=== PATIENT | female | born 1960 | race Caucasian/White ===

== ENCOUNTER 2017-04-08 08:58 | Inpatient (IN) | payer BC ==
--- OUTSIDE RECORDS SUMMARY | 2017-04-08 09:01 | XMS | Clinical Summary ---
:1960 Author Organization [facility] Address [address] [place] [phone] Phone Care Team Providers Name Role Phone , Primary Care Provider Unavailable Allergies Not on File Current Medications Not on file Active Problems Not on file Social History Tobacco Use Types Packs/Day Years Used Date Never Assessed Sex Assigned at Date Recorded Not on file Last Filed Vital Signs Not on file Plan of Treatment Not on file Results Not on filefrom Last 3 Months
[2017-04-08] MEDS ORDERED: Ondansetron HCl/PF 4 MG/2 ML Vial ONE (10:28)
[2017-04-08 10:30] LABS: #Basophils 0.2 thou/uL (0.0-0.2); #Eosinphils 0.3 thou/uL (0.0-0.7); #Lymphocytes 3.3 thou/uL (1.20-3.40); #Monocytes 0.9 thou/uL (0.11-0.59); #Neutrophils 9.3 thou/uL (1.40-6.50); %Basophils 1.2 % (0.0-1.0); %Eosinophils 2.2 % (0.0-10.0); %Lymphocytes 23.5 % (21.0-51.0); %Monocytes 6.7 % (0.0-10.0); Hematocrit 42.8 % (36.0-47.0); Mean Platelet Volume 7.8 fL (7.4-10.4); White Blood Cell (WBC) Count 13.9 thou/uL (4.8-10.8)
[2017-04-08 10:31] LABS: Prothrombin Time 13.8 SEC (12.0-14.7)
[2017-04-08 10:33] LABS: PTT 20.9 SEC (22.9-36.1)
[2017-04-08 10:36] LABS: Lactic Acid - Sepsis 1.5 mmol/L (0.5-2.2)
[2017-04-08 10:41] LABS: ALT (SGPT) 31 U/L (8-55); AST (SGOT) 33 U/L (5-34); Alkaline Phosphatase 88 U/L (40-150); Anion Gap 17 mmol/L (10-20); BUN (Urea Nitrogen) 24 mg/dL (9.8-20.1); Bilirubin, Total 0.8 mg/dL (0.2-1.2); Calc. Creatinine Clearance 0 mL/min (70-130); Calcium 9.6 mg/dL (7.8-10.44); Carbon Dioxide 25 mmol/L (22-29); Chloride 106 mmol/L (98-107); Estimated GFR-MDRD 62; Lipase 40 U/L (8-78); Protein, Total 6.8 g/dL (6.0-8.3)
--- NOTE | 2017-04-08 10:51 | RAD ---
KUB AND UPRIGHT: HISTORY: Abdominal pain. History of lupus, Hodgkin's lymphoma. Lower abdominal cramping for 2-1/2 days. The bowel gas pattern is nonobstructed. No free air. Surgical clips in the right upper quadrant ar e consistent with a prior cholecystectomy. There are surgical chain-type sutures in the left upper quadrant. There is an IV filter present. There are arthritic changes of the spine and there are va scular calcifications. Of note, a right hip prosthesis is present. There are some faint calcificat ions which overlie the lumbar spine and sacrum region. In reviewing a prior 2013 CT examination, th aleida appear to be calcifications related to soft tissue calcifications in that are posterior to the s pine within the subcutaneous tissue. PA CHEST: Heart size is within normal limits. There is some linear scarring of the left upper lobe. No focal infiltrative process. IMPRESSION: No acute changes. Correlation with any old CTs if they are available. POS: [facility]
[2017-04-08] MEDS ORDERED: Cipro 250 MG TAB ONE (11:50)
[2017-04-08] MEDS ORDERED: Ciprofloxacin 500 MG TAB ONE (11:50)
[2017-04-08] MEDS ORDERED: metroNIDAZOLE 500 MG TAB ONE (11:55)
[2017-04-08] MEDS ORDERED: Acetaminophen 325 MG TAB PO PRN (13:13)
[2017-04-08] MEDS ORDERED: Ondansetron ODT 4 MG TAB SL PRN (13:13)
[2017-04-08] MEDS ORDERED: Ondansetron HCl/PF 4 MG/2 ML Vial IVP PRN (13:13)
[2017-04-08 13:18] VITALS: BMI 32.6
[2017-04-08] MEDS ORDERED: ISOVUE-370 76%-LOCM 1 ML ONE (14:16)
[2017-04-08] MEDS ORDERED: Sodium Chloride 0.9% 1,000 ML IV SCH (15:00)
[2017-04-08] MEDS: Lidocaine 2% Viscous Solution 20 ML, Aluminum & Magnesium Hydroxide 30 ML, Donnatal Eli... SSW PRN ×3 (16:13)
[2017-04-08 16:30] LABS: #Eosinphils 0.3 thou/uL (0.0-0.7); #Lymphocytes 2.8 thou/uL (1.20-3.40); #Monocytes 0.7 thou/uL (0.11-0.59); #Neutrophils 5.3 thou/uL (1.40-6.50); %Basophils 0.2 % (0.0-1.0); %Lymphocytes 30.5 % (21.0-51.0); %Monocytes 7.8 % (0.0-10.0); Hematocrit 42.1 % (36.0-47.0); Mean Platelet Volume 6.9 fL (7.4-10.4); Red Blood Cell (RBC) Count 4.47 mill/uL (4.20-5.40)
[2017-04-08] MEDS ORDERED: Lorazepam 1 MG TAB PO PRN (17:59)
[2017-04-08] MEDS ORDERED: Cyclobenzaprine 10 MG TAB PO PRN (17:59)
[2017-04-08] MEDS ORDERED: HYDROcodone/Acetaminophen 10/325 mg Tablet PO PRN (17:59)
[2017-04-08] MEDS ORDERED: metroNIDAZOLE 500 MG TAB PO SCH (18:00)
[2017-04-08] MEDS: Sodium Chloride 0.9% 1,000 ML IV SCH (19:54)
[2017-04-08] MEDS ORDERED: Ciprofloxacin 500 MG TAB PO SCH (20:00)
[2017-04-08] MEDS: metroNIDAZOLE 500 MG in Premix Bag 1 BAG IVPB SCH (20:21)
[2017-04-08] MEDS: Pregabalin 75 MG CAP PO SCH (20:21)
[2017-04-08 21:46] LABS: Hematocrit 41.4 % (36.0-47.0)
--- NOTE | 2017-04-08 21:56 | CON ---
DATE OF CONSULTATION: 04/08/2017 REQUESTING PHYSICIAN: Dr. Evans. REASON FOR CONSULTATION: GI bleeding. HISTORY OF PRESENT ILLNESS: Maddie Topete is a 56-year-old woman seen in the GI outpatient [facility] by my colleague, Dr. Sage Lennon, Dr. Myers is her primary provider. She has a significant hi story of lupus, Sjogren syndrome and Hodgkin's lymphoma, which is in remission. She had a prior sle senia gastrectomy. Notes that her last EGD and colonoscopy were in 2012, the EGD was normal and the c olonoscopy showed only mild left-sided diverticulosis. She denies any significant chronic gastrointestinal symptoms, then 2 days ago she had the fairly acu te onset of crampy lower abdominal pain, later in the day she started having severe watery diarrhea with urgency, this seemed to resolve a bit, but then yesterday cramps returned, she again started meza ving watery diarrhea, but this turned into hematochezia, which lasted through the night, last night. Her lower abdominal cramping pain has persisted and she again passed few blood clots today, though this seems to have slow down. She presented to the Emergency Department where hemoglobin was mike l at 14.6, though declined a bit just at 13.7. FOBT was positive and an abdominal x-ray showed no a cute processes, no evidence of obstruction. She was started empirically on ciprofloxacin and metron idazole IV, and she was given a GI cocktail. Currently, she is feeling a bit better, though the abd ominal discomfort persists. REVIEW OF SYSTEMS: Full review of systems including constitutional, head, eyes, ears, nose, throat, GI, , cardiovascular, respiratory, musculoskeletal and neurologic systems is negative except as n oted in the HPI. PAST MEDICAL HISTORY: 1. Hodgkin lymphoma, status post chemotherapy, in remission. 2. Lupus. 3. Sjogren's syndrome. 4. Depression. 5. Gastric sleeve. 6. Cholecystectomy. 7. Appendectomy. 8. Pulmonary embolus with IVC filter placement. 9. 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 ALLERGIES: SULFASALAZINE and TRAMADOL. OUTPATIENT MEDICATIONS: Plaquenil, prednisone 10 mg daily, Lyrica, folic acid, aspirin 325 mg daily , omeprazole 20 mg daily, diltiazem, Brintellix, bupropion, vitamin, vitamin D3. INPATIENT MEDICATIONS: Ciprofloxacin IV, metronidazole IV, morphine p.r.n., Zofran p.r.n. FAMILY HISTORY: An aunt had colorectal cancer and multiple other malignancies in multiple family me mbers. SOCIAL HISTORY: She is a former smoker. PHYSICAL EXAMINATION: VITAL SIGNS: Temperature 98.0, pulse 56, blood pressure 102/59 and 96% oxygen saturation on room ai r. GENERAL: A 56-year-old woman, obese, lying in bed comfortably, in no distress. MENTAL: Alert and fully oriented, pleasant, conversational, gives a detailed coherent history. SKIN: No jaundice, no rashes were palpable. EYES: No scleral icterus. Extraocular movements intact. ENT: Mucous membranes moist, no oral lesions. LYMPH: No submandibular, supraclavicular lymphadenopathy. THYROID: Nontender to palpation. HEART: Regular rate and rhythm. LUNGS: Clear to auscultation bilaterally. ABDOMEN: Nondistended. Bowel sounds present. Soft, some diffuse tenderness to palpation, particul grant in the right and left lower quadrants. No guarding or rebound tenderness. EXTREMITIES: No peripheral edema. VESSELS: Radial pulses 2+ bilaterally. NEUROLOGICAL: Cranial nerves II through XII intact bilaterally. No focal deficits. LABORATORY STUDIES: Hemoglobin initially 14.6, now 13.7, WBC 9, platelets 155. BUN 24, creatinine 0.93. Sodium 144, potassium 4.4. INR 1.1. Lipase 40. Total bilirubin 0.8, alkaline phosphatase 8 8, AST 33, ALT 31, albumin 3.8. Lactic acid 1.5. FOBT is positive. IMAGING STUDIES: Abdominal x-ray shows no acute processes, no evidence of obstruction and no free a ir. She has an IVC filter and also some sutures in her left upper quadrant. ASSESSMENT AND PLAN: 1. Acute lower abdominal pain. 2. Acute hematochezia. The patient's presentation is all acute. I suspect this represents either ischemic or infectious colitis, or perhaps acute diverticulitis. Note that despite the bleeding, he moglobin remains in normal range. Continue to trend this. I agree with the empiric antibiotic ther apy. I do think it would be worthwhile to get a CT of the abdomen and pelvis to assess for acute di verticulitis picture versus acute colitis. Also, agree with the following stool studies, which have already been ordered to rule out infectious pathogens. If the CT scan is unrevealing and no significant symptomatic improvement tomorrow, then bowel prepar ation for colonoscopy could be considered for further investigation. Thank you for the consultation. Please call with questions or concerns.
--- NOTE | 2017-04-08 23:02 | CT ---
CT ABDOMEN WITH IV CONTRAST CT PELVIS WITH IV CONTRAST 04/08/17 HISTORY: Abdominal pain. Blood in stool. History of appendectomy and cholecystectomy as well as gastric sleev e procedure. COMPARISON: 11/21/[address] abdomen and pelvis on 01/05/14. There is minimal linear scarring versus atelectasis at each lung base. There is decreased density seen in the soft tissues posterior to the lumbar spine with multiple calc ifications noted. This is stable when compared to the prior exams. This is likely related to scarrin g with dystrophic calcifications. The liver, spleen, pancreas, bilateral adrenal glands, and left kidney demonstrate a normal CT appea francia. A punctate nonobstructing superior pole right renal calculus is again noted. Postsurgical changes related to gastric sleeve procedure are present. IVC filter is again noted in place. Vascular calcifications present in the abdominal aorta and involving the iliac arteries. Urinary bladder is normal in appearance. The uterus is small in size. There is colonic diverticulosis without CT evidence of diverticulitis. Cystic left ovary lesion is n ot visualized on this exam. Partially calcified lymph node in the right aspect of the pelvis is again seen. Avascular necrosis involves the superolateral aspect of the left femoral head. Right total hip prost hesis is present. Degenerative changes are again seen in the spine. IMPRESSION: 1. No acute findings are seen in the abdomen or pelvis. 2. Postsurgical changes of the abdomen as described above. 3. Colonic diverticulosis. 4. Area of what is most likely related to scarring posterior to the lumbar spine. 5. Avascular necrosis involving the superolateral aspect of the left femoral head. POS: [facility]
--- NOTE | 2017-04-09 01:49 | HP ---
PRIMARY CARE PHYSICIAN: Dr. Myers. CHIEF COMPLAINT: Bloody diarrhea. HISTORY OF PRESENT ILLNESS: This is a 56-year-old pleasant lady with the past medical history of ciera pus, Sjogren's syndrome, Hodgkin disease status post chemo, history of PE status post-IVC and gómez gonzalez, comes to the [place] [facility] with lower abdominal cramping started about 2-1/2 days. Patie nt had 5-6 episodes of nonbloody, watery diarrhea on Thursday and then had 8 episodes of maroon or blo od stools with bad odor yesterday. Denies any food changes, denies recent traveling or camping. Th e patient denies any fever or chills. Patient came in and was transferred to our hospital for GI ev aluation. The patient denies any chest pain or shortness of breath. PAST MEDICAL HISTORY: Significant for lupus, Sjogren's syndrome, Hodgkin disease status post chemo, PE status post-IVC filter. SOCIAL HISTORY: Occasional alcohol use, denies any smoking or recreational drug use. ALLERGIES: TRAMADOL and SULFASALAZINE. PAST SURGICAL HISTORY: Left salpingo-oophorectomy, appendectomy, left knee surgery, cholecystectomy . MEDICATIONS: Please see MAR. FAMILY HISTORY: Negative for diabetes and hypertension. REVIEW OF SYSTEMS: Significant for no fever, no chills, no headache, no appetite, and latencies. N o cough. No chest pain. GI: As per HPI. No dysuria, no polyuria, no memory or mood changes. No neck pain. PHYSICAL EXAMINATION: VITAL SIGNS: Blood pressure is 127/65, pulse of 63, respirations 20, temperature 98. GENERAL: The patient is lying in bed, in no apparent distress. HEENT: Atraumatic, normocephalic. Pupils equally round, reactive to light. Extraocular movements intact. Mucous membranes moist. NECK: Supple. No JVD. CHEST: Breath sounds. There are no rales or rhonchi. HEART: S1, S2, no murmurs or gallops. ABDOMEN: Has some generalized tenderness. Bowel sounds present, soft, nontender. EXTREMITIES: No cyanosis, clubbing, edema. Distal pulses present. NEUROLOGIC: Alert, awake, oriented. No cranial deficits. No sensorimotor deficits. LABORATORY DATA: KUB shows no acute changes. FOBT is positive. Potassium is 4.4, creatinine is 0. 9, INR is 1.1. WBC count is 9, hemoglobin is 13. ASSESSMENT AND PLAN: 1. Bloody diarrhea, infectious versus inflammatory in nature. We will empirically treat with IV Ci pro and Flagyl. Monitor hemoglobin and hematocrit. Consult Gastroenterology and follow their plan. 2. Sjogren's syndrome. Continue home medications. 3. History of lupus. Continue home medications. 4. Hodgkin's lymphoma, status post chemotherapy, stable. 5. History of pulmonary embolus, status post IVC filter, stable. 6. Sequential compression device for deep venous thrombosis prophylaxis. I will work with Gastroen terology and further monitoring. The patient will monitor hemoglobin and hematocrit, and transfuse as needed. I will work with Gastroenterology and further caring for the patient.
[2017-04-09 05:04] LABS: #Eosinphils 0.3 thou/uL (0.0-0.7); #Lymphocytes 1.9 thou/uL (1.20-3.40); #Monocytes 0.5 thou/uL (0.11-0.59); #Neutrophils 2.8 thou/uL (1.40-6.50); %Basophils 0.8 % (0.0-1.0); %Eosinophils 4.8 % (0.0-10.0); %Lymphocytes 34.1 % (21.0-51.0); %Monocytes 8.6 % (0.0-10.0); Hematocrit 41.8 % (36.0-47.0); Hematocrit 42.9 % (36.0-47.0); Red Blood Cell (RBC) Count 4.44 mill/uL (4.20-5.40); White Blood Cell (WBC) Count 5.4 thou/uL (4.8-10.8)
[2017-04-09] MEDS: metroNIDAZOLE 500 MG in Premix Bag 1 BAG IVPB SCH ×3 (05:18→20:11)
[2017-04-09 05:29] LABS: Anion Gap 13 mmol/L (10-20); BUN (Urea Nitrogen) 12 mg/dL (9.8-20.1); Calc. Creatinine Clearance 105 mL/min (70-130); Calcium 8.9 mg/dL (7.8-10.44); Carbon Dioxide 23 mmol/L (22-29); Chloride 109 mmol/L (98-107); Estimated GFR-MDRD 75
[2017-04-09] MEDS ORDERED: predniSONE 20 MG TAB PO SCH ×2 (08:00→19:00)
[2017-04-09] MEDS: Sodium Chloride 0.9% 1,000 ML IV SCH ×2 (09:28→12:16)
[2017-04-09] MEDS: Hydroxychloroquine Sulfate 200 MG TAB PO SCH (09:30)
[2017-04-09] MEDS: Folic Acid 1 MG TAB PO SCH (09:30)
[2017-04-09] MEDS: Pregabalin 75 MG CAP PO SCH ×3 (09:31→20:11)
[2017-04-09] MEDS: Lidocaine 2% Viscous Solution 20 ML, Aluminum & Magnesium Hydroxide 30 ML, Donnatal Eli... SSW PRN ×3 (12:10)
[2017-04-09] MEDS: VORTIOXETINE HYDROBROMIDE 20 MG PO SCH (12:10)
[2017-04-09 13:58] LABS: Hematocrit 45.6 % (36.0-47.0)
--- NOTE | 2017-04-09 19:08 | PRG ---
DATE OF SERVICE: 04/09/2017 SUBJECTIVE: She had diarrhea this morning, but this has resolved through the rest of the day. No o ngoing abdominal pain currently. No nausea or vomiting. She is tolerating full liquids well. OBJECTIVE: VITAL SIGNS: Temperature 98.2, pulse 94, and blood pressure 104/70. GENERAL: She is in no acute distress, alert and oriented x3. LUNGS: Clear to auscultation bilaterally. HEART: Regular rate and rhythm. ABDOMEN: Soft, mild tenderness diffusely, but more so in the epigastric region. Bowel sounds are p resent. EXTREMITIES: No lower extremity edema. LABORATORY DATA: White blood cell count 5.4, hemoglobin 13.6, platelets 151, and creatinine 0.79. IMPRESSION: Ischemic colitis. She had an onset of watery diarrhea and cramping followed later by earl calderon. This pattern is most consistent with ischemic colitis. Certainly acute infectious colitis is also possible. Given the bleeding, this will be more suggestive of a bacterial colitis and buddy l. So far, the stool studies are negative for Campylobacter antigen, Escherichia coli, Shiga toxin, and Clostridium difficile. She is clinically improving. RECOMMENDATIONS: 1. Complete a 5-day course of ciprofloxacin and metronidazole. 2. Advance to low residue diet in the morning and if she tolerates that, she can discharge home serena orrow with a bland diet for the next several days. 3. If she develops recurrent symptoms suggestive of ischemic colitis in the future, then CT angiogr am of the mesentery can be performed. 4. We will recommend colonoscopy in 4-6 weeks and she can follow up as an outpatient for this. 5. She is encouraged to drink plenty of fluids and maintain good hydration.
--- NOTE | 2017-04-09 19:16 | PRG ---
DATE OF SERVICE: 04/09/2017 SUBJECTIVE: The patient had a bowel movement containing fresh blood earlier today. She continues to have some discomfort in the left lower quadrant. She denies any nausea or vomiting. She is tolerating current diet. No fevers or chills reported. PHYSICAL EXAMINATION: VITAL SIGNS: Temperature 98.2, pulse rate of 94, blood pressure of 104/70 with O2 saturation of 98% on room air. Orthostatic vitals were positive today. Intake of 1535. Output unavailable. GENERAL: A 56-year-old female, in no apparent distress. NECK: Supple. No JVD. LUNGS: Clear to auscultation bilaterally. HEART: S1, S2 present. Regular rate and rhythm. ABDOMEN: Soft, mild left lower quadrant tenderness, without any rebound or guarding. No costovertebral angle tenderness. Bowel sounds present. EXTREMITIES: No edema or calf tenderness. CURRENT MEDICATIONS: Reviewed. LABORATORY DATA: 1. Stool workup was negative for Clostridium difficile, Campylobacter, and Shigella. 2. WBC was 13.9 yesterday. Today was 5.4. 3. Hemoglobin 14.7. 4. BUN 12, creatinine 0.79. IMPRESSION: 1. Sepsis secondary to colitis suspected ischemic versus infectious. 2. Hematochezia secondary to #1. 3. Dehydration. 4. Chronic kidney disease stage 2. 5. Sj?gren's syndrome.. 6. Systemic lupus erythematosus. 7. History of Hodgkin's lymphoma. 8. History of pulmonary embolus, status post IVC filter. 9. Suspected chronic adrenal insufficiency. 10. Orthostatic hypotension. 11. Obesity with body mass index 32.5. 12. Depression. The patient denies any suicidal ideation. 13. History of pulmonary embolism, status post IVC filter. 14. Degenerative joint disease. PLAN: The patient will require a 1-2 more days of hospital stay. We will continue ciprofloxacin and Flagyl. GI following. We will repeat labs in a.m. Home BP medications are currently on hold. We will temporarily increase prednisone to 10 mg b.i.d. We will recheck orthostatic vitals in a.m. Continue IV fluids. Continue other medications. Plan of care was discussed with the patient, she stated understanding MTDD
[2017-04-10] MEDS: Sodium Chloride 0.9% 1,000 ML IV SCH (00:14)
[2017-04-10] MEDS: metroNIDAZOLE 500 MG in Premix Bag 1 BAG IVPB SCH ×3 (04:29→19:51)
[2017-04-10 04:35] LABS: #Eosinphils 0.1 thou/uL (0.0-0.7); #Lymphocytes 1.2 thou/uL (1.20-3.40); #Monocytes 0.4 thou/uL (0.11-0.59); %Basophils 0.3 % (0.0-1.0); %Eosinophils 1.2 % (0.0-10.0); %Monocytes 6.2 % (0.0-10.0); Hematocrit 43.3 % (36.0-47.0); Mean Platelet Volume 7.5 fL (7.4-10.4); Red Blood Cell (RBC) Count 4.62 mill/uL (4.20-5.40); White Blood Cell (WBC) Count 6.8 thou/uL (4.8-10.8)
[2017-04-10 05:02] LABS: Anion Gap 12 mmol/L (10-20); BUN (Urea Nitrogen) 9 mg/dL (9.8-20.1); Calc. Creatinine Clearance 108 mL/min (70-130); Carbon Dioxide 22 mmol/L (22-29); Chloride 110 mmol/L (98-107); Estimated GFR-MDRD 77; Phosphorus 3.9 mg/dL (2.3-4.7)
[2017-04-10] MEDS: Folic Acid 1 MG TAB PO SCH (08:16)
[2017-04-10] MEDS: Hydroxychloroquine Sulfate 200 MG TAB PO SCH (08:16)
[2017-04-10] MEDS: predniSONE 20 MG TAB PO SCH ×2 (08:16→17:50)
[2017-04-10] MEDS: Pregabalin 75 MG CAP PO SCH ×3 (08:17→19:52)
[2017-04-10] MEDS: VORTIOXETINE HYDROBROMIDE 20 MG PO SCH (08:18)
[2017-04-10] MEDS: Lidocaine 2% Viscous Solution 20 ML, Aluminum & Magnesium Hydroxide 30 ML, Donnatal Eli... SSW PRN ×3 (10:47)
--- NOTE | 2017-04-10 14:31 | PRG ---
DATE OF SERVICE: 04/10/2017 SUBJECTIVE: We advanced Ms. Topete's diet to solid food this morning. After that, she developed an other couple of episodes of bloody diarrhea, but she has tolerated her lunch well without any sympto ms, so far. She has no nausea, some mild left lower tenderness, but no ongoing pain. OBJECTIVE: VITAL SIGNS: Temperature 97.8, pulse 63, blood pressure 115/62. GENERAL: No acute distress, awake and alert. LUNGS: Clear to auscultation bilaterally. HEART: Regular rate and rhythm. ABDOMEN: Soft, mildly tender in the left lower quadrant without guarding. Bowel sounds are present . EXTREMITIES: No lower extremity edema. LABORATORY DATA: White blood cell count 6.8 and creatinine 0.77. IMPRESSION: Ischemic colitis. Overall, she is continuing to symptomatically improve. Given the re peat flare of bloody diarrhea this morning, I would watch her one more day and if she continues to i mprove, then anticipate discharge home tomorrow. She remains afebrile. RECOMMENDATIONS: 1. She can complete a 5-day course of ciprofloxacin 500 mg twice daily and metronidazole 500 mg 3 t imes daily. This can be changed to oral once she is ready to be discharged tomorrow. 2. Follow up with me in 4-6 weeks for colonoscopy. 3. She is encouraged to maintain good hydration and drink plenty of fluids. 4. Dr. Werner will round tomorrow if she is not already discharged in the morning by the hospitalist service. 5. If she develops recurrent symptoms suggestive of ischemic colitis in the future, then CT angiogr am of the mesentery can be performed.
--- NOTE | 2017-04-10 16:01 | PDOC.PN ---
- Subjective Encounter Start Date: 04/10/17 Encounter Start Time: 14:15 Subjective: had 2 episodes of dark blood after she moved her bowels this am after break -: -fast, no nausea or vomiting. - Objective MAR Reviewed: Yes Vital Signs & Weight: Vital Signs (12 hours) Temp Pulse Resp BP BP BP BP 04/10/17 15:46 98.2 F 65 16 100/61 85/61 L 107/64 04/10/17 11:47 97.8 F 63 18 115/62 04/10/17 08:00 97.8 F 58 L 16 04/10/17 07:34 97.8 F 58 L 16 124/68 04/10/17 04:00 97.4 F L 62 18 112/68 Pulse Ox 04/10/17 15:46 96 04/10/17 11:47 95 04/10/17 08:00 98 04/10/17 07:34 98 04/10/17 04:00 98 Weight Weight 189 lb 4.8 oz I&O: 04/09/17 04/10/17 04/11/17 06:59 06:59 06:59 Intake Total 1535 240 Balance 1535 240 Result Diagrams: 04/10/17 04:21 04/10/17 04:21 Phys Exam - Physical Examination HEENT: PERRLA, moist MMs Neck: no JVD, supple Respiratory: no wheezing, no rales Cardiovascular: RRR, no significant murmur Gastrointestinal: soft, non-tender, no distention, positive bowel sounds Musculoskeletal: no edema, pulses present Neurological: non-focal, moves all 4 limbs Psychiatric: A&O x 3 Dx/Plan (1) Ischemic colitis, enteritis, or enterocolitis Code(s): K55.9 - VASCULAR DISORDER OF INTESTINE, UNSPECIFIED Status: Acute (2) Dehydration Code(s): E86.0 - DEHYDRATION Status: Resolved (3) History of pulmonary embolus (PE) Code(s): Z86.711 - PERSONAL HISTORY OF PULMONARY EMBOLISM Status: Chronic Comment: prior ivc filter (4) H/O adrenal insufficiency Code(s): Z86.39 - PERSONAL HISTORY OF ENDO, NUTRITIONAL AND METABOLIC DISEASE Status: Chronic Comment: on prednisone (5) H/O Hodgkin's lymphoma Code(s): Z85.71 - PERSONAL HISTORY OF HODGKIN LYMPHOMA Status: Chronic (6) Systemic lupus erythematosus Code(s): M32.9 - SYSTEMIC LUPUS ERYTHEMATOSUS, UNSPECIFIED Status: Chronic - Plan is on cipro and flagyl -: oral prednisone with h/o adrenal insuff -: to amb in hallway as tolerated -: dc plan in am if stable -: h/h is stable so far * . Review of Systems - Medications/Allergies Allergies/Adverse Reactions: Allergies Allergy/AdvReac Type Severity Reaction Status Date / Time sulfasalazine Allergy Rash Verified 01/15/16 09:21 tramadol Allergy Hives Verified 01/15/16 09:21 Medications: Current Medications Hydrocodone Bitart/Acetaminophen ([place] 10/325) 1 tab PO Q4H PRN PRN Reason: Moderate Pain (4-6) Lidocaine HCl 20 ml/ Al Hydroxide/Mg Hydroxide 30 ml/Atropine/Hyoscyam/Phenobarb /Scopol 32.4 mg 0 ml SSW Q6H PRN PRN Reason: ABDOMINAL PAIN Last Admin: 04/10/17 10:47 Dose: 1 dose Cyclobenzaprine HCl (Flexeril) 10 mg PO TIDPRN PRN PRN Reason: Muscle Spasm Folic Acid (Folvite) 1 mg PO DAILY [facility] Last Admin: 04/10/17 08:16 Dose: 1 mg Hydroxychloroquine Sulfate (Plaquenil) 400 mg PO DAILY [facility] Last Admin: 04/10/17 08:16 Dose: 400 mg Ciprofloxacin/Dextrose 400 mg/ (Device) 200 mls @ 200 mls/hr IVPB 1200,2359 [facility] Last Admin: 04/10/17 12:02 Dose: 200 mls Metronidazole 500 mg/ Device 100 mls @ 100 mls/hr IVPB 0400,1200,2000 [facility] Last Admin: 04/10/17 12:02 Dose: 100 mls Sodium Chloride (Normal Saline 0.9%) 1,000 mls @ 75 mls/hr IV .[id number] [facility] Stop: 04/10/17 18:16 Last Admin: 04/10/17 00:14 Dose: 1,000 mls Lorazepam (Ativan) 1 mg PO Q6H PRN PRN Reason: Anxiety Morphine Sulfate (Morphine Sulfate) 1 mg SLOW IVP Q3H PRN PRN Reason: Pain Pantoprazole Sodium (Protonix) 40 mg PO DAILY [facility] Last Admin: 04/10/17 08:16 Dose: 40 mg (Vortioxetine Hydrobromide [ Trintellix] 20 Mg) Tab 0 each PO DAILY [facility] Last Admin: 04/10/17 08:18 Dose: 1 each Prednisone (Prednisone) 10 mg PO BID-[facility] Last Admin: 04/10/17 08:16 Dose: 10 mg Pregabalin (Lyrica) 150 mg PO TID [facility] Last Admin: 04/10/17 15:50 Dose: Not Given
[2017-04-11] MEDS: metroNIDAZOLE 500 MG in Premix Bag 1 BAG IVPB SCH (02:27)
[2017-04-11 08:08] VITALS: TEMP 98
[2017-04-11] MEDS: Hydroxychloroquine Sulfate 200 MG TAB PO SCH (08:26)
[2017-04-11] MEDS: predniSONE 20 MG TAB PO SCH (08:27)
[2017-04-11] MEDS: Pregabalin 75 MG CAP PO SCH (08:27)
[2017-04-11] MEDS: Folic Acid 1 MG TAB PO SCH (08:27)
[2017-04-11] MEDS: VORTIOXETINE HYDROBROMIDE 20 MG PO SCH (08:28)
[2017-04-11 11:33] VITALS: BP 110/70
--- NOTE | 2017-04-11 11:41 | PDOC.PN ---
- Subjective Encounter Start Date: 04/11/17 Encounter Start Time: 11:00 Subjective: feels better, no further bleeding per rectum -: is amb in room - Objective MAR Reviewed: Yes Vital Signs & Weight: Vital Signs (12 hours) Temp Pulse Resp BP BP Pulse Ox 04/11/17 11:32 98.0 F 64 18 110/70 94 L 04/11/17 08:06 98.0 F 53 L 20 115/69 96 04/11/17 08:00 98.0 F 53 L 20 96 Weight Weight 189 lb 4.8 oz I&O: 04/10/17 04/11/17 04/12/17 06:59 06:59 06:59 Intake Total 240 3360 240 Balance 240 3360 240 Result Diagrams: 04/10/17 04:21 04/10/17 04:21 Phys Exam - Physical Examination HEENT: PERRLA, moist MMs Neck: no JVD, supple Respiratory: no wheezing, no rales Cardiovascular: RRR, no significant murmur Gastrointestinal: soft, non-tender, positive bowel sounds Musculoskeletal: no edema, pulses present Neurological: non-focal, moves all 4 limbs Psychiatric: A&O x 3 Dx/Plan (1) Ischemic colitis, enteritis, or enterocolitis Code(s): K55.9 - VASCULAR DISORDER OF INTESTINE, UNSPECIFIED Status: Acute (2) Dehydration Code(s): E86.0 - DEHYDRATION Status: Resolved (3) History of pulmonary embolus (PE) Code(s): Z86.711 - PERSONAL HISTORY OF PULMONARY EMBOLISM Status: Chronic Comment: prior ivc filter (4) H/O adrenal insufficiency Code(s): Z86.39 - PERSONAL HISTORY OF ENDO, NUTRITIONAL AND METABOLIC DISEASE Status: Chronic Comment: on prednisone (5) H/O Hodgkin's lymphoma Code(s): Z85.71 - PERSONAL HISTORY OF HODGKIN LYMPHOMA Status: Chronic (6) Systemic lupus erythematosus Code(s): M32.9 - SYSTEMIC LUPUS ERYTHEMATOSUS, UNSPECIFIED Status: Chronic - Plan hemostable -: dc pt home -: to f/u with for colonoscopy -: daniel orantes per 's advice * .
--- NOTE | 2017-04-13 07:20 | DIS ---
DATE OF ADMISSION: 04/08/2017 DATE OF DISCHARGE: 04/11/2017 DISCHARGE DISPOSITION: To home. PRIMARY DISCHARGE DIAGNOSES: Ischemic colitis/gastroenteritis with enterocolitis, dehydration, resolved. SECONDARY DISCHARGE DIAGNOSES: History of pulmonary embolus with prior IVC filter, history of adrenal insufficiency on prednisone, history of Hodgkin's lymphoma in remission, history of systemic lupus erythematosus. PROCEDURES DONE DURING HOSPITALIZATION: The patient has had abdominal and pelvic CAT scan with IV contrast done that showed no acute findings. There was colonic diverticulosis. There is also incidental finding of avascular necrosis involving supralateral aspect of left femoral head. Stool cultures for Campylobacter antigen, E. coli, Shiga toxins 1 and 2, C. diff were all negative. Stool occult blood was positive. H\T\H on the day of discharge are 14 and 43. DISCHARGE MEDICATIONS: Cipro 500 mg p.o. twice daily for 5 days, Flagyl 500 mg p.o. 3 times daily for 5 days, prednisone 10 mg p.o. daily, bupropion extended release 300 mg p.o. daily, Trintellix 20 mg p.o. at bedtime, Lyrica 150 mg p.o. 3 times daily, omeprazole 20 mg p.o. daily, Plaquenil 400 mg p.o. daily, [place] p.r.n. for pain, folic acid 1 mg p.o. daily, vitamin D3 5000 units p.o. daily. ALLERGIES: SULFASALIZINE and TRAMADOL. INPATIENT CONSULTS: Dr. Sage Lennon for Gastroenterology. BRIEF COURSE DURING HOSPITALIZATION: The patient got admitted on the with complaints of bloody diarrhea. She has had nearly 8 episodes of maroon or blood -stained stools with bad odor prior to hospitalization. She has had stool studies done which were negative for bacterial etiology. She has had consultation with Dr. Jered Lennon. CT of the abdomen and pelvis did not reveal any acute pathology. The patient was suspected to have ischemic colitis. She was gently hydrated during her stay here with initial presentation with dehydration. She was on empiric antibiotics and will be continued for another 5 days post-discharge. The patient needs to follow up with Dr. Jered Lennon in 2-3 weeks for colonoscopy. She is otherwise hemodynamically stable and has been cleared by Dr. Jered Lennon for discharge. She needs to follow up with her primary care physician in 1 week. Please see a face to face documentation on [facility] for the day of discharge. MTDD
== END 2017-04-11 11:56 | disposition home or self-care (01) | DRG 872 ==
LOC: SCSER 08:58 → OBSVTOIN 11:15 → 2SW 11:15 → T4-B 04-09 14:23
PROVIDERS: ADMIT Internal Medicine; ATTEND Internal Medicine
DX: A41.9 Sepsis, unspecified organism (principal); K55.9 Vascular disorder of intestine, unspecified; C81.90 Hodgkin lymphoma, unspecified, unspecified site; M35.00 Sjogren syndrome, unspecified; M32.9 Systemic lupus erythematosus, unspecified; E86.0 Dehydration; K92.1 Melena; Z86.711 Personal history of pulmonary embolism; Z92.21 Personal history of antineoplastic chemotherapy; Z90.721 Acquired absence of ovaries, unilateral; Z90.49 Acquired absence of other specified parts of digestive tract; Z88.5 Allergy status to narcotic agent; Z88.2 Allergy status to sulfonamides; N18.2 Chronic kidney disease, stage 2 (mild); Z86.39 Personal history of other endocrine, nutritional and metabolic disease; I95.1 Orthostatic hypotension; E66.9 Obesity, unspecified; Z68.32 Body mass index [BMI] 32.0-32.9, adult; F32.9 Major depressive disorder, single episode, unspecified; M19.90 Unspecified osteoarthritis, unspecified site; K52.9 Noninfective gastroenteritis and colitis, unspecified; Z90.3 Acquired absence of stomach [part of]
CPT/HCPCS: 36415; 74022; 74177; 80048; 80053; 82274; 83605; 83690; 83735; 84100; 85025; 85610; 85730; 86850; 86900; 86901; 87015; 87045; 87046; 87324; 87449; 87899; 96361; 96374; 96375; J0744; J2270; J2405; J7506

== ENCOUNTER 2017-05-07 08:41 | Outpatient (CLI) | payer BC ==
--- NOTE | 2017-05-07 11:07 | MRI ---
MRI BRAIN WITH AND WITHOUT CONTRAST: Technique: Multiplanar, multisequential MRI imaging of the brain obtained. Post contrast imaging obt ained with administration of 18 cc of MultiHance IV. History: Confusion. History of Hodgkin's lymphoma. FINDINGS: Ventricles have normal size and position. There is mild cortical volume loss. No evidence of restric farhana diffusion. No mass or edema. There are numerous small foci of high signal in the periventricular and subcortical white matter of both cerebral hemispheres. Chronic ischemic microvascular automatic change would be suspected. There is no evidence of enhancement. The visualized internal carotid arteries and proximal cerebral arteries show flow voids. Basilar art dorothy appears patent. Paranasal sinuses and mastoids are unremarkable. IMPRESSION: Evidence of mild to moderate chronic ischemic white matter changes. MRI brain otherwise unremarkable . POS: TORYH
[2017-05-07] MEDS ORDERED: Gadobenate Dimeglumine 529 MG/1 ML (20ML VIAL) ONE (13:31)
--- OUTSIDE RECORDS SUMMARY | 2017-05-08 01:45 | XMS | Clinical Summary ---
:1960 Author Organization [facility] Address [address] [place] [id number] Phone Care Team Providers Name Role Phone [...]
== END 2017-05-07 08:42 | disposition home or self-care (01) ==
LOC: MRI 08:41
PROVIDERS: ATTEND Student in an Organized Health Care Education/Training Program
DX: G25.2 Other specified forms of tremor (principal); R41.3 Other amnesia; G93.89 Other specified disorders of brain; I26.99 Other pulmonary embolism without acute cor pulmonale; Z79.899 Other long term (current) drug therapy
CPT/HCPCS: 70553; 95816; A9579

== ENCOUNTER 2017-05-21 10:33 | Inpatient (IN) | payer BC ==
[2017-05-21 11:13] LABS: #Basophils 0.1 thou/uL (0.0-0.2); #Eosinphils 0.3 thou/uL (0.0-0.7); #Lymphocytes 1.3 thou/uL (1.20-3.40); #Monocytes 0.7 thou/uL (0.11-0.59); #Neutrophils 7.3 thou/uL (1.40-6.50); %Basophils 1.3 % (0.0-1.0); %Eosinophils 2.8 % (0.0-10.0); %Lymphocytes 13.3 % (21.0-51.0); %Monocytes 7.5 % (0.0-10.0); Hematocrit 43.5 % (36.0-47.0); Mean Platelet Volume 7.7 fL (7.4-10.4); White Blood Cell (WBC) Count 9.7 thou/uL (4.8-10.8)
[2017-05-21 11:19] LABS: PTT 25.8 SEC (22.9-36.1)
[2017-05-21 11:20] LABS: Prothrombin Time 14.4 SEC (12.0-14.7)
[2017-05-21 11:27] LABS: ALT (SGPT) 35 U/L (8-55); AST (SGOT) 34 U/L (5-34); Alkaline Phosphatase 94 U/L (40-150); Anion Gap 17 mmol/L (10-20); BUN (Urea Nitrogen) 36 mg/dL (9.8-20.1); Bilirubin, Total 0.9 mg/dL (0.2-1.2); Calc. Creatinine Clearance 0 mL/min (70-130); Calcium 9.6 mg/dL (7.8-10.44); Carbon Dioxide 21 mmol/L (22-29); Chloride 105 mmol/L (98-107); Estimated GFR-MDRD 46; Globulin 2.8 g/dL (2.4-3.5); Protein, Total 6.5 g/dL (6.0-8.3)
[2017-05-21] MEDS ORDERED: Ondansetron HCl/PF 4 MG/2 ML Vial ONE (11:50)
[2017-05-21] MEDS ORDERED: Pantoprazole 40 MG VIAL ONE (13:06)
[2017-05-21] MEDS ORDERED: Ondansetron HCl/PF 4 MG/2 ML Vial IVP PRN (14:39)
[2017-05-21] MEDS ORDERED: Calcium Carbonate 500 MG ChewTAB PO PRN (14:39)
[2017-05-21] MEDS ORDERED: Acetaminophen 325 MG TAB PO PRN (14:39)
[2017-05-21] MEDS ORDERED: Ondansetron ODT 4 MG TAB PO PRN (14:39)
[2017-05-21] MEDS ORDERED: Hydrocortisone Sod Succ/PF 100 mg/2 ml Vial IVP SCH (14:45)
[2017-05-21] MEDS: Dextrose 5 % And 0.9 % NaCl 1,000 ML IV SCH ×2 (14:53→20:31)
[2017-05-21] MEDS ORDERED: Pantoprazole 40 MG VIAL IVP SCH (15:00)
[2017-05-21] MEDS: Hydrocortisone Sod Succ/PF 100 mg/2 ml Vial IVP SCH ×2 (15:47→20:32)
[2017-05-21 16:26] LABS: Hematocrit 41.4 % (36.0-47.0)
[2017-05-21 16:28] VITALS: BMI 32.0
[2017-05-21 16:48] LABS: Troponin I Less than 0.010 ng/mL (< 0.028)
--- NOTE | 2017-05-21 17:41 | HP ---
DATE OF ADMISSION: 05/21/2017 PRIMARY CARE PHYSICIAN: Dr. Myers. PRIMARY BUSINESS APPLICATIONS ANALYST: Dr. Lennon. CHIEF COMPLAINT: Rectal bleeding. HISTORY OF PRESENT ILLNESS: The patient is a 57-year-old female with systemic lupus erythematosus, on chronic steroids; Sjogren's syndrome; Hodgkin's lymphoma, status post chemotherapy; obesity, stat us post gastric sleeve with recent ischemic colitis; who presented to the hospital with above compla ints. She was admitted at this facility from 04/08/2017 to 04/11/2017. She was discharged home on ciprofloxacin and Flagyl. She currently takes prednisone 10 mg on the daily basis. The patient was scheduled for colonoscopy tomorrow. She started with abdominal cramping yesterday a fternoon. Last night, she had loose stool along with fresh blood. Later on, she noticed dark sheyla colored stool. She also felt lightheaded; however, denies any syncope. No chest pain, palpitation s reported. She denies any hematemesis or melena. No recent use of nonsteroidal anti-inflammatory drugs. She is currently on omeprazole. In the emergency room, initial vital signs showed temperature 97.8, respirations of 18, pulse rate o f 72, blood pressure of 112/48. Lowest blood pressure was 82/38. Her initial hemoglobin was 14.5. She received 2 liter IV fluid with 40 mg IV Protonix and Zofran. Due to blood pressure persistentl y on the lower side, she received 80 mg IV steroids due to chronic steroid use. Her Hemoccult stool was positive per ER report. PAST MEDICAL HISTORY: 1. Recent ischemic versus infectious colitis. 2. Chronic kidney disease, stage 2. 3. Sjogren's syndrome. 4. Systemic lupus erythematosus. 5. Chronic steroid use. 6. History of Hodgkin's lymphoma, status post chemotherapy. 7. History of pulmonary embolism, status post IVC filter. 8. Obesity with a BMI of 32.5. 9. Depression. 10. Degenerative joint disease. PAST SURGICAL HISTORY: 1. Cholecystectomy. 2. Appendectomy. 3. IVC filter placement. 4. Right hip replacement due to avascular necrosis. ALLERGIES: The patient is allergic to SULFASALAZINE and TRAMADOL. CURRENT HOME MEDICATIONS: To be verified with the pharmacy. The patient does not remember the exac t dosages of all of her medications. FAMILY HISTORY: One aunt with colorectal cancer. There are also multiple malignancies in her famil y. SOCIAL HISTORY: She is a former smoker. Denies current use of alcohol or recreational drug use. REVIEW OF SYSTEMS: The following complete review of systems was negative, unless otherwise mentione d in the HPI or below: Constitutional: Weight loss or gain, ability to conduct usual activities. Skin: Rash, itching. Eyes: Double vision, pain. ENT/Mouth: Nose bleeding, neck stiffness, pain, tenderness. Cardiovascular: Palpitations, dyspnea on exertion, orthopnea. Respiratory: Shortness of breath, wheezing, cough, hemoptysis, fever or night sweats. Gastrointestinal: Poor appetite, abdominal pain, heartburn, nausea, vomiting, constipation, or diar saira. Genitourinary: Urgency, frequency, dysuria, nocturia. Musculoskeletal: Pain, swelling. Neurologic/Psychiatric: Anxiety, depression. Allergy/Immunologic: Skin rash, bleeding tendency. PHYSICAL EXAMINATION: VITAL SIGNS: As discussed above. HEENT: Head atraumatic, normocephalic. Sclerae anicteric. Moist mucous membranes. Conjunctivae w ere pale. No oral lesion. NECK: Supple, no JVD, no carotid bruit. LUNGS: Clear to auscultation bilaterally. HEART: S1, S2 present. Regular rate and rhythm. No rubs or gallops. ABDOMEN: Soft, mild tenderness in the lower quadrants. No rebound, guarding, no costovertebral ang le tenderness. Bowel sounds were present. EXTREMITIES: No edema or calf tenderness. NEUROLOGIC: Grossly nonfocal, moves all four extremities. PSYCHIATRY: Alert, awake, oriented x3. SKIN: Warm and dry. LYMPH NODES: No palpable lymph nodes in the neck. PERIPHERAL VASCULAR: Radial pulses palpable bilaterally. MUSCULOSKELETAL: No joint swelling or tenderness. LABORATORY FINDINGS: As discussed above. Repeat hemoglobin was 13.7. BUN was 36 with creatinine o f 1.1. PT, INR, PTT are in normal range. Stool for occult blood was positive. Recent abdominal CT showed diverticulosis without any acute findings. Telemetry monitoring by my re view showed sinus rhythm. EKG by my review showed normal sinus rhythm without significant ST-T wave changes. IMPRESSION AND PLAN: 1. Lower gastrointestinal bleeding. Suspected ischemic colitis. 2. Orthostatic hypotension secondary to #1. 3. Anemia secondary to acute gastrointestinal blood loss. She dropped account from 14.5 to 13.7. 4. History of Sjogren's syndrome/lupus, on chronic steroids. 5. History of Hodgkin's lymphoma, status post chemotherapy. 6. History of pulmonary embolism, status post IVC filter. 7. Obesity with a BMI of 32.5 8. Depression without any suicidal ideation. 9. Degenerative joint disease. 10. The patient will be monitored on the telemetry unit. Gastroenterology will be consulted. We w ill check orthostatic vitals on the daily basis. We will continue aggressive IV fluid. We will tra nsfuse her if hemoglobin drops below 7. Gastroenterology has been notified. We will continue stres s dose steroids for a day or two and gradually tapered to her home prednisone 10 mg daily. We will repeat H\T\H tonight at 10:00 p.m. We will check iron studies in a.m. including reticulocyte count. We will check one troponin today. We will keep her n.p.o. with ice chips. Plan of care was discussed with the patient. She stated understanding.
[2017-05-21] MEDS: Pantoprazole 40 MG VIAL IVP SCH (20:31)
[2017-05-21] MEDS ORDERED: FLU VACC QS2017-18 36 mo. & older 0.5 ML SYRINGE IM ONE (21:00)
[2017-05-21 22:09] LABS: Hematocrit 41.3 % (36.0-47.0)
[2017-05-22] MEDS: Hydrocortisone Sod Succ/PF 100 mg/2 ml Vial IVP SCH ×4 (04:10→21:00)
[2017-05-22] MEDS: Dextrose 5 % And 0.9 % NaCl 1,000 ML IV SCH ×5 (04:10→20:59)
[2017-05-22 05:08] LABS: IRF 0.261 Ratio (0.163-0.362); Reticulocyte Count 1.7 % (0.5-1.5)
[2017-05-22 05:12] LABS: #Lymphocytes 0.6 thou/uL (1.20-3.40); #Monocytes 0.1 thou/uL (0.11-0.59); #Neutrophils 7.7 thou/uL (1.40-6.50); %Basophils 0.3 % (0.0-1.0); %Lymphocytes 7.4 % (21.0-51.0); %Monocytes 1.3 % (0.0-10.0); Hematocrit 41.6 % (36.0-47.0); Mean Platelet Volume 7.2 fL (7.4-10.4); Red Blood Cell (RBC) Count 4.46 mill/uL (4.20-5.40); White Blood Cell (WBC) Count 8.5 thou/uL (4.8-10.8)
[2017-05-22 05:44] LABS: ALT (SGPT) 27 U/L (8-55); AST (SGOT) 22 U/L (5-34); Alkaline Phosphatase 79 U/L (40-150); Anion Gap 13 mmol/L (10-20); BUN (Urea Nitrogen) 16 mg/dL (9.8-20.1); Bilirubin, Total 0.5 mg/dL (0.2-1.2); Calc. Creatinine Clearance 105 mL/min (70-130); Calcium 8.6 mg/dL (7.8-10.44); Carbon Dioxide 21 mmol/L (22-29); Chloride 111 mmol/L (98-107); Estimated GFR-MDRD 76; Globulin 2.5 g/dL (2.4-3.5); Iron 34 ug/dL (50-170); Phosphorus 3.4 mg/dL (2.3-4.7); Protein, Total 5.7 g/dL (6.0-8.3)
--- NOTE | 2017-05-22 06:17 | CON ---
DATE OF CONSULTATION: 05/21/2017 REASON FOR CONSULTATION: Rectal bleeding. HISTORY OF PRESENT ILLNESS: Ms. Topete is a 57-year-old female who was admitted to the hospital [facility] after having some diarrhea with blood. She states that last night she has been doing well and th en woke up early in the morning about 1:00 with diarrhea that got looser and looser to the point whe re she was having severe cramps and then some bloody stools which were brick red to maroon. It is v dorothy similar to when she had the previous admission when she was empirically diagnosed with ischemic colitis in March. In fact, she was scheduled to have a follow-up colonoscopy tomorrow as an out patient and she has not really been having any problems since that bout back in March. Her last colonoscopy she reports was at this hospital. In fact, I performed an EGD and colonoscopy in 2012 for right upper quadrant flank pain and she had a normal EGD and a colonoscopy notable for diverticu losis. Presently, the patient feels fine. She is not having any cramps or pain. She has received stress d ose steroids intravenously. She is on chronic steroids. PAST MEDICAL HISTORY: 1. Recent bloody diarrhea with an episode of colitis, felt to be ischemic, although it was not conf irmed at that time. 2. Chronic kidney disease, stage 2. 3. Sjogren syndrome. 4. SLE. 5. Chronic steroid use. 6. History of Hodgkin lymphoma with previous chemo. 7. History of pulmonary embolism, previous IVC filter. 8. Obesity with BMI of 32. 9. Depression. 10. Degenerative joint disease. PAST SURGICAL HISTORY: Cholecystectomy; appendectomy; IVC filter; right hip replacement; upper and lower endoscopy in 2010, normal. ALLERGIES: SULFASALAZINE and TRAMADOL. CURRENT MEDICATIONS: At home, prednisone 10 mg a day, bupropion 300 mg at bedtime, Trintellix 20 mg at bedtime, Lyrica 150 mg t.i.d., Zofran 4 mg p.r.n. q. 4-6 hours, omeprazole 20 mg daily, multivit cheng, lorazepam, Plaquenil, hydrocodone and acetaminophen, potassium, vitamin B. ACTIVE MEDICATIONS: Presently, Tylenol, Tums, D5 normal saline 150 an hour, hydrocortisone 50 mg IV q. 6 hours, influenza shot, Protonix. PHYSICAL EXAMINATION: GENERAL: The patient is resting comfortably in bed. VITAL SIGNS: Temperature is 98, pulse 70, blood pressure is 118/58. In the emergency room, blood p ressure was 89/39 apparently standing, 117/48 reclining. LUNGS: Clear. HEART: Regular rate and rhythm. ABDOMEN: Mild suprapubic tenderness. She has no rebound. She has no guarding EXTREMITIES: No clu bbing, cyanosis, or edema. LABORATORY STUDIES: Hemoglobin was 14.5 on admission; it was 13.7 now, white count was 9.7 on admis carlos; platelet count was 148. INR 1.1. Comprehensive metabolic profile normal except for BUN and c reatinine of 36 and 1.19. Urine was negative for ketones. ASSESSMENT: The patient with signs of dehydration with orthostasis with diarrhea at home last night , was watery, then turned bloody with cramping. Differential diagnosis would include infectious col itis or ischemic colitis; ischemic is more likely. Actually, this is a very similar presentation to March. She was going to have a colonoscopy as an outpatient tomorrow Her dialysis has been pu t on hold. PLAN: We will continue the IV steroids. We will continue IV fluids. We will let her start a liqui d diet and consider colonoscopy either tomorrow or Thursday. We would like to have some improvement in her hydration before prepping her at this time.
[2017-05-22] MEDS: Pantoprazole 40 MG VIAL IVP SCH ×2 (09:03→21:01)
--- NOTE | 2017-05-22 12:13 | PDOC.PN ---
- Subjective Encounter Start Date: 05/22/17 Encounter Start Time: 12:11 Subjective: denies nay more diarrhea or bleeding per rectum. -: tolerating CLD. no nausea/vomiting. -: no fever/chills - Objective Resuscitation Status: Resuscitation Status FULL:Full Resuscitation MAR Reviewed: Yes Vital Signs & Weight: Vital Signs (12 hours) Temp Pulse Resp BP BP BP BP 05/22/17 11:49 98 F 75 16 126/58 L 05/22/17 08:40 98.2 F 68 18 05/22/17 07:34 98.2 F 68 18 115/55 L 119/56 L 118/58 L 05/22/17 06:56 05/22/17 04:03 97.9 F 70 18 108/59 L 111/57 L 115/57 L 05/22/17 01:24 Pulse Ox 05/22/17 11:49 98 05/22/17 08:40 96 05/22/17 07:34 96 05/22/17 06:56 95 05/22/17 04:03 96 05/22/17 01:24 96 Weight Weight 188 lb 11.2 oz I&O: 05/21/17 05/22/17 05/23/17 06:59 06:59 06:59 Intake Total 4340 Output Total 2250 Balance 2090 Result Diagrams: 05/22/17 04:20 05/22/17 04:20 Additional Labs: Microbiology 05/21/17 11:24 Stool - Pending Stool Occult Blood (RAY) - Final Laboratory Tests 05/21/17 05/21/17 05/21/17 11:02 16:03 16:03 Hgb 14.5 13.7 Iron TIBC Ferritin Troponin I Less than 0.010 05/21/17 05/22/17 05/22/17 21:52 04:20 04:20 Hgb 13.2 13.5 Iron 34 L TIBC 195 L Ferritin Troponin I 05/22/17 04:20 Hgb Iron TIBC Ferritin 281.14 Troponin I Phys Exam - Physical Examination Constitutional: NAD HEENT: PERRLA, moist MMs, sclera anicteric, oral pharynx no lesions Neck: no nodes, no JVD, supple, full ROM Respiratory: no wheezing, no rales, no rhonchi, clear to auscultation bilateral Cardiovascular: RRR, no significant murmur, no rub, gallop, irregular Gastrointestinal: soft, non-tender, no distention, positive bowel sounds Musculoskeletal: no edema, pulses present Neurological: non-focal, normal sensation, moves all 4 limbs Psychiatric: normal affect, A&O x 3 Skin: no rash Dx/Plan (1) Acute GI bleeding Code(s): K92.2 - GASTROINTESTINAL HEMORRHAGE, UNSPECIFIED Status: Acute Comment: H/H stable. (2) Ischemic colitis, enteritis, or enterocolitis Code(s): K55.9 - VASCULAR DISORDER OF INTESTINE, UNSPECIFIED Status: Suspected (3) H/O Sjogren's disease Code(s): Z87.39 - PERSONAL HISTORY OF DISEASES OF THE MS SYS AND CONN TISS Status: Acute (4) H/O Hodgkin's lymphoma Code(s): Z85.71 - PERSONAL HISTORY OF HODGKIN LYMPHOMA Status: Chronic (5) H/O adrenal insufficiency Code(s): Z86.39 - PERSONAL HISTORY OF ENDO, NUTRITIONAL AND METABOLIC DISEASE Status: Chronic Comment: on prednisone (6) History of pulmonary embolus (PE) Code(s): Z86.711 - PERSONAL HISTORY OF PULMONARY EMBOLISM Status: Chronic Comment: prior ivc filter (7) Systemic lupus erythematosus Code(s): M32.9 - SYSTEMIC LUPUS ERYTHEMATOSUS, UNSPECIFIED Status: Chronic (8) Dehydration Code(s): E86.0 - DEHYDRATION Status: Resolved - Plan out of bed/ambulate, DVT proph w/SCDs No more bleed.H/H stable.BP improved.cont Solu-cortef -: Gi following.appreciate input.Colonoscopy soon. -: Tolerating CLD.cont IVF -: am labs * . Review of Systems - Review of Systems Constitutional: negative: Fever, Chills, Sweats, Weakness, Malaise, Other ENT: negative: Ear Pain, Ear Discharge, Nose Pain, Nose Discharge, Nose Congestion, Mouth Pain, Mouth Swelling, Throat Pain, Throat Swelling, Other Respiratory: negative: Cough, Dry, Shortness of Breath, Hemoptysis, SOB with Excertion, Pleuritic Pain, Sputum, Wheezing Cardiovascular: negative: Chest Pain, Palpitations, Orthopnea, Paroxysmal Noc. Dyspnea, Edema, Light Headedness, Other Gastrointestinal: negative: Nausea, Vomiting, Abdominal Pain, Diarrhea, Constipation, Melena, Hematochezia, Other Genitourinary: negative: Dysuria, Frequency, Incontinence, Hematuria, Retention , Other Musculoskeletal: negative: Neck Pain, Shoulder Pain, Arm Pain, Back Pain, Hand Pain, Leg Pain, Foot Pain, Other Neurological: negative: Weakness, Numbness, Incoordination, Change in Speech, Confusion, Seizures, Other - Medications/Allergies Allergies/Adverse Reactions: Allergies Allergy/AdvReac Type Severity Reaction Status Date / Time sulfasalazine Allergy Rash Verified 01/15/16 09:21 tramadol Allergy Hives Verified 01/15/16 09:21 Medications: Current Medications Acetaminophen (Tylenol) 650 mg PO Q4H PRN PRN Reason: Headache/Fever or Pain Calcium Carbonate (Tums) 1,000 mg PO Q4H PRN PRN Reason: Heartburn or Indigestion Hydrocortisone Sodium Succinate (Solu-Cortef) 50 mg IVP Q6H [facility] Last Admin: 05/22/17 09:03 Dose: 50 mg Dextrose/Sodium Chloride (D5 0.9% Ns) 1,000 mls @ 150 mls/hr IV .Q6H40M [facility] Last Admin: 05/22/17 04:10 Dose: 1,000 mls Ondansetron HCl (Zofran Odt) 4 mg PO Q6H PRN PRN Reason: Nausea/Vomiting Ondansetron HCl (Zofran) 4 mg IVP Q6H PRN PRN Reason: Nausea/Vomiting Pantoprazole Sodium (Protonix) 40 mg IVP Q12HR [facility] Last Admin: 05/22/17 09:03 Dose: 40 mg Sodium Chloride (Flush - Normal Saline) 10 ml IVF PRN PRN PRN Reason: Saline Flush Last Admin: 05/22/17 09:03 Dose: 10 ml
[2017-05-22] MEDS ORDERED: GoLYTELY 4,000 ml Bottle PO SCH (14:45)
--- NOTE | 2017-05-23 00:47 | PRG ---
DATE OF SERVICE: 05/22/2017 SUBJECTIVE: Mr. Topete is without complaints. No bleeding today. No abdominal pain. Abdomen is s oft and nontender. OBJECTIVE: VITAL SIGNS: Pulse 63 to 75, temperature is 98 and blood pressure is 134/60. LABORATORY DATA: Hemoglobin 13.5 this morning. ASSESSMENT: Hematochezia with stable hemoglobin. It is unclear if this is bleeding related to acut e diarrhea or perianal irritation or possibly another bout of mild ischemic colitis. PLAN: Colonoscopy tomorrow.
[2017-05-23] MEDS: Dextrose 5 % And 0.9 % NaCl 1,000 ML IV SCH ×2 (03:32→14:28)
[2017-05-23] MEDS: Hydrocortisone Sod Succ/PF 100 mg/2 ml Vial IVP SCH ×3 (03:33→20:57)
[2017-05-23 05:40] LABS: #Lymphocytes 1.6 thou/uL (1.20-3.40); #Monocytes 0.5 thou/uL (0.11-0.59); #Neutrophils 6.1 thou/uL (1.40-6.50); %Basophils 0.2 % (0.0-1.0); %Eosinophils 0.1 % (0.0-10.0); %Lymphocytes 19.7 % (21.0-51.0); %Monocytes 6.5 % (0.0-10.0); Hematocrit 37.3 % (36.0-47.0); Mean Platelet Volume 7.2 fL (7.4-10.4); Red Blood Cell (RBC) Count 3.99 mill/uL (4.20-5.40); White Blood Cell (WBC) Count 8.2 thou/uL (4.8-10.8)
[2017-05-23 06:03] LABS: Anion Gap 11 mmol/L (10-20); BUN (Urea Nitrogen) 9 mg/dL (9.8-20.1); Calc. Creatinine Clearance 114 mL/min (70-130); Calcium 8.2 mg/dL (7.8-10.44); Carbon Dioxide 25 mmol/L (22-29); Chloride 113 mmol/L (98-107); Estimated GFR-MDRD 82
[2017-05-23] MEDS: Pantoprazole 40 MG VIAL IVP SCH ×2 (08:35→20:57)
[2017-05-23] MEDS ORDERED: Propofol 500 MG/50 ML VIAL ONE (11:10)
[2017-05-23] MEDS ORDERED: Propofol 200 MG/20 ML VIAL ONE (11:56)
--- NOTE | 2017-05-23 12:08 | PDOC.PN ---
- Subjective Encounter Start Date: 05/23/17 Encounter Start Time: 12:07 Subjective: feels well.no abdominal pain.no hematochezia w colon prep.no nausea/ vomitin - Objective Resuscitation Status: Resuscitation Status FULL:Full Resuscitation MAR Reviewed: Yes Vital Signs & Weight: Vital Signs (12 hours) Temp Pulse Resp BP BP BP Pulse Ox 05/23/17 11:02 96 05/23/17 08:50 97.9 F 54 L 18 97 05/23/17 07:40 97.9 F 54 L 18 152/75 H 97 05/23/17 05:27 147/59 H 139/67 152/72 H 05/23/17 04:00 97.7 F 56 L 18 146/67 H 96 05/23/17 01:05 94 L Weight Weight 191 lb 1.6 oz I&O: 05/22/17 05/23/17 05/24/17 06:59 06:59 06:59 Intake Total 4340 8014 Output Total 2250 2250 Balance 2090 5764 Result Diagrams: 05/23/17 05:05 05/23/17 05:04 Additional Labs: Microbiology 05/22/17 20:15 Stool - Loose Rapid Parasite Screen - Final 05/22/17 20:15 Stool - Loose Escherichia coli 0157 Culture - Final 05/22/17 20:15 Stool - Loose Campylobacter Antigen Assay - Final 05/22/17 20:15 Stool - Loose Shiga Toxin Test - Final 05/22/17 20:15 Stool - Loose C. difficile GDH Antigen & Toxins - Final 05/21/17 11:24 Stool - Pending Stool Occult Blood (RAY) - Final Laboratory Tests 05/21/17 05/21/17 05/22/17 11:02 11:02 04:20 Plt Count 148 Creatinine 1.19 H 0.78 05/22/17 05/23/17 05/23/17 04:20 05:04 05:05 Plt Count 148 126 L Creatinine 0.73 Phys Exam - Physical Examination Constitutional: NAD HEENT: PERRLA, moist MMs, sclera anicteric, oral pharynx no lesions Neck: no nodes, no JVD, supple, full ROM Respiratory: no wheezing, no rales, no rhonchi, clear to auscultation bilateral Cardiovascular: RRR, no significant murmur Gastrointestinal: soft, non-tender, no distention, positive bowel sounds Musculoskeletal: no edema, pulses present Neurological: non-focal, normal sensation, moves all 4 limbs Psychiatric: normal affect, A&O x 3 Skin: no rash Dx/Plan (1) Acute GI bleeding Code(s): K92.2 - GASTROINTESTINAL HEMORRHAGE, UNSPECIFIED Status: Acute Comment: H/H stable. (2) Ischemic colitis, enteritis, or enterocolitis Code(s): K55.9 - VASCULAR DISORDER OF INTESTINE, UNSPECIFIED Status: Suspected (3) H/O Sjogren's disease Code(s): Z87.39 - PERSONAL HISTORY OF DISEASES OF THE MS SYS AND CONN TISS Status: Acute (4) H/O Hodgkin's lymphoma Code(s): Z85.71 - PERSONAL HISTORY OF HODGKIN LYMPHOMA Status: Chronic (5) H/O adrenal insufficiency Code(s): Z86.39 - PERSONAL HISTORY OF ENDO, NUTRITIONAL AND METABOLIC DISEASE Status: Chronic Comment: on prednisone (6) History of pulmonary embolus (PE) Code(s): Z86.711 - PERSONAL HISTORY OF PULMONARY EMBOLISM Status: Chronic Comment: prior ivc filter (7) Systemic lupus erythematosus Code(s): M32.9 - SYSTEMIC LUPUS ERYTHEMATOSUS, UNSPECIFIED Status: Chronic (8) Dehydration Code(s): E86.0 - DEHYDRATION Status: Resolved - Plan DVT proph w/SCDs colonoscopy today.hemodynamically improved. -: will taper down steroids.cont IVF till pot colonoscopy. -: GI following. -: stool studies negative * . Review of Systems - Review of Systems Constitutional: negative: Fever, Chills, Sweats, Weakness, Malaise, Other Respiratory: negative: Cough, Dry, Shortness of Breath, Hemoptysis, SOB with Excertion, Pleuritic Pain, Sputum, Wheezing Cardiovascular: negative: Chest Pain, Palpitations, Orthopnea, Paroxysmal Noc. Dyspnea, Edema, Light Headedness, Other Gastrointestinal: negative: Nausea, Vomiting, Abdominal Pain, Diarrhea, Constipation, Melena, Hematochezia, Other Genitourinary: negative: Dysuria, Frequency, Incontinence, Hematuria, Retention , Other Musculoskeletal: negative: Neck Pain, Shoulder Pain, Arm Pain, Back Pain, Hand Pain, Leg Pain, Foot Pain, Other Neurological: negative: Weakness, Numbness, Incoordination, Change in Speech, Confusion, Seizures, Other - Medications/Allergies Allergies/Adverse Reactions: Allergies Allergy/AdvReac Type Severity Reaction Status Date / Time sulfasalazine Allergy Rash Verified 01/15/16 09:21 tramadol Allergy Hives Verified 01/15/16 09:21 Medications: Current Medications Acetaminophen (Tylenol) 650 mg PO Q4H PRN PRN Reason: Headache/Fever or Pain Calcium Carbonate (Tums) 1,000 mg PO Q4H PRN PRN Reason: Heartburn or Indigestion Hydrocortisone Sodium Succinate (Solu-Cortef) 50 mg IVP Q12HR [facility] Last Admin: 05/23/17 08:36 Dose: 50 mg Dextrose/Sodium Chloride (D5 0.9% Ns) 1,000 mls @ 150 mls/hr IV .Q6H40M [facility] Last Admin: 05/23/17 03:32 Dose: 1,000 mls Ondansetron HCl (Zofran Odt) 4 mg PO Q6H PRN PRN Reason: Nausea/Vomiting Ondansetron HCl (Zofran) 4 mg IVP Q6H PRN PRN Reason: Nausea/Vomiting Pantoprazole Sodium (Protonix) 40 mg IVP Q12HR [facility] Last Admin: 05/23/17 08:35 Dose: 40 mg Sodium Chloride (Flush - Normal Saline) 10 ml IVF PRN PRN PRN Reason: Saline Flush Last Admin: 05/23/17 08:35 Dose: 10 ml
[2017-05-23] MEDS ORDERED: Ondansetron HCl/PF 4 MG/2 ML Vial IVP PRN (12:16)
[2017-05-23] MEDS ORDERED: Promethazine HCl 25 MG/ML VIAL SLOW IVP PRN (12:16)
[2017-05-23] MEDS ORDERED: Promethazine HCl 25 MG/ML VIAL IM PRN (12:16)
[2017-05-23] MEDS ORDERED: Atropine Sulfate 0.4 mg/1 ml Vial IVP PRN (13:34)
--- NOTE | 2017-05-23 18:33 | OP ---
DATE OF PROCEDURE: 05/23/2017 PREOPERATIVE DIAGNOSES: 1. Recent episode of what was felt to be ischemic colitis about a month ago. 2. The patient re-admitted with some diarrhea and rectal bleeding. POSTOPERATIVE DIAGNOSES: 1. Chronic changes of ischemic colitis at the splenic flexure, biopsied. 2. Changes of acute ischemic colitis in the sigmoid descending colon, biopsied, [id number], n o active bleeding. 3. Otherwise, normal colonoscopy and ileum. RECOMMENDATIONS: 1. Stay well hydrated. 2. Avoid hypotension, may be reasonable to consider adjusting her blood pressure medicines. 3. Avoid decongestant-antihistamine combinations. ANESTHESIA: TIVA. PROCEDURE IN DETAIL: After the patient was informed of the risks, benefits, possible complications of endoscopy including perforation, bleeding, reactions to medication and aspiration, informed conse nt was obtained. The patient was brought to endoscopy suite where she was sedated in a gradual fash ion. Once she was comfortable, the rectal examination was performed. The endoscope was advanced th rough anal canal through the colon to cecum, which was identified by ileocecal valve and appendiceal orifice. The the endoscope was advanced through the colon through to sigmoid and to the right colo n and the terminal ileum was entered and found to be normal. The scope was then slowly removed. Th e right ileum, right colon, and transverse colon are all normal. There were changes of atrophy and mild erythema, some mild areas of submucosal hemorrhage at the splenic flexure consistent with chron ic ischemic colitis. Biopsies were obtained. The descending colon appeared normal. In the proxima l sigmoid and mid sigmoid, there was submucosal hemorrhage, some erosion, and scarring on the antime senteric border of the bowel and appearance very consistent with ischemic colitis. Biopsies were ta catracho from here too. The rectum was normal. Retroflexed views were normal. The scope was removed. The patient tolerated the procedure well with no complications.
[2017-05-24] MEDS ORDERED: predniSONE 20 MG TAB PO SCH (08:00)
[2017-05-24] MEDS: Pantoprazole 40 MG VIAL IVP SCH (08:51)
--- NOTE | 2017-05-24 10:06 | PDOC.PN ---
- Subjective Encounter Start Date: 05/24/17 Encounter Start Time: 10:04 Subjective: feels well. no dizziness/chest discomfort/SOB -: no AP/hematochezia/melena - Objective Resuscitation Status: Resuscitation Status FULL:Full Resuscitation MAR Reviewed: Yes Vital Signs & Weight: Vital Signs (12 hours) Temp Pulse Resp BP Pulse Ox 05/24/17 08:00 98.6 F 55 L 20 148/70 H 96 05/24/17 04:20 97.9 F 53 L 16 140/72 95 Weight Weight 188 lb 14.4 oz I&O: 05/23/17 05/24/17 05/25/17 06:59 06:59 06:59 Intake Total 8014 1670 Output Total 2250 1750 Balance 5764 -80 Result Diagrams: 05/23/17 05:05 05/23/17 05:04 Additional Labs: Microbiology 05/22/17 20:15 Stool - Loose Rapid Parasite Screen - Final 05/22/17 20:15 Stool - Loose Escherichia coli 0157 Culture - Final 05/22/17 20:15 Stool - Loose Campylobacter Antigen Assay - Final 05/22/17 20:15 Stool - Loose Shiga Toxin Test - Final 05/22/17 20:15 Stool - Loose C. difficile GDH Antigen & Toxins - Final 05/21/17 11:24 Stool - Pending Stool Occult Blood (RAY) - Final 05/22/17 20:15 Stool - Loose Stool Culture - Preliminary Phys Exam - Physical Examination Constitutional: NAD HEENT: PERRLA, moist MMs, sclera anicteric, oral pharynx no lesions Neck: no nodes, no JVD, supple, full ROM Respiratory: no wheezing, no rales, no rhonchi, clear to auscultation bilateral Cardiovascular: RRR, no significant murmur, no rub, gallop Gastrointestinal: soft, non-tender, no distention, positive bowel sounds Musculoskeletal: no edema, pulses present Neurological: non-focal, normal sensation, moves all 4 limbs Psychiatric: normal affect, A&O x 3 Skin: no rash Dx/Plan (1) Acute GI bleeding Code(s): K92.2 - GASTROINTESTINAL HEMORRHAGE, UNSPECIFIED Status: Resolved Comment: H/H stable. (2) Ischemic colitis, enteritis, or enterocolitis Code(s): K55.9 - VASCULAR DISORDER OF INTESTINE, UNSPECIFIED Status: Suspected Comment: s/p colonoscopy w biopsies (3) H/O Sjogren's disease Code(s): Z87.39 - PERSONAL HISTORY OF DISEASES OF THE MS SYS AND CONN TISS Status: Acute (4) H/O Hodgkin's lymphoma Code(s): Z85.71 - PERSONAL HISTORY OF HODGKIN LYMPHOMA Status: Chronic (5) H/O adrenal insufficiency Code(s): Z86.39 - PERSONAL HISTORY OF ENDO, NUTRITIONAL AND METABOLIC DISEASE Status: Chronic Comment: on prednisone (6) History of pulmonary embolus (PE) Code(s): Z86.711 - PERSONAL HISTORY OF PULMONARY EMBOLISM Status: Chronic Comment: prior ivc filter (7) Systemic lupus erythematosus Code(s): M32.9 - SYSTEMIC LUPUS ERYTHEMATOSUS, UNSPECIFIED Status: Chronic (8) Dehydration Code(s): E86.0 - DEHYDRATION Status: Resolved (9) Sinus bradycardia Code(s): R00.1 - BRADYCARDIA, UNSPECIFIED Status: Acute - Plan DVT proph w/SCDs hemodynamically stable.Asymptomatic bradycardia.ECHO.Cardiology consult. -: will benefit from event monitor w OP f/u. -: takes Diltiazem at home but none here inpatient. -: advised to stop CCB for now and monitor BP at home. -: taper steroids. * . Review of Systems - Review of Systems Constitutional: negative: Fever, Chills, Sweats, Weakness, Malaise, Other ENT: negative: Ear Pain, Ear Discharge, Nose Pain, Nose Discharge, Nose Congestion, Mouth Pain, Mouth Swelling, Throat Pain, Throat Swelling, Other Respiratory: negative: Cough, Dry, Shortness of Breath, Hemoptysis, SOB with Excertion, Pleuritic Pain, Sputum, Wheezing Cardiovascular: negative: Chest Pain, Palpitations, Orthopnea, Paroxysmal Noc. Dyspnea, Edema, Light Headedness, Other Gastrointestinal: negative: Nausea, Vomiting, Abdominal Pain, Diarrhea, Constipation, Melena, Hematochezia, Other Genitourinary: negative: Dysuria, Frequency, Incontinence, Hematuria, Retention , Other Musculoskeletal: negative: Neck Pain, Shoulder Pain, Arm Pain, Back Pain, Hand Pain, Leg Pain, Foot Pain, Other Neurological: negative: Weakness, Numbness, Incoordination, Change in Speech, Confusion, Seizures, Other - Medications/Allergies Allergies/Adverse Reactions: Allergies Allergy/AdvReac Type Severity Reaction Status Date / Time sulfasalazine Allergy Rash Verified 01/15/16 09:21 tramadol Allergy Hives Verified 01/15/16 09:21 Medications: Current Medications Acetaminophen (Tylenol) 650 mg PO Q4H PRN PRN Reason: Headache/Fever or Pain Atropine Sulfate (Atropine) 0.4 mg IVP ONE PRN PRN Reason: HR<30 Stop: 05/24/17 13:40 Calcium Carbonate (Tums) 1,000 mg PO Q4H PRN PRN Reason: Heartburn or Indigestion Ondansetron HCl (Zofran Odt) 4 mg PO Q6H PRN PRN Reason: Nausea/Vomiting Ondansetron HCl (Zofran) 4 mg IVP Q6H PRN PRN Reason: Nausea/Vomiting Pantoprazole Sodium (Protonix) 40 mg IVP Q12HR [facility] Last Admin: 05/24/17 08:51 Dose: 40 mg Prednisone (Prednisone) 40 mg PO QAM[facility] Last Admin: 05/24/17 08:51 Dose: 40 mg Sodium Chloride (Flush - Normal Saline) 10 ml IVF PRN PRN PRN Reason: Saline Flush Last Admin: 05/24/17 08:52 Dose: 10 ml Sodium Chloride (Flush - Normal Saline) 10 ml IVF Q12HR [facility] Last Admin: 05/24/17 08:51 Dose: 10 ml
[2017-05-24 11:19] VITALS: BP 126/64; TEMP 98
--- NOTE | 2017-05-24 14:29 | PRG ---
DATE OF SERVICE: 05/24/2017 SUBJECTIVE: Ms. Topete had no bleeding. She feels well. She is tolerating diet. She had some iss ues with bradycardia overnight yesterday. OBJECTIVE: VITAL SIGNS: Temperature is 98, pulse is 50 presently, blood pressure 126/84. On admission, her pu lse was in the 60s and 70s, last night it went to low 50s and even low as 47 yesterday afternoon; ho wever, that was after endoscopy. ABDOMEN: Soft and nontender. LABORATORY STUDIES: None today. ASSESSMENT AND PLAN: 1. Rectal bleeding, resolved; ischemic colitis; stable hemoglobin. 2. Bradycardia. It is unclear if she has had an EKG. She did have an echo, it is pending. There is mention of getting Cardiology consult in the Physician's note today and thus probably reasonable as this may be a cause for her to be coming in orthostatic and having recurrent bouts of ischemic co litis. She was on diltiazem at home for her lupus and panniculitis, not for her hypertension, but s he has not been taking that here in the hospital, so I am not sure that would explain her bradycardi a. I have placed a call to the Hospitalist, discussed that with her and I have talked to her primar y physician, Dr. Myers. 3. If EKG has not been obtained, reasonably obtain an EKG to make sure this is sinus bradycardia.
--- NOTE | 2017-05-24 14:30 | DIS ---
DATE OF ADMISSION: 05/21/2017 DATE OF DISCHARGE: 05/24/2017 PRIMARY CARE PHYSICIAN: Dr. May Myers. CONDITION AT THE TIME OF DISCHARGE: Stable and improved. DISCHARGE DIAGNOSES: 1. Ischemic colitis, status post colonoscopy. 2. Sinus bradycardia. 3. Hypotension. 4. Acute gastrointestinal bleed. 5. History of Sjogren disease. 6. History of Hodgkin lymphoma. 7. History of adrenal insufficiency. 8. History of pulmonary embolism, status post IVC filter placement. 9. History of systemic lupus erythematosus. DISCHARGE MEDICATIONS: Resume home medications. The patient did not remember any of her home medic ations, but she did report that she takes diazepam. At this time, she is instructed not to take any antihypertensive and no decongestant or antihistamine combinations. CONSULTATIONS: In-house include Gastroenterology, Dr. Brito. PROCEDURES DONE: Include colonoscopy, which showed chronic changes with ischemic colitis at the spl enic flexure and acute ischemic colitis in the sigmoid and descending colon. Biopsies were taken. No active bleeding was noticed. HISTORY OF PRESENT ILLNESS: Ms. Topete is a very pleasant 57-year-old female with history of PE, is chemic colitis, SLE and Hodgkin lymphoma who presented to the hospital with complaints of bleeding p er rectum. Upon presentation, she gave history of loose stools along with fresh blood and later sivan k sheyla colored stool. In the ER, she was found to be somewhat hypotensive, initially 112/48, but t he lowest blood pressure was noted at 82/38. Her initial hemoglobin was 14.5. She was given IV flu ids along with IV PPIs and IV steroids. She takes chronic steroids. Her Hemoccult stool was positi ve per the ER report. She was admitted with a presumptive diagnosis of lower GI bleeding with suspe cted ischemic colitis. A CT scan done recently showed diverticulosis without any acute findings. N o imaging studies were done at this time. Please see admission history and physical for further det ails. HOSPITAL COURSE: The patient was admitted to the telemetry unit and started on IV Solu-Cortef as we ll as IV fluids and GI was consulted. Serial hemoglobin and hematocrit monitoring was done. Her he moglobin and hematocrit remained stable and she did not require any blood transfusions stated. Dr. Brito saw her and she eventually underwent a colonoscopy, which showed findings consistent with ischemic colitis as suspected at the time of admission. She eventually was tapered off of IV stero ids and IV fluids. She remained hemodynamically stable and was back on regular diet without any epi sodes of hematochezia or melena while in the hospital. Incidental finding with sinus bradycardia for which she underwent an echocardiogram. This bradycard ia was totally asymptomatic. Her heart rate dropped as low as 47 without any symptoms. This was di scussed with Cardiology professional fighter, Dr. Lewis. The patient will go to the clinic to get an event monito r. Her echocardiogram results will be discussed between herself and her primary care physician as leo gregory as the pulling unit floorhand, Dr. Lewis. The patient was instructed with regards to diet and understood t he discharge plan. On the day of discharge, she is cleared for discharge by Gastroenterology. She was seen and examine d prior to discharge. Please see hospitalist progress note from today's date for further detail inc luding [id number] interaction. Total time spent in the discharge 32 minutes.
== END 2017-05-24 13:46 | disposition home or self-care (01) | DRG 394 ==
LOC: SCSER 10:33 → 2NO 13:08
PROVIDERS: ADMIT Internal Medicine; ATTEND Internal Medicine
PROC: 0DBN8ZX Excision of Sigmoid Colon, Via Natural or Artificial Opening Endoscopic, Diagnostic (ICD-10-PCS; principal; 2017-05-23)
PROC: 0DBL8ZX Excision of Transverse Colon, Via Natural or Artificial Opening Endoscopic, Diagnostic (ICD-10-PCS; 2017-05-23)
DX: K55.9 Vascular disorder of intestine, unspecified (principal); D62 Acute posthemorrhagic anemia; M32.9 Systemic lupus erythematosus, unspecified; M35.00 Sjogren syndrome, unspecified; E86.0 Dehydration; K92.1 Melena; Z79.52 Long term (current) use of systemic steroids; Z92.21 Personal history of antineoplastic chemotherapy; E66.9 Obesity, unspecified; Z68.32 Body mass index [BMI] 32.0-32.9, adult; Z98.84 Bariatric surgery status; N18.2 Chronic kidney disease, stage 2 (mild); Z86.711 Personal history of pulmonary embolism; F32.9 Major depressive disorder, single episode, unspecified; Z96.641 Presence of right artificial hip joint; Z88.2 Allergy status to sulfonamides; Z87.891 Personal history of nicotine dependence; I95.1 Orthostatic hypotension; M19.90 Unspecified osteoarthritis, unspecified site; R00.1 Bradycardia, unspecified; K57.90 Diverticulosis of intestine, part unspecified, without perforation or abscess without bleeding; Z85.71 Personal history of Hodgkin lymphoma
CPT/HCPCS: 36415; 80048; 80053; 82274; 82728; 83540; 83550; 83735; 84100; 84484; 85025; 85046; 85610; 85730; 86850; 86900; 86901; 87015; 87045; 87046; 87324; 87328; 87329; 87449; 87899; 88305; 93005; 93306; 94760; 96361; 96374; 96375; A4216; C9113; J1720; J2405; J2704; J2920; J7506

== ENCOUNTER 2017-06-16 02:37 | Outpatient (CLI) | payer BC ==
[2017-06-16] MEDS ORDERED: Iopamidol 370 76% 100 ML VIAL ONE (09:35)
== END 2017-06-16 02:38 | disposition home or self-care (01) ==
LOC: BICCT 02:37
PROVIDERS: ATTEND Internal Medicine Gastroenterology
DX: K55.9 Vascular disorder of intestine, unspecified (principal)
CPT/HCPCS: 74174

== ENCOUNTER 2017-08-11 13:33 | Outpatient (CLI) | payer BC | END 2017-08-11 13:34 | disposition home or self-care (01) | LOC: BICMRI 13:33 | PROVIDERS: ATTEND Specialist | DX: M47.22 Other spondylosis with radiculopathy, cervical region (principal) | CPT/HCPCS: 72141 ==

== ENCOUNTER 2017-09-18 13:24 | Outpatient (CLI) | payer BC | END 2017-09-18 13:25 | disposition home or self-care (01) | LOC: BICRAD 13:24 | PROVIDERS: ATTEND Internal Medicine | DX: R61 Generalized hyperhidrosis (principal) | CPT/HCPCS: 71046 ==

== ENCOUNTER 2017-09-24 13:59 | Outpatient (CLI) | payer BC ==
--- NOTE | 2017-09-24 15:55 | ULT ---
THYROID SONOGRAM: HISTORY: Thyroid nodule. FINDINGS: The right thyroid lobe is 4.1 cm and left is 3.7 cm. Each has a homogeneous echotexture without foca l mass. Isthmus is 0.3 cm. IMPRESSION: Normal sonographic appearance of the thyroid gland. POS: [facility]
== END 2017-09-24 14:00 | disposition home or self-care (01) ==
LOC: ULT 13:59
PROVIDERS: ATTEND Internal Medicine
DX: E04.1 Nontoxic single thyroid nodule (principal)
CPT/HCPCS: 76536

== ENCOUNTER 2017-10-12 18:39 | Emergency (ER) | payer BC ==
--- NOTE | 2017-10-12 20:07 | RAD ---
LEFT FOOT THREE VIEWS: HISTORY: A 57-year-old female with a history of pain in the left fifth toe after hitting a bed, with swelling. FINDINGS: Postoperative changes noted at the great toe, with what appears to be fusion of the interphalangeal j oint of the great toe, including some wire suture. Degenerative changes are noted. Prominent vascul ar calcifications. There is a slightly comminuted, chip type fracture involving the medial aspect of the base of the proximal phalanx of the fifth toe. IMPRESSION: Slightly comminuted chip type fracture involving the medial aspect of the base of the proximal phalan x of the fifth toe. Postoperative changes of the first toe. Degenerative changes. Prominent vascul ar calcifications. POS: [facility]
== END 2017-10-12 20:20 | disposition home or self-care (01) ==
LOC: SCSER 18:39
DX: S92.512A Displaced fracture of proximal phalanx of left lesser toe(s), initial encounter for closed fracture (principal); M32.9 Systemic lupus erythematosus, unspecified; M35.00 Sjogren syndrome, unspecified; F41.9 Anxiety disorder, unspecified; F32.9 Major depressive disorder, single episode, unspecified; Z79.52 Long term (current) use of systemic steroids; Z85.72 Personal history of non-Hodgkin lymphomas; Z79.82 Long term (current) use of aspirin; W22.03XA Walked into furniture, initial encounter

== ENCOUNTER 2018-01-21 08:29 | Outpatient (CLI) | payer BC ==
[2018-01-21 10:01] LABS: Bilirubin Negative (Negative); Blood, Urine Negative (Negative); Clarity CLEAR (Clear); Glucose, Urine (Dipstick) Negative (Negative); Leukocyte Negative (Negative); Nitrite Negative (Negative); Protein, Urine (Dipstick) Negative (Neg-Trace); Specific Gravity, Urine 1.028 (1.002-1.036); Urobilinogen 0.2 mg/dL (0.2-1.0); pH, Urine 5.5 (5.0-9.0)
[2018-01-21 10:03] LABS: Bacteria/HPF None Seen HPF (None Seen); Hyaline Casts/LPF 0-3 HYALINE CAST LPF (0-3 Hyaline); Squamous Epithelial None Seen HPF (0-3); WBC/HPF None Seen HPF (0-3)
--- NOTE | 2018-01-21 16:27 | EKG ---
Test Reason : Blood Pressure : / mmHG Vent. Rate : 060 BPM Atrial Rate : 060 BPM P-R Int : 142 ms QRS Dur : 108 ms QT Int : 470 ms P-R-T Axes : -10 052 049 degrees QTc Int : 470 ms Normal sinus rhythm Non-specific intra-ventricular conduction delay Prolonged QT Abnormal ECG Confirmed by JENIFFER TEMPLE ([id number]) on 01/21/2018 4:26:53 PM Referred By: [facility]ICCI Confirmed By:JENIFFER TEMPLE
== END 2018-01-21 08:30 | disposition home or self-care (01) ==
LOC: LABBT 08:29
PROVIDERS: ATTEND Orthopaedic Surgery
DX: Z01.818 Encounter for other preprocedural examination (principal); M17.12 Unilateral primary osteoarthritis, left knee
CPT/HCPCS: 81001; 87081; 93005; 93010

== ENCOUNTER 2018-01-21 08:30 | Inpatient (IN) | payer BC ==
[2018-02-02] MEDS ORDERED: Sodium Chloride 0.9% 100 ML ONE (08:06)
[2018-02-02] MEDS ORDERED: CEFAZOLIN/Water 2 GM/20 ML SYRINGE ONE (08:07)
[2018-02-02] MEDS ORDERED: Vancomycin HCl 1.5 GM in Sodium Chloride 0.9% 250 ML 300 ML IVPB SCH (08:15)
[2018-02-02] MEDS ORDERED: Fentanyl 100 MCG/2 ML VIAL SLOW IVP PRN ×2 (08:45)
[2018-02-02] MEDS ORDERED: diphenhydrAMINE 25 MG CAP PO PRN (08:45)
[2018-02-02] MEDS ORDERED: Acetaminophen 325 MG TAB PO PRN (08:45)
[2018-02-02] MEDS ORDERED: Zolpidem Tartrate 5 MG TAB PO PRN ×2 (08:45→09:52)
[2018-02-02] MEDS ORDERED: Promethazine HCl 25 MG/ML VIAL IM PRN ×3 (08:45→11:29)
[2018-02-02] MEDS ORDERED: Ondansetron HCl/PF 4 MG/2 ML Vial IVP PRN ×2 (08:45→11:29)
[2018-02-02] MEDS ORDERED: Polyethylene Glycol 3350 17 GM Packet PO PRN (08:47)
[2018-02-02] MEDS ORDERED: Lorazepam 1 MG TAB PO PRN (08:47)
[2018-02-02] MEDS ORDERED: Ondansetron ODT 4 MG TAB PO PRN (08:47)
[2018-02-02] MEDS ORDERED: Midazolam HCl 2 mg/2 ml Vial ONE (08:55)
[2018-02-02] MEDS ORDERED: [UNRECOGNIZED DRUG - OTHER] PO SCH (09:00)
[2018-02-02] MEDS ORDERED: Non-Formulary Item 1 EACH (Prednisone [Prednisone] 10 MG) PO SCH (09:00)
[2018-02-02] MEDS ORDERED: MYCOPHENOLATE MOFETIL 500 MG PO SCH (09:00)
[2018-02-02] MEDS ORDERED: Non-Formulary Item 1 EACH (Omeprazole [Omeprazole] 20 MG) PO SCH (09:00)
[2018-02-02] MEDS ORDERED: IRON PO SCH (09:00)
[2018-02-02] MEDS ORDERED: PRENATAL VIT CALC76 PO SCH (09:00)
[2018-02-02] MEDS ORDERED: FOLIC PO SCH (09:00)
[2018-02-02] MEDS ORDERED: Non-Formulary Item 1 EACH (Pregabalin [Lyrica] 150 MG) PO SCH (09:00)
[2018-02-02] MEDS ORDERED: Non-Formulary Item 1 EACH (Bupropion Hcl [Bupropion Hcl Xl] 300 MG) PO SCH (09:00)
[2018-02-02] MEDS ORDERED: Non-Formulary Item 1 EACH (Cholecalciferol (Vitamin D3) [Vitamin D3] 5,000 UNIT) PO SCH (09:00)
[2018-02-02] MEDS ORDERED: Ropivacaine HCl/PF 250 ML in Premix Bag 1 BAG NERVE BLCK SCH (09:52)
[2018-02-02] MEDS ORDERED: HYDROcodone/Acetaminophen 10/325 mg Tablet PO PRN (09:52)
[2018-02-02] MEDS ORDERED: Fentanyl 100 MCG/2 ML VIAL IV PRN (09:53)
[2018-02-02] MEDS ORDERED: Scopolamine 1.5 mg/72 hour Patch ONE (10:19)
[2018-02-02] MEDS ORDERED: Fentanyl 100 MCG/2 ML VIAL ONE ×3 (10:55→13:43)
[2018-02-02] MEDS ORDERED: Promethazine HCl 25 MG/ML VIAL SLOW IVP PRN (11:29)
[2018-02-02] MEDS ORDERED: Ondansetron HCl/PF 4 MG/2 ML Vial ONE (12:05)
[2018-02-02] MEDS ORDERED: Bupivacaine 0.25% HCL 30 ML VIAL ONE (12:34)
[2018-02-02] MEDS ORDERED: Ropivacaine 0.5% HCl/PF (150 MG/30 ML VIAL) ONE (12:34)
[2018-02-02] MEDS ORDERED: PROPOFOL 200 MG/20 ML VIAL ONE (12:49)
[2018-02-02] MEDS ORDERED: Lidocaine 1% PF 5 ML VIAL ONE (12:49)
[2018-02-02] MEDS ORDERED: Hydrocortisone Sod Succ/PF 100 mg/2 ml Vial ONE (12:49)
[2018-02-02] MEDS ORDERED: HYDROmorphone 0.5 MG/0.5 ML SYRINGE ONE (13:15)
--- NOTE | 2018-02-02 13:23 | RAD ---
TWO VIEWS LEFT KNEE: 02/02/2018 HISTORY: Total knee postoperative change. FINDINGS: Post surgical changes related to a left total knee prosthesis are noted. There is subcutaneous emphy sema and edema about the knee related to recent post surgical change. Vascular calcification is seen posterior to the knee. IMPRESSION: Post surgical changes related to recent left total knee prosthesis. POS: [facility]
[2018-02-02] MEDS ORDERED: CEFAZOLIN/Water 2 GM/20 ML SYRINGE SLOW IVP SCH (16:00)
[2018-02-02] MEDS: HYDROcodone/Acetaminophen 10/325 mg Tablet PO PRN ×2 (16:17→21:14)
[2018-02-02] MEDS: Ondansetron HCl/PF 4 MG/2 ML Vial IVP PRN ×2 (16:17→21:12)
[2018-02-02 16:49] VITALS: BMI 31.6
--- NOTE | 2018-02-02 16:58 | OP ---
DATE OF PROCEDURE: 02/02/2018 PREOPERATIVE DIAGNOSIS: Left knee degenerative joint disease. POSTOPERATIVE DIAGNOSIS: Left knee degenerative joint disease. SURGEON: Abraham Gomez M.D. CIVIL ENGINEERING PROFESSIONAL: Les Fajardo PA-C. BLOOD LOSS: Minimal. SPECIMEN: None. DRAINS: None. COMPLICATIONS: None. TITLE OF PROCEDURE: Left total knee arthroplasty using [employer] 3 femur, 3 tibia, 9 mm CSX3 polyethylene, and A29 patella. PROCEDURE IN DETAIL: After informed consent was obtained in the preoperative holding area. The stewart ent was taken to the operative suite where general anesthesia was induced. Once adequate level of ge neral anesthesia was obtained, the patient was positioned and a well-padded tourniquet was placed lupe und the left proximal thigh. The left lower extremity was then prepped and draped in the usual steri le fashion. Prior to exsanguination, a time out was called and all members of the surgical team agre ed upon site, surgeon, and patient. The extremity was then exsanguinated and the tourniquet was rais ed. A midline longitudinal incision was then made directly over the patella extending two fingerbrea dths above the superior pole of the patella and two fingerbreadths inferior to the inferior patellar pole of the patella. Deeper subcutaneous layers were dissected sharply and local bleeding was contro lled with Bovie electrocautery. A quad tendon longitudinal split was then made sharply and a median parapatellar arthrotomy was carried out both sharp and with Bovie electrocautery, carried down to one fingerbreadth medial to the tibial tubercle. The knee was then placed into flexion and the patella was everted nicely, and a copious fat pad ectomy was performed allowing for greater exposure of the t ibia. The computer-assisted distal femoral fiducial was then placed and pinned firmly, and the dista l femoral cutting guide was pinned firmly into place. The oscillating saw was then used to remove th e appropriate amount of bone. The 4-in-1 cutting block was then placed on the distal femur and the o scillating saw was used to remove the appropriate amount of bone off of the anterior, posterior, and chamfer cuts. After completion of bone cuts, the anterior cruciate ligament was resected sharply and the posterior cruciate ligament retractor was placed and the tibia was subluxed for better exposure. Partial meniscectomies were carried out, and the tibial computer-assisted fiducial was pinned, and the cutting guide was placed. Oscillating saw was then used to remove the bone with Hohmann retracto rs used to take care and protect the collateral ligaments. After the tibial resection was performed, a laminar insurance verification rep was placed in between the freshened bone cuts. The knee placed at 90 degrees and further bilateral meniscectomies were carried out, and the curved osteotome and curettage was used t o remove any excess bone spurs in the posterior compartment. The trial femoral component, tibial bas eplate were placed with the appropriate polyethylene trial insert with an appropriate polyethylene sp acer and patellar button. The knee was taken through full range of motion with flexion and extension from 0-90 degrees and patellar broach squarely in the trochlea without any squinting or subluxation noted. The knee was also stable to varus and valgus stressing at 0, 15, 45, and 90 degrees of flexio n. The drawer was negative. All trial components were then removed and the keel punch was used to pr ovide the appropriate defect in the tibia with a mallet. The freshened bone cuts were copiously irri gated with pulsatile lavage of about 1-1/2 liters to remove all excess debris. The freshened bone cu ts were then dried and with suction and lap sponge. The knee was placed in flexion and retractors we re placed to provide access to all bone cuts. Tobramycin impregnated methyl methacrylate cement was then placed on the freshened bone cuts and implants which were malleted firmly into place. Curettage and [place] elevators were used to remove any excess bone cement. The knee was placed into full exten carlos and the patellar button was placed under compression, and the cement was allowed to cure. Once completed, the components were again taken through full range of motion and copious irrigation of the knee was carried out with another liter of normal saline. All components were inspected fully with full range of motion and varus and valgus stressing. There was no laxity noted and full extension was observed clinically. Primary closure was accomplished with #2 interrupted Vicryl stitch of the arth rotomy defect. This was oversewn with a #2 running Quill barbed stitch. The gravitational platelet system was then injected into the arthrotomy prior to closure. The subcutaneous layer was then close d with a running 0 barbed Monocryl stitch and skin closure accomplished with a running subcuticular 3 -0 Monocryl barbed Quill stitch and augmented with cement on the skin. Tourniquet was lowered. Good spontaneous return of distal pulses was noted clinically and a sterile dressing was applied to the i ncision. The procedure was terminated without any complications. The patient was awakened in the op erative suite and the tourniquet was removed, and the patient was taken to the recovery room in stabl e condition.
[2018-02-02] MEDS: Sodium Chloride 0.9% 1,000 ML IV SCH ×2 (18:06→23:50)
[2018-02-02] MEDS: Aspirin 81 mg Enteric Coated Tablet PO SCH ×2 (18:06→20:44)
[2018-02-02] MEDS: Aripiprazole 2 MG TAB PO SCH (18:06)
[2018-02-02] MEDS: Enoxaparin Sodium 30 MG/0.3 ML SYRINGE SC SCH (18:08)
[2018-02-02] MEDS: Ferrous Gluconate 324 MG TAB PO SCH ×2 (18:09→20:44)
[2018-02-02] MEDS: Senokot S 8.6-50 MG TAB PO SCH ×2 (18:10→20:42)
[2018-02-02] MEDS: Multivitamin W/ Minerals 1 TAB PO SCH (18:10)
[2018-02-02] MEDS: Hydroxychloroquine Sulfate 200 MG TAB PO SCH ×2 (18:10→20:40)
[2018-02-02] MEDS: CEFAZOLIN/Water 2 GM/20 ML SYRINGE SLOW IVP SCH (18:48)
[2018-02-02] MEDS: Pregabalin 75 MG CAP PO SCH (20:38)
[2018-02-02] MEDS: Mycophenolate 250 MG CAP PO SCH (20:42)
[2018-02-02] MEDS ORDERED: VORTIOXETINE HYDROBROMIDE 20 MG PO SCH (21:00)
[2018-02-03] MEDS: CEFAZOLIN/Water 2 GM/20 ML SYRINGE SLOW IVP SCH (01:23)
[2018-02-03 04:46] LABS: Hemoglobin 12.1 g/dL (12.0-16.0); Mean Corpuscular HGB CONC 33.1 g/dL (32.0-36.0); Mean Corpuscular Hemoglobin 30.7 pg (27.0-31.0); Mean Corpuscular Volume 92.8 fL (78.0-98.0); Platelet Count 139 thou/uL (130-400); RBC Distribution Width 11.6 % (11.5-14.5); Red Blood Cell (RBC) Count 3.95 mill/uL (4.20-5.40)
[2018-02-03] MEDS: Sodium Chloride 0.9% 1,000 ML IV SCH ×2 (05:00→12:07)
[2018-02-03] MEDS: HYDROcodone/Acetaminophen 10/325 mg Tablet PO PRN ×3 (08:43→19:26)
[2018-02-03] MEDS: Multivitamin W/ Minerals 1 TAB PO SCH (08:45)
[2018-02-03] MEDS: Pregabalin 75 MG CAP PO SCH ×2 (08:45→20:42)
[2018-02-03] MEDS: Prenatal Vitamin 1 TAB PO SCH (08:45)
[2018-02-03] MEDS: Senokot S 8.6-50 MG TAB PO SCH ×2 (08:46→20:40)
[2018-02-03] MEDS: predniSONE 5 MG TAB PO SCH (08:46)
[2018-02-03] MEDS: Bupropion 150 MG XL TAB PO SCH (08:46)
[2018-02-03] MEDS: Aspirin 81 mg Enteric Coated Tablet PO SCH ×2 (08:46→20:42)
[2018-02-03] MEDS: Ferrous Gluconate 324 MG TAB PO SCH ×2 (08:47→20:39)
[2018-02-03] MEDS: Enoxaparin Sodium 30 MG/0.3 ML SYRINGE SC SCH (08:48)
[2018-02-03] MEDS: Hydroxychloroquine Sulfate 200 MG TAB PO SCH ×2 (08:48→20:41)
[2018-02-03] MEDS: Mycophenolate 250 MG CAP PO SCH ×2 (08:48→20:42)
--- NOTE | 2018-02-03 09:14 | HP ---
PRIMARY CARE PROVIDER: May Myers M.D. Referred for medical management consultation by Dr. Abraham Gomez. Patient is postop left total knee replacement for degenerative joint disease. The patient had some nausea and vomiting during the h t. She is better. She has had no fever or chills. No chest pain, no shortness of breath, no sweats . PAST MEDICAL HISTORY: Pertinent for systemic lupus erythematous for years. She has a history of DVT s. She was treated for Hodgkin's lymphoma in 2009 with chemotherapy. She had an upper GI bleed last year, related to medications. She has a panniculitis. CURRENT MEDICATIONS: Prednisone 10 mg a day, bupropion 300 mg a day, Trintellix 20 mg at bedtime, Ly polo 150 mg p.o. b.i.d., omeprazole 20 mg a day, Plaquenil 400 mg twice a day, Abilify 2 mg a day, my cophenolate mofetil 500 mg twice a day, Cartia 120 mg a day, aspirin 81 mg a day, MiraLax 17 grams in water daily p.r.n., hydrocodone 10/325 one every 4 hours as needed for pain, lorazepam 1 mg every 6 hours as needed for pain, Zofran 4 mg every 6 hours as needed for nausea. ALLERGIES: She is allergic to SEPTRA and TRAMADOL. She has hives with both. PAST SURGICAL HISTORY: Appendectomy, cholecystectomy, bilateral cataract replacements, bariatric estefania radha, right hip replacement. FAMILY HISTORY: Multiple members have cancer. Her mother and her mother's twin sister have breast c ancer on her father's side. There are multiple members with colon cancer and lung cancer and multipl e members with hemochromatosis. SOCIAL HISTORY: The patient is single. FULL CODE status. No tobacco. She drinks a glass of wine w ith dinner every evening. REVIEW OF SYSTEMS: General: No dizziness or fainting. EYES: No double vision, blurred vision, or flashing light. Ears, Nose, and Throat: No ear pain or drainage. No nasal bleeding. No trouble sw allowing. Cardiac: No chest pain, orthopnea, or paroxysmal nocturnal dyspnea. Respirations: No co ugh, wheezing, or asthma. Gastrointestinal: No nausea, vomiting, diarrhea, or constipation. Genito urinary: No hematuria or dysuria. Musculoskeletal: She has had severe pain in her knee. She has c hronic pains, for which she takes multiple medicines. Psychiatric: She is on antidepressant medicat ions. Neurologic: No strokes, seizures, or focal weakness. Skin: Bruises easily. No rash. Heme/ Lymph: She has occasional swollen lymph nodes in the posterior neck that are related to coming and g oing of her lupus. PHYSICAL EXAMINATION: VITAL SIGNS: Pulse 54, respirations 16, blood pressure 108/64, temperature 97.9. GENERAL: Alert, oriented, cooperative, pleasant. HEENT: Examination of her head, eyes, ears, nose, and throat reveal pupils equal and round with impl ants. Extraocular movements are intact. Sclerae white. Tympanic membranes are clear. Nose is madisyn r. Oral mucous membranes are wet. NECK: Supple, without jugular venous distention, adenopathy, or thyromegaly. CHEST: Clear to auscultation and percussion. HEART: Had a regular rate and rhythm. First and second heart sounds are clear. No appreciated murm urs or gallops. ABDOMEN: Soft, bowel sounds are normal. There is no hepatosplenomegaly, no mass, no rebound, no bru its. EXTREMITIES: Reveal no cyanosis, clubbing, or edema. Her left knee is bandaged. PULSES: Carotid, radial, femoral, and dorsalis pedis pulses intact. SKIN: Warm and dry without bruises or rash. HEME/LYMPH: No tender or swollen lymph nodes in axilla, inguinal, or cervical area. NEUROLOGICAL: Cranial nerves II-XII are intact. Moves all extremities. Toes downgoing. LABORATORY AND X-RAY FINDINGS: Hemoglobin 12.1, white count 7.0, platelet count 139,000. EKG reveal s normal sinus rhythm, borderline bradycardia, QRS is mildly widened, no evidence of a bundle branch block. Otherwise, no [id number] changes of note. ADMITTING DIAGNOSES: 1. Status post left total knee replacement for degenerative arthritis. 2. Systemic lupus erythematosus, on multiple medicines. 3. Panniculitis, on diltiazem. 4. Hodgkin's disease, treated in 2009. 5. History of deep vein thrombosis. 6. Sinus bradycardia. PLAN: Continue home medicines. We will follow with you. The patient is doing well postop.
[2018-02-03] MEDS: Aripiprazole 2 MG TAB PO SCH (10:43)
[2018-02-04] MEDS: Sodium Chloride 0.9% 1,000 ML IV SCH ×2 (00:22→11:00)
[2018-02-04 05:32] LABS: Hemoglobin 11.8 g/dL (12.0-16.0); Mean Corpuscular HGB CONC 33.3 g/dL (32.0-36.0); Mean Corpuscular Hemoglobin 30.8 pg (27.0-31.0); Mean Corpuscular Volume 92.4 fL (78.0-98.0); Mean Platelet Volume 6.9 fL (7.4-10.4); Platelet Count 125 thou/uL (130-400); RBC Distribution Width 11.6 % (11.5-14.5); Red Blood Cell (RBC) Count 3.84 mill/uL (4.20-5.40); White Blood Cell (WBC) Count 7.2 thou/uL (4.8-10.8)
--- NOTE | 2018-02-04 07:55 | PRG ---
DATE OF SERVICE: 02/03/2018 SUBJECTIVE: Maddie is a 57-year-old female who is postop day #1 from a left total knee arthroplast y. She is doing very well. She has no complaints. She is comfortable. OBJECTIVE: GENERAL: She is sitting comfortably in the bed. VITAL SIGNS: Temperature 97.9, pulse 60, respiratory rate 16, O2 saturation 98% on room air, blood p ressure is 108/64. . GENERAL: She is alert and oriented to person, place, time, and situation. Grossly nonfocal. EXTREMITIES: Visual inspection of left lower extremity demonstrates to have no strike through, incis ion is clean and closed. She is neurovascularly intact. She has a dense block noted. ASSESSMENT: A 57-year-old female postop day #1 left total knee arthroplasty, doing well. PLAN: Begin Lovenox for DVT prophylaxis. Discharge tomorrow.
[2018-02-04] MEDS: Pregabalin 75 MG CAP PO SCH (09:36)
[2018-02-04] MEDS: Bupropion 150 MG XL TAB PO SCH (09:37)
[2018-02-04] MEDS: Mycophenolate 250 MG CAP PO SCH (09:39)
[2018-02-04] MEDS: predniSONE 5 MG TAB PO SCH (09:41)
[2018-02-04] MEDS: Senokot S 8.6-50 MG TAB PO SCH (09:42)
[2018-02-04] MEDS: Enoxaparin Sodium 30 MG/0.3 ML SYRINGE SC SCH (09:43)
[2018-02-04] MEDS: Hydroxychloroquine Sulfate 200 MG TAB PO SCH (09:43)
[2018-02-04] MEDS: Aspirin 81 mg Enteric Coated Tablet PO SCH (09:43)
[2018-02-04] MEDS: Aripiprazole 2 MG TAB PO SCH (09:47)
[2018-02-04] MEDS: Ondansetron HCl/PF 4 MG/2 ML Vial IVP PRN (09:48)
[2018-02-04] MEDS: Multivitamin W/ Minerals 1 TAB PO SCH (09:55)
[2018-02-04] MEDS: Ferrous Gluconate 324 MG TAB PO SCH (09:55)
[2018-02-04] MEDS: Prenatal Vitamin 1 TAB PO SCH (09:56)
[2018-02-04 12:21] VITALS: BP 116/66
[2018-02-04 13:19] VITALS: TEMP 98.5
--- NOTE | 2018-02-04 15:29 | DIS ---
DATE OF ADMISSION: 02/02/2018 DATE OF DISCHARGE: 02/04/2018 TRANSFER OF CARE CONSULTING PHYSICIAN: Abraham Gomez M.D. PRIMARY CARE PROVIDER: May Myers M.D. FINAL DIAGNOSES: Status post left total knee replacement for degenerative arthritis, systemic lupus erythematosus, panniculitis on diltiazem, history of Hodgkin's disease treated in 2009, history of de ep vein thrombosis. DISCHARGE MEDICATIONS: Abilify 2 mg a day, aspirin 81 mg a day, bupropion XL 300 ER 1 a day, choleca lciferol 5000 units p.o. daily, diltiazem 120 mg daily, hydroxychloroquine 200 mg a day, lorazepam 1 tablet q.6 hours p.r.n., mycophenolate mofetil 500 mg twice a day, omeprazole 20 mg a day, prednisone 10 mg a day, pregabalin 150 mg p.o. b.i.d., Trintellix 20 mg a day. ALLERGIES: SULFASALAZINE and TRAMADOL, both cause hives. DISPOSITION: The patient discharged to home. HOSPITAL COURSE: The patient was admitted for elective total knee replacement, underwent left total knee replacement. Sound was consulted for medical management. The patient did well during her hospi trace stay and has been discharged home with followup per Dr. Gomez.
== END 2018-02-04 14:00 | disposition home or self-care (01) | DRG 470 ==
LOC: SURG A 02-02 07:30
PROVIDERS: ADMIT Orthopaedic Surgery; ATTEND Orthopaedic Surgery
PROC: 0SRD0J9 Replacement of Left Knee Joint with Synthetic Substitute, Cemented, Open Approach (ICD-10-PCS; principal; 2018-02-02)
DX: M17.12 Unilateral primary osteoarthritis, left knee (principal); M32.9 Systemic lupus erythematosus, unspecified; M79.3 Panniculitis, unspecified; R00.1 Bradycardia, unspecified; Z79.82 Long term (current) use of aspirin; Z88.2 Allergy status to sulfonamides; Z85.72 Personal history of non-Hodgkin lymphomas; Z86.718 Personal history of other venous thrombosis and embolism; Z96.641 Presence of right artificial hip joint; Z80.3 Family history of malignant neoplasm of breast; Z80.0 Family history of malignant neoplasm of digestive organs; Z80.1 Family history of malignant neoplasm of trachea, bronchus and lung
CPT/HCPCS: 36415; 85027; C1713; C1776; G8978-GP-CM; G8979-GP-CJ; J1170; J1650; J1720; J2001; J2250; J2405; J2704; J2795; J3010; J3370; J7050; J7517; S0020

== ENCOUNTER 2018-01-26 13:50 | Outpatient (CLI) | payer BC ==
[2018-01-26 14:24] LABS: #Lymphocytes 1.1 thou/uL (1.20-3.40); #Monocytes 0.3 thou/uL (0.11-0.59); #Neutrophils 5.3 thou/uL (1.40-6.50); %Basophils 0.7 % (0.0-1.0); %Eosinophils 0.5 % (0.0-10.0); %Monocytes 4.7 % (0.0-10.0); %Neutrophils 78.1 % (42.0-75.0); Hemoglobin 14.4 g/dL (12.0-16.0); Mean Corpuscular HGB CONC 33.3 g/dL (32.0-36.0); Mean Corpuscular Hemoglobin 30.5 pg (27.0-31.0); Mean Corpuscular Volume 91.7 fL (78.0-98.0); Platelet Count 172 thou/uL (130-400); RBC Distribution Width 11.9 % (11.5-14.5); Red Blood Cell (RBC) Count 4.72 mill/uL (4.20-5.40); White Blood Cell (WBC) Count 6.8 thou/uL (4.8-10.8)
[2018-01-26 14:35] LABS: INR-International Normal Ratio 1.1; Prothrombin Time 14.2 SEC (12.0-14.7)
[2018-01-26 14:51] LABS: Anion Gap 12 mmol/L (10-20); BUN (Urea Nitrogen) 25 mg/dL (9.8-20.1); Calc. Creatinine Clearance 0 mL/min (70-130); Calcium 10.1 mg/dL (7.8-10.44); Carbon Dioxide 26 mmol/L (22-29); Chloride 107 mmol/L (98-107); Estimated GFR-MDRD 67; Glucose 101 mg/dL (70-105); Potassium 5.4 mmol/L (3.5-5.1); Sodium 140 mmol/L (136-145)
== END 2018-01-26 13:51 | disposition home or self-care (01) ==
LOC: LABBT 13:50
PROVIDERS: ATTEND Orthopaedic Surgery
DX: Z01.818 Encounter for other preprocedural examination (principal); M17.12 Unilateral primary osteoarthritis, left knee
CPT/HCPCS: 80048; 85025; 85610; 86850; 86900; 86901

== ENCOUNTER 2018-03-26 09:29 | Outpatient (CLI) | payer BC ==
[2018-03-26] MEDS ORDERED: ISOVUE-370 76%-LOCM 1 ML ONE (14:19)
== END 2018-03-26 09:30 | disposition home or self-care (01) ==
LOC: BICCT 09:29
PROVIDERS: ATTEND Internal Medicine
DX: R10.31 Right lower quadrant pain (principal); Z85.79 Personal history of other malignant neoplasms of lymphoid, hematopoietic and related tissues
CPT/HCPCS: 74177

== ENCOUNTER 2018-03-31 12:13 | Outpatient (CLI) | payer BC | END 2018-03-31 12:14 | disposition home or self-care (01) | LOC: BICRAD 12:13 | PROVIDERS: ATTEND Internal Medicine | DX: R10.2 Pelvic and perineal pain (principal); Z96.641 Presence of right artificial hip joint | CPT/HCPCS: 72170 ==

== ENCOUNTER 2018-04-06 08:20 | Outpatient (CLI) | payer BC | END 2018-04-06 08:21 | disposition home or self-care (01) | LOC: BICMAMMO 08:20 | PROVIDERS: ATTEND Internal Medicine | DX: Z12.31 Encounter for screening mammogram for malignant neoplasm of breast (principal); M87.052 Idiopathic aseptic necrosis of left femur; M85.89 Other specified disorders of bone density and structure, multiple sites; R92.1 Mammographic calcification found on diagnostic imaging of breast; Z80.3 Family history of malignant neoplasm of breast | CPT/HCPCS: 77063; 77067; 77080 ==

== ENCOUNTER 2018-09-09 10:28 | Observation (INO) | payer BC ==
[2018-09-09 11:32] LABS: #Basophils 0.1 thou/uL (0.0-0.2); #Eosinphils 0.1 thou/uL (0.0-0.7); #Lymphocytes 0.7 thou/uL (1.20-3.40); #Monocytes 0.7 thou/uL (0.11-0.59); #Neutrophils 11.4 thou/uL (1.40-6.50); %Basophils 1.1 % (0.0-1.0); %Eosinophils 0.7 % (0.0-10.0); %Lymphocytes 5.3 % (21.0-51.0); %Neutrophils 87.8 % (42.0-75.0); Hemoglobin 11.8 g/dL (12.0-16.0); Mean Corpuscular HGB CONC 32.9 g/dL (32.0-36.0); Mean Corpuscular Hemoglobin 29.9 pg (27.0-31.0); Mean Corpuscular Volume 90.9 fL (78.0-98.0); Mean Platelet Volume 7.8 fL (7.4-10.4); Platelet Count 127 thou/uL (130-400); RBC Distribution Width 13.7 % (11.5-14.5); Red Blood Cell (RBC) Count 3.94 mill/uL (4.20-5.40)
[2018-09-09 11:49] LABS: ALT (SGPT) 30 U/L (8-55); AST (SGOT) 26 U/L (5-34); Albumin 3.9 g/dL (3.5-5.0); Alkaline Phosphatase 83 U/L (40-150); Anion Gap 18 mmol/L (10-20); BUN (Urea Nitrogen) 46 mg/dL (9.8-20.1); Bilirubin, Total 0.6 mg/dL (0.2-1.2); Calc. Creatinine Clearance 0 mL/min (70-130); Calcium 9.8 mg/dL (7.8-10.44); Carbon Dioxide 19 mmol/L (22-29); Chloride 107 mmol/L (98-107); Estimated GFR-MDRD 33; Globulin 2.7 g/dL (2.4-3.5); Glucose 92 mg/dL (70-105); Potassium 4.8 mmol/L (3.5-5.1); Protein, Total 6.6 g/dL (6.0-8.3); Sodium 139 mmol/L (136-145)
[2018-09-09] MEDS ORDERED: Enoxaparin Sodium 100 MG/ML SYRINGE ONE (13:57)
--- NOTE | 2018-09-09 14:17 | ULT ---
LEFT LOWER EXTREMITY VENOUS DUPLEX EXAM: Date: 09/09/18 HISTORY: Patient has left lower extremity pain and swelling. History of previous deep venous thrombosis. FINDINGS: Real-time color Doppler evaluation of the left lower extremity was performed from groin to calf. This includes evaluation of the common femoral, superficial and profunda femoral, saphenous, popliteal, p osterior tibial veins. This shows occlusive thrombus at the common femoral vein and profunda level. T he superficial femoral vein distally and popliteal vein show nonocclusive thrombus. IMPRESSION: Deep venous thrombosis of the left lower extremity. POS: [facility]
[2018-09-09] MEDS ORDERED: Sodium Chloride 0.9% 1,000 ML IV SCH (19:03)
[2018-09-09] MEDS ORDERED: Ondansetron PF 4 MG/2 ML Vial IVP PRN (19:03)
[2018-09-09] MEDS ORDERED: Ondansetron ODT 4 MG TAB SL PRN (19:03)
[2018-09-09] MEDS ORDERED: Acetaminophen 325 MG TAB PO PRN (19:03)
[2018-09-09 21:45] VITALS: BMI 36.2
[2018-09-09] MEDS: Sodium Chloride 0.9% 1,000 ML IV SCH (22:38)
[2018-09-09] MEDS ORDERED: Polyethylene Glycol 3350 17 GM Packet PO PRN (23:31)
[2018-09-09] MEDS ORDERED: Ondansetron ODT 4 MG TAB PO PRN (23:31)
[2018-09-09] MEDS ORDERED: HYDROcodone/Acetaminophen 7.5/325 mg Tablet PO PRN (23:31)
[2018-09-09] MEDS ORDERED: Lorazepam 1 MG TAB PO PRN (23:31)
--- NOTE | 2018-09-10 03:38 | HP ---
PRIMARY CARE DOCTOR: May Myers MD CODE STATUS: Full code. TIME OF EVALUATION: 9:50 p.m. CHIEF COMPLAINT: Left lower extremity swelling and tenderness. HISTORY OF PRESENT ILLNESS: This is a 58-year-old female patient with past medical history of Hodgkin's lymphoma, DVT and PE x3 and lupus. The patient came to the hospital after having a left lower extremity swelling that was severe, associated with redness, tenderness, decreased range of motion due to pain, no clear triggers, no alleviating factors. She was found to have DVT in that extremity. The patient is being started on Lovenox for that reason. REVIEW OF SYSTEMS: CONSTITUTIONAL: No fever, chills, or generalized weakness. RESPIRATORY: No cough, sputum production, or shortness of breath. CARDIOVASCULAR: No chest pain or palpitations. GASTROINTESTINAL: No nausea, vomiting, diarrhea, or abdominal pain. BUSINESS RELATIONSHIP MANAGER: No dizziness, headache or feeling lightheaded. GENITOURINARY: No burning on urination. EXTREMITIES: Left lower extremity swelling, redness and tenderness. All other systems were reviewed and negative except for the findings mentioned above. PAST MEDICAL HISTORY: Positive for DVTs, PE, lupus, Sjogren syndrome, Hodgkin's lymphomain remission. PAST SURGICAL HISTORY: Sinus, cataract, surgical history of appendectomy, cholecystectomy, orthopedic surgery of right hip and left knee, gastric sleeve, IVC filter . PSYCH HISTORY: Anxiety and depression. SOCIAL HISTORY: The patient drinks socially every week. Denies any drug use. Has no smoking history. FAMILY HISTORY: Was reviewed where the mother has a history of breast cancer and father has a history of rheumatoid arthritis. ALLERGIES: KNOWN ALLERGIES TO SULFASALAZINE. REPORTED MEDICATIONS: 1. Prednisone. 2. Lyrica. 3. Omeprazole. 4. . 5. Lorazepam. 6. Mycophenolate mofetil. 7. Zofran. 8. Polyethylene glycol. 9. Tizanidine. 10. Valacyclovir. 11. Brintellix. PHYSICAL EXAMINATION: VITAL SIGNS: On presentation, blood pressure 112/64 with heart rate 95, respiratory rate was 18, temperature 97.9, oxygen saturation was 100% on room air. GENERAL APPEARANCE: The patient is alert, oriented, not in acute distress. HEENT: Eyes, normal conjunctivae. Moist oral mucosa. Anicteric. NECK: No JVD. RESPIRATORY: Bilateral air entry. No rales or wheezes. Symmetric expansion. CARDIOVASCULAR: Normal rate, regular rhythm. No murmurs, no gallops. The patient has bilateral leg edema, new swelling in the left lower extremity. ABDOMEN: Soft. Normal bowel sounds. MUSCULOSKELETAL: Baseline range of motion and strength. No tenderness. SKIN: Warm, intact. No pallor. No rash. No redness. Peripheral pulses are present. Capillary refill seems to be intact. NEUROLOGIC: No evidence of any new focal weakness. Baseline speech. Cranial nerves seems to be intact. PSYCH: The patient is in good mood. No anxiety. Optimal judgment. IMAGING STUDIES: EKG was reviewed. The patient has normal sinus rhythm with a rate of 75; minimum voltage criteria for LVH, may be normal. Radiology, Doppler shows DVT of the left lower extremity. LABORATORY DATA: Labs were reviewed. The patient has white count of 13, hemoglobin 11.8, MCV 90, platelet count 127. Sodium 139, potassium 4.9, chloride 107, carbon dioxide 19, anion gap 18, BUN 46, creatinine 1.6. In previous admissions, creatinine was 0.8, GFR 33, glucose 92, calcium 9.8, total bilirubin 0.6. LFTs were negative. Troponin was negative. Beta-natriuretic peptide was 29.3, albumin globulin ratio is 1.4. ASSESSMENT AND PLAN: The patient is placed in the hospital with following medical problems: 1. Left lower extremity deep venous thrombosis, which has significant redness, is acute, tenderness. The patient is started on Lovenox. The patient will follow with Dr. Ramirez for a history of cancer and multiple deep venous thromboses. Recommended to follow up with her as outpatient. The patient also has an IVC filter. Decision regarding anticoagulation can be discussed in the morning. The patient was on clear liquids before and this could be restarted. Also, Dr. Ramirez has stopped anticoagulation on the patient two years ago. 2. Acute kidney injury. Creatinine was 1.6 and on previous admission was 0.8. We will monitor, we will give hydration, we will adjust treatment accordingly. 3. Leukocytosis, unclear etiology. We will monitor. No evidence of any infection at this point. 4. History of lupus, Sjogren syndrome, Hodgkin's lymphoma in remission. We will reconcile home medications. The patient may need to see Dr. Ramirez as outpatient. 5. Deep venous thrombosis prophylaxis. The patient is already on full-dose Lovenox. Job ID: [id number]
[2018-09-10] MEDS: Enoxaparin Sodium 100 MG/ML SYRINGE SC SCH ×2 (03:54→12:59)
[2018-09-10 06:25] LABS: #Basophils 0.1 thou/uL (0.0-0.2); #Eosinphils 0.2 thou/uL (0.0-0.7); #Lymphocytes 2.8 thou/uL (1.20-3.40); #Monocytes 0.7 thou/uL (0.11-0.59); #Neutrophils 5.5 thou/uL (1.40-6.50); %Basophils 0.6 % (0.0-1.0); %Eosinophils 2.1 % (0.0-10.0); %Lymphocytes 30.2 % (21.0-51.0); %Monocytes 7.7 % (0.0-10.0); %Neutrophils 59.4 % (42.0-75.0); Hemoglobin 10.8 g/dL (12.0-16.0); Mean Corpuscular HGB CONC 32.5 g/dL (32.0-36.0); Mean Corpuscular Hemoglobin 29.3 pg (27.0-31.0); Mean Corpuscular Volume 90.3 fL (78.0-98.0); Mean Platelet Volume 7.7 fL (7.4-10.4); Platelet Count 150 thou/uL (130-400); RBC Distribution Width 13.1 % (11.5-14.5); Red Blood Cell (RBC) Count 3.67 mill/uL (4.20-5.40); White Blood Cell (WBC) Count 9.2 thou/uL (4.8-10.8)
[2018-09-10 06:55] LABS: Anion Gap 15 mmol/L (10-20); BUN (Urea Nitrogen) 32 mg/dL (9.8-20.1); Calc. Creatinine Clearance 89 mL/min (70-130); Calcium 9.1 mg/dL (7.8-10.44); Carbon Dioxide 18 mmol/L (22-29); Chloride 111 mmol/L (98-107); Estimated GFR-MDRD 55; Glucose 74 mg/dL (70-105); Potassium 4.1 mmol/L (3.5-5.1); Sodium 140 mmol/L (136-145)
[2018-09-10] MEDS ORDERED: Multivitamin W/ Minerals 1 TAB PO SCH (09:00)
[2018-09-10] MEDS ORDERED: predniSONE 20 MG TAB PO SCH (09:00)
[2018-09-10] MEDS ORDERED: Vortioxetine Hydrobromide [Trintellix] 20 MG PO SCH ×2 (09:00)
[2018-09-10] MEDS ORDERED: Aspirin 81 mg Enteric Coated Tablet PO SCH (09:00)
[2018-09-10] MEDS ORDERED: Aripiprazole 2 MG TAB PO SCH (09:00)
[2018-09-10] MEDS ORDERED: Bupropion 150 MG XL TAB PO SCH (09:00)
[2018-09-10] MEDS ORDERED: Hydroxychloroquine Sulfate 200 MG TAB PO SCH (09:00)
[2018-09-10] MEDS: Sodium Chloride 0.9% 1,000 ML IV SCH (09:37)
[2018-09-10] MEDS: Mycophenolate 250 MG CAP PO SCH ×2 (09:41→21:43)
[2018-09-10] MEDS: Pregabalin 75 MG CAP PO SCH ×2 (09:45→21:43)
[2018-09-10 09:53] VITALS: TEMP 98
[2018-09-10] MEDS ORDERED: Apixaban 5 MG TAB PO SCH ×2 (19:15)
[2018-09-10 20:53] VITALS: BP 98/50
--- NOTE | 2018-09-11 01:27 | DIS ---
DATE OF ADMISSION: 09/09/2018 DATE OF DISCHARGE: 09/10/2018 DISCHARGE DIAGNOSES: 1. Left lower extremity deep venous thrombosis. 2. History of lupus with lupus profundus. 3. Sjogren syndrome. 4. History of Hodgkin lymphoma, in remission. 5. History of IVC filter placement. HISTORY OF PRESENT ILLNESS: This patient is a 58-year-old female with the above-mentioned of lupus and history of DVTs. The patient apparently had a filter placed prior to having a gastric sleeve procedure and was subsequently changed to aspirin for prophylaxis. The patient reports that she was told she could subsequently reduce to a baby aspirin dose and has done reasonably well with that until this particular episode. This time, the patient presented to the emergency department with left lower extremity swelling that was substantial, initially had some redness and tenderness, and some decreased range of motion due to discomfort. The patient was found to have DVT in the left lower extremity on ultrasound in the emergency department, which showed occlusive thrombus in the common femoral vein and profundal level superficial femoral vein distally, and popliteal vein showed no occlusive thrombus. The patient was placed in the hospital and started on Lovenox. Her labs also appeared to reveal slight evidence of dehydration with prerenal azotemia with a BUN of 46 and creatinine of 1.6. Her white count was 13.0. The patient was hydrated and subsequent labs showed her white count down to at 9.2 and BUN down to 32, creatinine down to 1.02. The patient had reported some dyspnea on exertion prior to her admission that was felt to likely be due to dehydration, risk of pulmonary embolus was extremely low given her IVC filter. She was asked to get up and ambulate after hydration and she reported that she was only minimally short of breath and she felt perfectly comfortable discharging. I discussed the case with her cut pressman, Dr. Ramirez, who also agreed that the patient was perfectly reasonable for discharge on Eliquis, standard dosing. DISCHARGE PHYSICAL EXAMINATION: VITAL SIGNS: At the time of discharge, temperature was 98, pulse 84, respirations 18, O2 saturation 95% on room air, BP was 103/55. GENERAL: The patient is awake and alert. She is obese, in no distress. HEART: Regular. LUNGS: Clear. ABDOMEN: Benign. EXTREMITIES: Do reveal significant edema of the left lower extremity with some edema up into the thigh. SKIN: Does reveal significant atrophic and scarred tissue at the level of the sacrum and into the upper rectal cleft area. DISPOSITION: The patient is being discharged to home. DISCHARGE MEDICATIONS: She is to continue with her usual home medications to include; 1. Lorazepam. 2. Abilify. 3. Aspirin. 4. Diltiazem. 5. Zofran. 6. MiraLAX. 7. Bupropion. 8. Plaquenil. 9. Mycophenolate. 10. Omeprazole. 11. Lyrica. 12. Prednisone. 13. Trintellix. 14. [place]. 15. Multivitamin. 16. She will now also be on Eliquis 5 mg two p.o. b.i.d. for one week and then one p.o. b.i.d. DIET/ACTIVITY: She is to have a regular diet and her activity level is as tolerated. DISCHARGE FOLLOWUP: She is to call Dr. Ramirez for followup and she can return to the emergency department should she have any problems prior to that time. Job ID: [id number]
== END 2018-09-10 21:43 | disposition home or self-care (01) ==
LOC: SCSER 10:28 → 2NO 13:25
PROVIDERS: ADMIT Internal Medicine; ATTEND Internal Medicine
DX: I82.412 Acute embolism and thrombosis of left femoral vein (principal); I82.432 Acute embolism and thrombosis of left popliteal vein; L93.2 Other local lupus erythematosus; M35.00 Sjogren syndrome, unspecified; C81.90 Hodgkin lymphoma, unspecified, unspecified site; F41.8 Other specified anxiety disorders; Z88.2 Allergy status to sulfonamides; N17.9 Acute kidney failure, unspecified; Z79.01 Long term (current) use of anticoagulants; Z79.52 Long term (current) use of systemic steroids; Z79.82 Long term (current) use of aspirin; Z79.899 Other long term (current) drug therapy; Z95.820 Peripheral vascular angioplasty status with implants and grafts; Z98.84 Bariatric surgery status
CPT/HCPCS: 36415; 80048; 80053; 83880; 84484; 85025; 93005; 96360; 96361; 96372; G0378; J1650

== ENCOUNTER 2018-09-20 12:24 | Outpatient (CLI) | payer BC ==
[~2018-09-20 12:24] MED LIST: Gadobenate Dimeglumine 529 MG/1 ML (20ML VIAL) ONE
--- NOTE | 2018-09-20 17:30 | MRI ---
MRI THORACIC SPINE WITH AND WITHOUT CONTRAST: Technique: Multiplanar, multisequential imaging of the thoracic spine obtained. Post contrast imaging obtained after administration of MultiHance. Indication: Pain, weakness right leg. Vertebroplasty at T5. Comparison: May 2016 FINDINGS: Mild anterior compression deformity and vertebroplasty change at T5 is again noted. Changes at T5 are stable when compared to 2016. The other thoracic vertebrae maintain normal height and alignment. There is an asymmetric disc protrusion centrally and paracentrally to the left at the T10-11 disc. Th is is a stable protrusion when compared to the prior study. The thoracic cord appears unremarkable. IMPRESSION: 1. Compression deformity with vertebroplasty changes at T5 appear stable. 2. Disc protrusion to the left at T10-11 is again seen, described on prior exam from 2016. POS: [facility]
--- NOTE | 2018-09-20 17:38 | MRI ---
MRI LUMBAR SPINE WITH AND WITHOUT CONTRAST: Technique: Multiplanar, multisequential imaging of the lumbar spine obtained. Indications: Pain and weakness right leg, low back pain. Comparison: MRI lumbar spine 06-10-16. FINDINGS: Lumbar vertebrae maintain height. Degenerative disc changes are prominent at L4-5 but stable when com pared to the prior study. At L1-2 there is diffuse disc bulge similar to the prior exam. There is slight indention of the anter ior thecal sac without impingement on the conus. No significant central canal stenosis. At L2-3 broad based disc bulge with facet hypertrophy. No significant central canal stenosis. At L3-4 mild disc bulge. Facet and ligamentous hypertrophy. Small synovial cyst on the left posterior ly within the ligamentum flavum. Mild central canal stenosis. A tiny cyst measures in the 4-5 mm rang e and was present previously. At L4-5 degenerative disc changes. Posterior disc bulge/protrusion, similar to the prior exam. Bilate ral facet and ligamentous hypertrophy. Moderate central canal stenosis and compression of the thecal sac, not significantly changed from the exam of 2016. At L5-S1 diffuse disc protrusion flattening the thecal sac. Facet hypertrophy. Moderate central canal stenosis. There is foraminal stenosis seen bilaterally at L4-5 and L5-S1. Signal abnormality in the subcutaneous adipose tissues seen posteriorly to the lumbar spine in the mi dline is again seen and does not appear significantly changed from the prior study of 2016. This sign al abnormality has a more fluid signal appearance today and I cannot exclude adipose necrosis with se condary seroma or hematoma. Soft tissue ultrasound is suggested to assess for fluid accumulation. Ult rasound guided aspiration could be performed for diagnostic purposes if indicated. IMPRESSION: 1. Degenerative disc changes as described above, similar appearance to the prior exam from 2016. 2. There is abnormal signal in the subcutaneous adipose tissues in the midline posterior to the lumba r spine. These signal changes were present in 2016 but show a more fluid dense signal character today . Necrosis with seroma or hematoma are considerations. Recommend further evaluation with ultrasound t o asses for possible fluid collection. POS: [facility]
== END 2018-09-20 12:25 | disposition home or self-care (01) ==
LOC: SCSMRI 12:24
PROVIDERS: ATTEND Internal Medicine
DX: M32.9 Systemic lupus erythematosus, unspecified (principal); M54.9 Dorsalgia, unspecified; R29.898 Other symptoms and signs involving the musculoskeletal system; M79.604 Pain in right leg; M79.605 Pain in left leg; M51.36 Other intervertebral disc degeneration, lumbar region; R93.7 Abnormal findings on diagnostic imaging of other parts of musculoskeletal system; M51.24 Other intervertebral disc displacement, thoracic region; M43.8X4 Other specified deforming dorsopathies, thoracic region
CPT/HCPCS: 72157; 72158

== ENCOUNTER 2018-09-21 10:39 | Outpatient (CLI) | payer BC ==
--- NOTE | 2018-09-21 11:39 | RAD ---
TWO VIEWS CHEST: Comparison: 07-29-13 History: Cough for a few weeks. FINDINGS: Two views of the chest shows a normal sized cardiomediastinal silhouette. There is no evidence of con solidation, mass, or pleural effusion. Vertebroplasty cement is seen in the upper thoracic spine. IMPRESSION: No evidence of acute osseous abnormality. POS: [facility]
== END 2018-09-21 10:40 | disposition home or self-care (01) ==
LOC: BICRAD 10:39
PROVIDERS: ATTEND Internal Medicine
DX: R05 Cough (principal); R53.1 Weakness
CPT/HCPCS: 71046

== ENCOUNTER 2018-09-21 15:24 | Outpatient (CLI) | payer BC ==
--- NOTE | 2018-09-21 17:02 | ULT ---
ULTRASOUND SOFT TISSUES (LOWER BACK): HISTORY: Low back pain and weakness of the right leg. Abnormal MRI of 09/20/2018. Exam requested to assess f or a fluid collection. FINDINGS: Sonographic evaluation of the soft tissues of the lower back demonstrate no obvious loculated fluid c ollection. An MRI is a better exam for this purpose. POS: [facility]
== END 2018-09-21 15:25 | disposition home or self-care (01) ==
LOC: ULT 15:24 → BICULT 15:25
PROVIDERS: ATTEND Internal Medicine
DX: M79.3 Panniculitis, unspecified (principal); L02.212 Cutaneous abscess of back [any part, except buttock and flank]
CPT/HCPCS: 76999

== ENCOUNTER 2018-11-19 12:34 | Outpatient (CLI) | payer BC ==
--- NOTE | 2018-11-19 13:06 | RAD ---
CHEST TWO VIEWS: HISTORY: Cough. COMPARISON: 09/21/2018 FINDINGS: There are increased linear and interstitial markings noted bilaterally. These markings appear more p rominent than on the prior study, with some multifocal areas of very mild linear and interstitial [place] changes in the right and left mid lung zones. This could suggest some minimal or early nonspeci fic pneumonia or pneumonitis. No confluent lobar pneumonia. Heart size is borderline enlarged. No significant pleural effusion. IMPRESSION: Increased linear and interstitial markings bilaterally, slightly more prominent than on the prior adela dy, raising concern for very minimal or early acute atypical pneumonia or pneumonitis. No lobar pneu monia or other acute process. Short-term followup for clearing or stability is suggested. POS: [facility]
== END 2018-11-19 12:35 | disposition home or self-care (01) ==
LOC: BICRAD 12:34
PROVIDERS: ATTEND Internal Medicine
DX: R05 Cough (principal); J11.1 Influenza due to unidentified influenza virus with other respiratory manifestations
CPT/HCPCS: 71046; 81001; 87086

== ENCOUNTER 2018-11-26 10:54 | Outpatient (CLI) | payer BC ==
--- NOTE | 2018-11-26 11:27 | RAD ---
XR Chest Pa Lat STANDARD HISTORY: Cough COMPARISON: 11/19/2018 FINDINGS: The heart size is borderline. No lobar consolidation, pneumothoraces, ila pulmonary edema or pleural effusions are seen. Prominent interstitial markings are again seen. There are postop changes of vertebroplasty in the thoracic spine IMPRESSION: No evidence of lobar pneumonia.
== END 2018-11-26 10:55 | disposition home or self-care (01) ==
LOC: BICRAD 10:54
PROVIDERS: ATTEND Internal Medicine
DX: R05 Cough (principal); R91.8 Other nonspecific abnormal finding of lung field
CPT/HCPCS: 71046

== ENCOUNTER 2019-02-03 12:45 | Outpatient (CLI) | payer BC ==
--- NOTE | 2019-02-03 15:21 | MRI ---
RIGHT KNEE MRI WITHOUT IV CONTRAST: Date: 02/03/19 HISTORY: Tear of lateral meniscus right knee, right knee pain. FINDINGS: Tricompartment arthrosis and degenerative change and irregular cartilage loss. Some generalized subcu taneous fat stranding and swelling. Complex flap tear involving the lateral meniscus, including the b shanice and extending into the posterior horn and evidence for a displaced flap at the level of the poste rior root. Prominent intrasubstance degenerative signal of the medial meniscus, particularly the post erior horn and posterior body. Anterior and posterior cruciate ligaments, collateral ligament complex es, and quadriceps and patellar tendons appear intact. No significant abnormal joint effusion. No acu te osteochondral defect or significant abnormal marrow signal. IMPRESSION: Complex flap tear lateral meniscus. Considerable intrasubstance degenerative signal of the medial men iscus with some slight flattening of the meniscus. Generalized subcutaneous fat stranding. No evidenc e for other significant acute internal derangement. POS: [facility]
== END 2019-02-03 12:46 | disposition home or self-care (01) ==
LOC: SCSMRI 12:45
PROVIDERS: ATTEND Orthopaedic Surgery
DX: S83.281A Other tear of lateral meniscus, current injury, right knee, initial encounter (principal)

== ENCOUNTER 2019-04-13 11:13 | Outpatient (CLI) | payer MEDICARE, BC ==
[2019-04-13 16:58] LABS: #Basophils 0.1 thou/uL (0.0-0.2); #Monocytes 0.3 thou/uL (0.11-0.59); #Neutrophils 6.9 thou/uL (1.40-6.50); %Basophils 0.8 % (0.0-1.0); %Eosinophils 0.2 % (0.0-10.0); %Lymphocytes 12.4 % (21.0-51.0); %Monocytes 3.3 % (0.0-10.0); %Neutrophils 83.4 % (42.0-75.0); Hemoglobin 12.9 g/dL (12.0-16.0); Mean Corpuscular HGB CONC 32.3 g/dL (32.0-36.0); Mean Corpuscular Hemoglobin 33.4 pg (27.0-31.0); Mean Platelet Volume 7.6 fL (7.4-10.4); Platelet Count 168 thou/uL (130-400); Red Blood Cell (RBC) Count 3.87 mill/uL (4.20-5.40); White Blood Cell (WBC) Count 8.3 thou/uL (4.8-10.8)
[2019-04-13 17:28] LABS: Anion Gap 15 mmol/L (10-20); BUN (Urea Nitrogen) 16 mg/dL (9.8-20.1); Calc. Creatinine Clearance 0 mL/min (70-130); Calcium 9.2 mg/dL (7.8-10.44); Carbon Dioxide 26 mmol/L (22-29); Chloride 107 mmol/L (98-107); Estimated GFR-MDRD 48; Glucose 110 mg/dL (70-105); Potassium 4.5 mmol/L (3.5-5.1); Sodium 143 mmol/L (136-145)
--- NOTE | 2019-04-14 20:16 | EKG ---
Test Reason : Blood Pressure : / mmHG Vent. Rate : 075 BPM Atrial Rate : 075 BPM P-R Int : 168 ms QRS Dur : 160 ms QT Int : 480 ms P-R-T Axes : 051 028 039 degrees QTc Int : 536 ms Normal sinus rhythm Right bundle branch block Abnormal ECG When compared with ECG of 09-SEP-2018 11:48, Right bundle branch block is now Present Questionable change in initial forces of Anterior leads Confirmed by VINI HSU, SArnoldo ([id number]) on 04/14/2019 8:16:00 PM Referred By: [facility]CI Confirmed By:DR. Myron MARTINI MD
== END 2019-04-13 11:14 | disposition home or self-care (01) ==
LOC: LABBT 11:13
PROVIDERS: ATTEND Orthopaedic Surgery
DX: Z01.818 Encounter for other preprocedural examination (principal); S83.281A Other tear of lateral meniscus, current injury, right knee, initial encounter
CPT/HCPCS: 80048; 85025; 93005; 93010

== ENCOUNTER 2019-04-22 05:54 | Day surgery (SDC) | payer MEDICARE, BC ==
[2019-04-13 15:20] VITALS: BMI 37.0
[2019-04-22] MEDS ORDERED: Fentanyl 100 MCG/2 ML VIAL ONE ×2 (06:31→06:50)
[2019-04-22] MEDS ORDERED: PROPOFOL 0 ML ONE (06:45)
[2019-04-22] MEDS ORDERED: Midazolam HCl 2 mg/2 ml Vial ONE (06:50)
--- NOTE | 2019-04-22 10:51 | OP ---
DATE OF PROCEDURE: 04/22/2019 PREOPERATIVE DIAGNOSES: Lateral meniscus tear and possible medial meniscus tear, right knee. POSTOPERATIVE DIAGNOSIS: Complex large small degenerative fraying tear and was not excised. ANESTHESIA: General. BLOOD LOSS: Minimal. SPECIMEN: None. DRAINS: None. COMPLICATIONS: None. FINDINGS OF SURGERY: Complex lateral meniscus tear involving almost the entire lateral meniscus fraying, degenerative-type tear of the medial meniscus which was not debrided, grade 3 chondromalacia medial femoral condyle, grade 2 chondromalacia lateral femoral condyle. DESCRIPTION OF PROCEDURE: The patient was taken to the operating room, where general anesthesia was induced. The patient was prepped and draped in usual sterile fashion. Scope was placed in the lateral portal, probe was placed in a medial portal and performed lateral meniscectomy using basket forceps and smoothed using a 4.0 full-radius resector, almost the entire lateral meniscus was removed in this technique. There was a small rim posterior to the probe found to be stable. The medial meniscus probe found to be stable. Knee was drained. Sterile dressings applied. Job ID: [id number]
== END 2019-04-22 10:20 | disposition home or self-care (01) ==
LOC: SDC 05:54
PROVIDERS: ATTEND Orthopaedic Surgery
PROC: 0SBC4ZZ Excision of Right Knee Joint, Percutaneous Endoscopic Approach (ICD-10-PCS; principal; 2019-04-22)
DX: S83.271A Complex tear of lateral meniscus, current injury, right knee, initial encounter (principal); M23.303 Other meniscus derangements, unspecified medial meniscus, right knee; M94.261 Chondromalacia, right knee; F32.9 Major depressive disorder, single episode, unspecified; M32.9 Systemic lupus erythematosus, unspecified; K21.9 Gastro-esophageal reflux disease without esophagitis; G47.33 Obstructive sleep apnea (adult) (pediatric); Z85.71 Personal history of Hodgkin lymphoma; Z86.711 Personal history of pulmonary embolism; Z86.718 Personal history of other venous thrombosis and embolism; Z87.891 Personal history of nicotine dependence; Z79.899 Other long term (current) drug therapy; Z88.2 Allergy status to sulfonamides; Z88.5 Allergy status to narcotic agent
CPT/HCPCS: J0690; J2250; J2704; J3010

== ENCOUNTER 2019-12-21 09:08 | Outpatient (CLI) | payer MEDICARE, BC ==
--- NOTE | 2019-12-21 11:14 | ULT ---
HEPATIC ULTRASOUND WITH DOPPLER: INDICATION: Hyperbilirubinemia. The patient is status post cholecystectomy. FINDINGS: The liver is echogenic consistent with fatty infiltration or medical hepatic disease. Color Doppler with spectral analysis is used to evaluate the hepatic vessels. Hepatic vessels includ ing hepatic veins, portal veins, hepatic artery, splenic vein, and splenic artery all show normal blo od flow. The pancreas is obscured. Common bile duct is normal caliber measured at 6 mm. The spleen appears unremarkable. IMPRESSION: 1. Echogenic liver consistent with hepatic steatosis and/or medical hepatic disease. 2. Hepatic vessels show hepatopetal blood flow. POS: [facility]
== END 2019-12-21 09:09 | disposition home or self-care (01) ==
LOC: ULT 09:08
PROVIDERS: ATTEND Internal Medicine Gastroenterology
DX: E80.6 Other disorders of bilirubin metabolism (principal); R10.13 Epigastric pain; R19.7 Diarrhea, unspecified
CPT/HCPCS: 76705

== ENCOUNTER 2019-12-29 08:52 | Outpatient (CLI) | payer MEDICARE, BC ==
--- NOTE | 2019-12-29 09:37 | MMO ---
Bilateral MAMMO Bilat Screen [facility]DI[facility]ZO. CLINICAL HISTORY: Patient is 59 years old and is seen for screening. The patient has the following family history of breast cancer: mother, malignant (generic); maternal aunt, malignant (generic) and cousin female, malignant (generic). The patient has no personal history of cancer. VIEWS: The views performed were: bilateral craniocaudal with tomosynthesis and bilateral mediolateral oblique with tomosynthesis. FILMS COMPARED: The present examination has been compared to prior imaging studies performed at [facility] on 02/05/2015, 03/06/2016, 03/10/2017 and 04/06/2018. This study has been interpreted with the assistance of computer-aided detection. MAMMOGRAM FINDINGS: There are scattered fibroglandular densities. There are stable benign appearing calcifications seen in both breasts. There are no suspicious masses, suspicious calcifications, or new areas of architectural distortion. IMPRESSION: THERE IS NO MAMMOGRAPHIC EVIDENCE OF MALIGNANCY. A ROUTINE FOLLOW-UP MAMMOGRAM IN 1 YEAR IS RECOMMENDED. THE RESULTS OF THIS EXAM WERE SENT TO THE PATIENT. ACR BI-RADS Category 2 - Benign finding MAMMOGRAPHY NOTE: 1. A negative mammogram report should not delay a biopsy if a dominant of clinically suspicious mass is present. 2. Approximately 10% to 15% of breast cancers are not detected by mammography. 3. Adenosis and dense breasts may obscure an underlying neoplasm. Reported by: NIC FORD MD Electonically Signed: [id number]
== END 2019-12-29 08:53 | disposition home or self-care (01) ==
LOC: BICMAMMO 08:52
PROVIDERS: ATTEND Internal Medicine
DX: Z12.31 Encounter for screening mammogram for malignant neoplasm of breast (principal); Z80.3 Family history of malignant neoplasm of breast
CPT/HCPCS: 36415; 77063; 77067; 82746; 85025

== ENCOUNTER 2020-09-03 09:31 | Inpatient (IN) | payer MEDICARE, BC ==
[2020-09-03] MEDS ORDERED: Ondansetron PF 4 MG/2 ML Vial ONE (10:33)
[2020-09-03] MEDS ORDERED: Morphine 4 MG/ML VIAL ONE (10:33)
[2020-09-03 10:35] LABS: #Basophils 0.1 thou/uL (0.0-0.2); #Lymphocytes 1.4 thou/uL (1.20-3.40); #Monocytes 0.7 thou/uL (0.11-0.59); #Neutrophils 9.2 thou/uL (1.40-6.50); %Basophils 0.6 % (0.0-1.0); %Eosinophils 0.3 % (0.0-10.0); %Lymphocytes 12.4 % (21.0-51.0); %Monocytes 6.1 % (0.0-10.0); %Neutrophils 80.5 % (42.0-75.0); Hemoglobin 12.8 g/dL (12.0-16.0); Mean Corpuscular HGB CONC 31.5 g/dL (32.0-36.0); Mean Corpuscular Hemoglobin 32.8 pg (27.0-31.0); Mean Platelet Volume 8.3 fL (7.4-10.4); Platelet Count 132 thou/uL (130-400); Red Blood Cell (RBC) Count 3.89 mill/uL (4.20-5.40); White Blood Cell (WBC) Count 11.4 thou/uL (4.8-10.8)
[2020-09-03 10:56] LABS: ALT (SGPT) 15 U/L (8-55); AST (SGOT) 24 U/L (5-34); Albumin 3.8 g/dL (3.4-4.8); Alkaline Phosphatase 78 U/L (40-110); Anion Gap 15 mmol/L (10-20); BUN (Urea Nitrogen) 31 mg/dL (9.8-20.1); Bilirubin, Total 3.9 mg/dL (0.2-1.2); CK (CPK) 113 U/L (29-168); Calc. Creatinine Clearance 0 mL/min (70-130); Calcium 8.9 mg/dL (7.8-10.44); Carbon Dioxide 24 mmol/L (23-31); Chloride 105 mmol/L (98-107); Globulin 2.4 g/dL (2.4-3.5); Glucose 76 mg/dL (80-115); Magnesium 1.9 mg/dL (1.6-2.6); Potassium 3.7 mmol/L (3.5-5.1); Protein, Total 6.2 g/dL (5.8-8.1); Sodium 140 mmol/L (136-145)
[2020-09-03] MEDS ORDERED: Iopamidol-370 76% 500 ML 1 ML ONE (11:11)
--- NOTE | 2020-09-03 11:55 | RAD ---
EXAM: 2 views of the right hip HISTORY: Right hip pain after fall COMPARISON: CT abdomen/pelvis 03/26/2018 FINDINGS: 2 views of the right hip shows the patient is status post right hip arthroplasty without pe rihardware lucency or fracture. No degenerative changes are seen. No soft tissue swelling is present. Contrast is seen in the urinary bladder from recent contrast examination. Calcifications are seen in the paraspinal soft tissues. IMPRESSION: No evidence of acute osseous abnormality.
--- NOTE | 2020-09-03 11:57 | CT ---
CTA THORAX WITH CONTRAST: (Computed Tomographic Angiography, chest(noncoronary) with contrast material, and image postprocessin g) (PE protocol) DATE: 09/03/2020. HISTORY: A 60-year-old female with dyspnea. TECHNIQUE: IV injection of iodinated contrast. Scan acquisition timing attempted to coincide with iodinated contrast bolus reaching maximal density in pulmonary arteries. 3D MIP reconstructions. FINDINGS: Small sliding hiatal hernia. Suture ling along narrowed stomach. No thoracic aortic aneurysm or dissection. Paracardial fat pad. No paracardial effusion. No mediastinal lymphadenopathy. Mild bilateral hilar lymphadenopathy. No evidence of thrombus in pulmonary artery branches, main pulmonary arteries, or pulmonic trunk. Reticular subpleural, mostly mild, pulmonary densities in the upper, mid, and lower lung zones, invol ving upper lobes, lower lobes, and right middle lobe. No consolidation, pleural effusion, or pneumothorax. Trachea and major bronchi are patent and clear. Vertebroplasty cement in one of the mid thoracic vertebral bodies. In the lowermost images, there is an ill-defined soft tissue density mass containing multiple calcifi cations in the soft tissues posterior to the spine at midline at the thoracolumbar junction, incomple tely imaged. This may represent exuberant scar tissue such as a keloid. IMPRESSION: 1. No evidence of pulmonary thromboembolism. 2. No acute findings. 3. Nonspecific, chronic-appearing subpleural reticular pulmonary densities. 4. Status post vertical sleeve gastrectomy and cholecystectomy. 5. Midline mass posterior to the thoracolumbar junction involving the subcutaneous fat. See above luke castellanos. orion[] POS: [facility]
[2020-09-03] MEDS ORDERED: cefTRIAXone\\ROCEPHIN 2 GM VIAL ONE (13:17)
[2020-09-03] MEDS ORDERED: Albuterol 200 PUFF (6.7GM INHALER) ONE (13:19)
[2020-09-03] MEDS ORDERED: Acetaminophen 325 MG TAB PO PRN (13:33)
[2020-09-03] MEDS ORDERED: Ondansetron PF 4 MG/2 ML Vial IVP PRN (13:33)
--- NOTE | 2020-09-03 13:49 | PDOC.HHP ---
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 Patient states 1 week ago she slid on the ice and felt her right hip popped, she did not fell, since then she has been having right hip pain. She has not noticed any swelling. She is having difficulty bearing weight on her right leg. She has been having intermittent vertigo for the past month but no dizziness prior to her fall. She also noted that she has been having shortness of breath since this morning, has mild dry cough. She denies chest pain, fever, chills, orthopnea, or PND. She has chronic right leg swel ling. She received her first COVID-19 vaccine last week. ED Course: In the ED, initial SPO2 was noted to be 88% on room air. Afebrile. Labs showed lactic acidosis, mild leukocytosis. And elevated creatinine level. Allergies/Adverse Reactions: Allergy/AdvReac Type Severity Reaction Status Date / Time sulfasalazine Allergy Rash Verified 10/02/19 02:35 tramadol Allergy Hives Verified 10/02/19 02:35 Home Medications: Medication Instructions Recorded Confirmed Type Pregabalin [Lyrica] 450 mg PO BID 11/12/15 09/09/18 History Lorazepam 1 mg PO Q6HR PRN 12/07/15 09/09/18 History Vortioxetine Hydrobromide 20 mg PO DAILY 01/15/16 09/09/18 History [Trintellix] Hydroxychloroquine Sulfate 200 mg PO BID 04/08/17 04/13/19 History [Plaquenil] Omeprazole 20 mg PO DAILY 04/08/17 09/09/18 History buPROPion HCl [buPROPion HCl XL] 300 mg PO DAILY 04/08/17 09/09/18 History predniSONE 10 mg PO DAILY #0 05/24/17 09/09/18 Rx Aripiprazole [Abilify] 2 mg PO DAILY 01/21/18 09/09/18 History Diltiazem HCl [Cartia XT] 120 mg PO DAILY 01/21/18 09/09/18 History Polyethylene Glycol 3350 [Miralax] 17 gm PO DAILY PRN 01/21/18 09/09/18 History Apixaban [Eliquis] 5 mg PO BID #70 tablet 09/10/18 Rx Acetaminophen [Tylenol] 1,000 mg PO Q6HR PRN 04/13/19 04/13/19 History Cholecalciferol (Vitamin D3) 5,000 unit PO DAILY 04/13/19 04/13/19 History [Vitamin D3] Cyanocobalamin/Cobamamide [Vitamin 1 each SL DAILY 04/13/19 04/13/19 History B-12 5,000 Mcg Tab Sl] Dapsone 150 mg PO DAILY 04/13/19 04/13/19 History HYDROcodone/Acetaminophen 1 tab PO ASDIR PRN 04/13/19 04/13/19 History [Hydrocodone-Acetamin 10-325 mg] Ketoconazole [Ketoconazole 2% Foam] 1 applic TOP BID 04/13/19 04/13/19 History Nystatin [Nystatin Powder] 1 applic TOP BID 04/13/19 04/13/19 History Ondansetron [Zofran ODT] 8 mg PO Q4HR PRN 04/13/19 04/13/19 History tiZANidine HCl [Tizanidine HCl] 2 mg PO TID PRN 04/13/19 04/13/19 History valACYclovir HCl [Valacyclovir] 1,000 mg PO DAILY PRN 04/13/19 04/13/19 History Past History: PMHx: lupus, osteoporosis, Sjogren syndrome, morbid obesity, 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 Former smoker (stopped 30 years ago). Denies drug use Hospitalist HPI ROS Constitutional: denies: fever, chills Eyes: reports: vision change (intermittent) ENT: denies: throat pain Respiratory: reports: cough, dry, shortness of breath Cardiovascular: denies: chest pain Gastrointestinal: reports: nausea. denies: vomiting, diarrhea Genitourinary: denies: dysuria, frequency Musculoskeletal: reports: other (positive for right hip pain) Other: positive for intermittent vertigo. Negative for Vertigo All other systems reviewed; all pertinent +/- noted in HPI/Subj Hospitalist Exam General Appearance: NAD, awake alert General - other findings: Obese Eye: PERRL ENT: moist mucosa Neck: supple, no JVD Heart: RRR, no murmur Respiratory: CTAB, no wheezes, no tachypnea Gastrointestinal: soft, non-tender, non-distended Extremities: 1+ LE edema Skin - other findings: no erythema on the right hip area Neurological: normal sensation to touch, no weakness (except some decreased strength on the RLE due to hip pain) Musculoskeletal: normal strength (except some decreased strength on the RLE due to hip pain) Musculoskeletal - other findings: tender on the right hip area with limitted motion due to pain Psychiatric: normal affect, A&O x 3 Hospitalist Results Result Diagrams: 09/03/20 10:09/03/20 10:27 Lab results: Laboratory Last Values WBC 11.4 thou/uL (4.8-10.8) H 09/03/20 10:27 RBC 3.89 mill/uL (4.20-5.40) L 09/03/20 10:27 Hgb 12.8 g/dL (12.0-16.0) 09/03/20 10:27 Hct 40.6 % (36.0-47.0) 09/03/20 10:27 MCV 104.0 fL (78.0-98.0) H 09/03/20 10:27 MCH 32.8 pg (27.0-31.0) H 09/03/20 10:27 MCHC 31.5 g/dL (32.0-36.0) L 09/03/20 10:27 RDW 20.0 % (11.5-14.5) H 09/03/20 10:27 Plt Count 132 thou/uL (130-400) 09/03/20 10:27 MPV 8.3 fL (7.4-10.4) 09/03/20 10:27 Neutrophils % 80.5 % (42.0-75.0) H 09/03/20 10:27 Lymphocytes % 12.4 % (21.0-51.0) L 09/03/20 10:27 Monocytes % 6.1 % (0.0-10.0) 09/03/20 10:27 Eosinophils % 0.3 % (0.0-10.0) 09/03/20 10:27 Basophils % 0.6 % (0.0-1.0) 09/03/20 10:27 Neutrophils # 9.2 thou/uL (1.40-6.50) H 09/03/20 10:27 Lymphocytes # 1.4 thou/uL (1.20-3.40) 09/03/20 10:27 Monocytes # 0.7 thou/uL (0.11-0.59) H 09/03/20 10:27 Eosinophils # 0.0 thou/uL (0.0-0.7) 09/03/20 10:27 Basophils # 0.1 thou/uL (0.0-0.2) 09/03/20 10:27 Sodium 140 mmol/L (136-145) 09/03/20 10:27 Potassium 3.7 mmol/L (3.5-5.1) 09/03/20 10:27 Chloride 105 mmol/L (98-107) 09/03/20 10:27 Carbon Dioxide 24 mmol/L (23-31) 09/03/20 10:27 Anion Gap 15 mmol/L (10-20) 09/03/20 10:27 BUN 31 mg/dL (9.8-20.1) H 09/03/20 10:27 Creatinine 1.14 mg/dL (0.6-1.1) H 09/03/20 10:27 Estimated GFR (MDRD) 48 09/03/20 10:27 Glucose 76 mg/dL (80-115) L 09/03/20 10:27 Lactic Acid 2.6 mmol/L (0.5-2.2) H 09/03/20 11:22 Calcium 8.9 mg/dL (7.8-10.44) 09/03/20 10:27 Magnesium 1.9 mg/dL (1.6-2.6) 09/03/20 10:27 Total Bilirubin 3.9 mg/dL (0.2-1.2) H 09/03/20 10:27 AST 24 U/L (5-34) 09/03/20 10:27 ALT 15 U/L (8-55) 09/03/20 10:27 Alkaline Phosphatase 78 U/L (40-110) 09/03/20 10:27 Creatine Kinase 113 U/L (29-168) 09/03/20 10:27 Troponin I 0.012 ng/mL (< 0.028) 09/03/20 10:27 B-Natriuretic Peptide 69.9 pg/mL (0-100) 09/03/20 10:27 Serum Total Protein 6.2 g/dL (5.8-8.1) 09/03/20 10:27 Albumin 3.8 g/dL (3.4-4.8) 09/03/20 10:27 Globulin 2.4 g/dL (2.4-3.5) 09/03/20 10:27 Albumin/Globulin Ratio 1.6 g/dL (1.2-2.2) 09/03/20 10:27 Hospitalist H&P A/P (1) Acute respiratory failure with hypoxia Code(s): J96.01 - ACUTE RESPIRATORY FAILURE WITH HYPOXIA Status: Acute Assessment and Plan: Spo2 in the high 80's on RA and low to mid 90's on 4L NC. No respiratory distress or significant volume overload on exam. COVID-19 test is negative. CTA chest showed nonspecific chronic appearing subpleural reticular pulmonary dencities but no PE. Cause of hypoxia not clear at this time. Plan: -O2 supplement as needed -Echo (2) MESFIN (acute kidney injury) Code(s): N17.9 - ACUTE KIDNEY FAILURE, UNSPECIFIED Status: Acute Assessment and Plan: Patient denies history of CKD, her last creatinine level in 11/2019 was 1.24, the one before that was normal. Plan: -Gentle IV hydration -repeat lab in AM (3) Lactic acidosis Code(s): E87.2 - ACIDOSIS Status: Acute Assessment and Plan: Patient afebrile. Has mild leukocytosis, however she is on steroid. Plan: -UA -Blood Cx -Vanc and Cefepime for now -IV fluid (4) Right hip pain Code(s): M25.551 - PAIN IN RIGHT HIP Status: Acute Assessment and Plan: x-ray showed no acute findings. Plan: -Pain management with PO meds -PT consult (5) Systemic lupus erythematosus Code(s): M32.9 - SYSTEMIC LUPUS ERYTHEMATOSUS, UNSPECIFIED Status: Chronic Assessment and Plan: Plan: -cont prednisone and Plaquenil
[2020-09-03] MEDS ORDERED: Azithromycin 500 MG VIAL ONE (14:30)
[2020-09-03 14:40] LABS: Troponin I 0.017 ng/mL (< 0.028)
[2020-09-03 15:06] LABS: Lactic Acid 1.6 mmol/L (0.5-2.2)
[2020-09-03 16:09] LABS: SARS-CoV-2 PCR by NAA Not Detected (NotDetected)
[2020-09-03] MEDS: Sodium Chloride 0.9% 1,000 ML IV SCH (16:31)
[2020-09-03 18:14] LABS: Troponin I 0.019 ng/mL (< 0.028)
[2020-09-03] MEDS ORDERED: HYDROcodone/Acetaminophen 5/325 mg Tablet ONE (20:43)
[2020-09-03] MEDS: HYDROcodone/Acetaminophen 5/325 mg Tablet PO PRN (20:44)
[2020-09-03 21:41] VITALS: BMI 40.3
[2020-09-03] MEDS ORDERED: Cefepime 1 GM VIAL ONE (22:29)
[2020-09-03] MEDS: Cefepime 1 GM in Sodium Chloride 0.9% 100 ML IVPB SCH (22:32)
[2020-09-03] MEDS: Apixaban 5 MG TAB PO SCH (23:11)
[2020-09-03] MEDS: Hydroxychloroquine Sulfate 200 MG TAB PO SCH (23:11)
[2020-09-03 23:15] LABS: Bacteria/HPF None Seen HPF (None Seen); Bilirubin Negative (Negative); Blood, Urine Negative (Negative); Clarity Clear (Clear); Glucose, Urine (Dipstick) Normal (Negative); Ketone, Urine Trace mg/dL (Negative); Leukocyte Negative Leu/uL (Negative); Mucous/LPF Rare LPF (<2+); Nitrite Negative (Negative); Protein, Urine (Dipstick) 30 mg/dL (Neg-Trace); RBC/HPF 0-3 HPF (0-3); Squamous Epithelial 0-3 HPF (0-3); Urobilinogen Normal mg/dL (Less than 2); WBC/HPF 0-3 HPF (0-3)
[2020-09-03 23:19] LABS: Specific Gravity, Urine 1.053 (1.002-1.036)
[2020-09-04 07:12] LABS: #Lymphocytes 2.4 thou/uL (1.20-3.40); #Monocytes 0.7 thou/uL (0.11-0.59); #Neutrophils 4.3 thou/uL (1.40-6.50); %Basophils 0.5 % (0.0-1.0); %Eosinophils 0.6 % (0.0-10.0); %Lymphocytes 32.1 % (21.0-51.0); %Monocytes 9.6 % (0.0-10.0); %Neutrophils 57.2 % (42.0-75.0); Hemoglobin 12.2 g/dL (12.0-16.0); Mean Corpuscular HGB CONC 32.1 g/dL (32.0-36.0); Mean Corpuscular Hemoglobin 34.3 pg (27.0-31.0); Mean Platelet Volume 8.5 fL (7.4-10.4); Platelet Count 115 thou/uL (130-400); RBC Distribution Width 19.4 % (11.5-14.5); Red Blood Cell (RBC) Count 3.55 mill/uL (4.20-5.40); White Blood Cell (WBC) Count 7.5 thou/uL (4.8-10.8)
[2020-09-04 07:26] LABS: ALT (SGPT) 18 U/L (8-55); AST (SGOT) 26 U/L (5-34); Albumin 3.7 g/dL (3.4-4.8); Alkaline Phosphatase 79 U/L (40-110); Anion Gap 12 mmol/L (10-20); BUN (Urea Nitrogen) 28 mg/dL (9.8-20.1); Bilirubin, Total 2.6 mg/dL (0.2-1.2); Calc. Creatinine Clearance 89 mL/min (70-130); Calcium 8.7 mg/dL (7.8-10.44); Carbon Dioxide 28 mmol/L (23-31); Chloride 107 mmol/L (98-107); Globulin 2.3 g/dL (2.4-3.5); Glucose 80 mg/dL (80-115); Potassium 4.5 mmol/L (3.5-5.1); Sodium 142 mmol/L (136-145)
[2020-09-04 08:14] LABS: Bite Cells MODERATE= 6-15 cells (100X) (0-1/hpf); MDiff Complete? YES; Platelet Morphology Comment Appears Decreased; Polychromasia MODERATE = 3-4 cells (100X) (0-2/hpf); Reflex for Review?? YES; Schistocytes SLIGHT = 2-5 cells (100X) (0-1/hpf); Spherocytes SLIGHT = 1-5 cells (100X) (None Seen)
[2020-09-04] MEDS ORDERED: predniSONE 20 MG TAB ONE (08:57)
[2020-09-04] MEDS: predniSONE 20 MG TAB PO SCH (09:04)
[2020-09-04] MEDS ORDERED: HYDROcodone/Acetaminophen 5/325 mg Tablet ONE (09:23)
[2020-09-04] MEDS: HYDROcodone/Acetaminophen 5/325 mg Tablet PO PRN ×2 (09:27→16:43)
[2020-09-04] MEDS: Hydroxychloroquine Sulfate 200 MG TAB PO SCH ×2 (10:38→21:52)
[2020-09-04] MEDS: Cefepime 1 GM in Sodium Chloride 0.9% 100 ML IVPB SCH ×2 (10:38→21:53)
[2020-09-04] MEDS: Apixaban 5 MG TAB PO SCH ×2 (10:38→21:52)
[2020-09-04] MEDS: Sodium Chloride 0.9% 1,000 ML IV SCH (10:39)
--- NOTE | 2020-09-04 12:49 | PDOC.BPN ---
- Brief Progress Note [id number] Progress note dictated
--- NOTE | 2020-09-04 13:07 | PRG ---
DATE OF SERVICE: 09/04/2020 SUBJECTIVE: Briefly, the patient was admitted for hypoxic respiratory failure with oxygen saturation in the 80s. The patient was placed on 4 L/minute nasal cannula. Initial workup including CTA of the chest showed nonspecific chronic-appearing subpleural reticular pulmonary densities, but no PE. After she was admitted for acute kidney injury, gentle IV fluid hydration was started. Elevated lactic acid. Suspected infection. The patient was placed on antibiotics. The patient has a history of systemic lupus erythematosus and also she had right hip pain. Imaging studies were negative. Today, she is awake, mild short of breath. The patient is obese. No new complaints. OBJECTIVE: VITAL SIGNS: Blood pressure is 130/62, oxygen saturation 94%. HEAD AND NECK: Normocephalic, atraumatic. Neck is supple. CHEST: Few bibasilar crackles. HEART: S1, S2. Regular. ABDOMEN: Obese, soft. Bowel sounds present. NEURO: Awake, alert, oriented, moving extremities. PSYCH: Unable to assess. EXTREMITIES: No clubbing. No cyanosis. LABORATORY DATA: WBC 7.5, hemoglobin 12.2, platelets 115. Sodium 142, potassium 4.5, BUN is 28, creatinine 1.1. Lactic acid initially was 2.6, repeat lactic acid 1.6. COVID test negative. ASSESSMENT: 1. Acute hypoxic respiratory failure. Etiology is still not clear. 2. Acute kidney injury, improving. 3. Lactic acidosis, improving. 4. Systemic lupus erythematosus. 5. Morbid obesity. PLAN: 1. Continue with antibiotics for now. 2. Still awaiting on echocardiogram. 3. Continue with gentle fluid IV hydration. 4. Continue to monitor kidney function and urine output. 5. DVT prophylaxis. The patient is on Eliquis. Job ID: [id number]
[2020-09-05] MEDS: Sodium Chloride 0.9% 1,000 ML IV SCH ×2 (04:25→12:41)
[2020-09-05 04:33] LABS: #Basophils 0.1 thou/uL (0.0-0.2); #Lymphocytes 2.2 thou/uL (1.20-3.40); #Monocytes 0.7 thou/uL (0.11-0.59); #Neutrophils 4.4 thou/uL (1.40-6.50); %Basophils 1.7 % (0.0-1.0); %Eosinophils 0.6 % (0.0-10.0); %Lymphocytes 29.3 % (21.0-51.0); %Monocytes 9.5 % (0.0-10.0); %Neutrophils 58.9 % (42.0-75.0); Hemoglobin 11.8 g/dL (12.0-16.0); Mean Corpuscular HGB CONC 31.2 g/dL (32.0-36.0); Mean Corpuscular Hemoglobin 32.8 pg (27.0-31.0); Mean Platelet Volume 8.4 fL (7.4-10.4); Platelet Count 122 thou/uL (130-400); RBC Distribution Width 19.1 % (11.5-14.5); White Blood Cell (WBC) Count 7.4 thou/uL (4.8-10.8)
[2020-09-05 04:51] LABS: ALT (SGPT) 15 U/L (8-55); AST (SGOT) 25 U/L (5-34); Albumin 3.5 g/dL (3.4-4.8); Alkaline Phosphatase 75 U/L (40-110); Anion Gap 13 mmol/L (10-20); BUN (Urea Nitrogen) 19 mg/dL (9.8-20.1); Bilirubin, Total 2.8 mg/dL (0.2-1.2); Calc. Creatinine Clearance 121 mL/min (70-130); Calcium 8.7 mg/dL (7.8-10.44); Carbon Dioxide 23 mmol/L (23-31); Chloride 107 mmol/L (98-107); Globulin 2.3 g/dL (2.4-3.5); Glucose 77 mg/dL (80-115); Potassium 4.1 mmol/L (3.5-5.1); Protein, Total 5.8 g/dL (5.8-8.1); Sodium 139 mmol/L (136-145)
[2020-09-05] MEDS ORDERED: Prevnar 13-Val Conj/PF 0.5 ML SYRINGE IM ONE (09:00)
[2020-09-05] MEDS: Apixaban 5 MG TAB PO SCH ×2 (09:27→21:17)
[2020-09-05] MEDS: Pregabalin 75 MG CAP PO SCH (09:27)
[2020-09-05] MEDS: predniSONE 20 MG TAB PO SCH (09:27)
[2020-09-05] MEDS: HYDROcodone/Acetaminophen 5/325 mg Tablet PO PRN ×2 (09:28→14:18)
[2020-09-05] MEDS: Hydroxychloroquine Sulfate 200 MG TAB PO SCH ×2 (09:33→21:17)
[2020-09-05] MEDS: Cefepime 1 GM in Sodium Chloride 0.9% 100 ML IVPB SCH (09:34)
--- NOTE | 2020-09-05 17:04 | PRG ---
DATE OF SERVICE: 09/05/2020 SUBJECTIVE: The patient is sitting up in bed. She said that she is breathing better with oxygen. Denies chest pain. OBJECTIVE: GENERAL: She is awake, alert, sitting up in bed, not in acute distress. VITAL SIGNS: Temperature 98.1, pulse is 76, respiratory rate is 20, oxygen saturation 94% on 2.5 L/minute nasal cannula, blood pressure is 152/81. HEAD AND NECK: Normocephalic, atraumatic. Neck is supple. CHEST: Diminished air entry bilaterally. HEART: S1, S2. Regular. ABDOMEN: Obese, soft. Bowel sounds present. NEUROLOGIC: Awake, alert, oriented. No focal deficits. PSYCH: Normal mood. EXTREMITIES: No clubbing or cyanosis. LABORATORY DATA: WBC 7.4, hemoglobin 11.8, and platelets 122. Sodium is 139, potassium 4.1, BUN is 19, creatinine 0.8. ASSESSMENT: 1. Acute hypoxic respiratory failure. No obvious source of infection. We will discontinue IV antibiotics. 2. Acute kidney injury, improving. 3. Lactic acidosis, improved. 4. Systemic lupus erythematosus. 5. Morbid obesity. PLAN: 1. We will discontinue IV antibiotics and monitored the patient. No obvious source of infection at this time. 2. Still awaiting for 2D echo results. The patient has been hypoxic, no clear cause, rule out pulmonary hypertension. 3. We will discontinue IV fluids. The patient's kidney function improved. 4. Possible discharge in a.m. if the patient's condition is stable. She may need home oxygen. Job ID: [id number]
[2020-09-05] MEDS ORDERED: Pregabalin 75 MG CAP PO SCH (21:00)
[2020-09-06 04:13] LABS: #Basophils 0.1 thou/uL (0.0-0.2); #Lymphocytes 2.1 thou/uL (1.20-3.40); #Neutrophils 6.1 thou/uL (1.40-6.50); %Basophils 1.5 % (0.0-1.0); %Eosinophils 0.5 % (0.0-10.0); %Lymphocytes 22.9 % (21.0-51.0); %Monocytes 10.3 % (0.0-10.0); %Neutrophils 64.8 % (42.0-75.0); Hemoglobin 12.2 g/dL (12.0-16.0); Mean Corpuscular Hemoglobin 33.9 pg (27.0-31.0); Mean Platelet Volume 8.2 fL (7.4-10.4); Platelet Count 124 thou/uL (130-400); RBC Distribution Width 18.7 % (11.5-14.5); Red Blood Cell (RBC) Count 3.61 mill/uL (4.20-5.40); White Blood Cell (WBC) Count 9.3 thou/uL (4.8-10.8)
[2020-09-06 04:42] LABS: Albumin 3.4 g/dL (3.4-4.8); Anion Gap 9 mmol/L (10-20); BUN (Urea Nitrogen) 16 mg/dL (9.8-20.1); Bilirubin, Total 2.4 mg/dL (0.2-1.2); Calc. Creatinine Clearance 128 mL/min (70-130); Carbon Dioxide 28 mmol/L (23-31); Chloride 107 mmol/L (98-107); Glucose 81 mg/dL (80-115); Potassium 4.2 mmol/L (3.5-5.1); Protein, Total 5.7 g/dL (5.8-8.1); Sodium 140 mmol/L (136-145)
[2020-09-06 04:43] LABS: ALT (SGPT) 15 U/L (8-55); AST (SGOT) 23 U/L (5-34); Alkaline Phosphatase 73 U/L (40-110); Globulin 2.3 g/dL (2.4-3.5)
[2020-09-06] MEDS: Apixaban 5 MG TAB PO SCH (09:50)
[2020-09-06] MEDS: Hydroxychloroquine Sulfate 200 MG TAB PO SCH (09:50)
[2020-09-06] MEDS: Pregabalin 75 MG CAP PO SCH (09:50)
[2020-09-06] MEDS: predniSONE 20 MG TAB PO SCH (09:50)
[2020-09-06] MEDS: HYDROcodone/Acetaminophen 5/325 mg Tablet PO PRN ×2 (09:51→16:07)
--- NOTE | 2020-09-06 10:50 | PDOC.BPN ---
- Brief Progress Note [id number] Discharge summary dictated
[2020-09-06 15:03] VITALS: BP 123/57; TEMP 97.8
--- NOTE | 2020-09-07 07:53 | DIS ---
DATE OF ADMISSION: 09/04/2020 DATE OF DISCHARGE: 09/06/2020 DISCHARGE DIAGNOSES: 1. Lactic acidosis, resolved. 2. Acute kidney injury, resolved. 3. Right hip pain. Hip x-ray is negative, hip pain improved. 4. Acute hypoxic respiratory failure. Workup including CTA of the chest shows chronic changes, no pulmonary embolus, 2D echo unremarkable. We will assess the patient for home oxygen. 5. Systemic lupus erythematosus. 6. Morbid obesity. 7. History of pulmonary embolism, on anticoagulation. 8. History of Hodgkin lymphoma. BRIEF HOSPITAL COURSE: Ms. Topete is a 60-year-old female with history of pulmonary embolism, on Eliquis, history of Hodgkin lymphoma among others, who presented to the emergency room initially for right hip pain. Imaging studies including x-ray of the hip, no acute finding. While in the emergency room, the patient was found to be hypoxic with O2 saturation in the 80s, also was found to have acute kidney injury with creatinine above her baseline, also she was found to have lactic acidosis. Initially, the patient was treated with IV antibiotics, but no obvious source of infection was found. IV antibiotic discontinued. The patient's lactic acidosis and acute kidney injury improved with IV fluid hydration. The patient continued to require oxygen during hospital stay. The patient stated that she had lung function test in the past and she was told that she has restrictive lung disease. According to her, she does require oxygen. Overall, the patient is feeling better. She has been working with physical therapy the last few days. The patient would like to go home today. PHYSICAL EXAMINATION: GENERAL: The patient is awake, alert, does not appear to be in any distress. VITAL SIGNS: Blood pressure is 131/64, pulse is 72, oxygen saturation is 94% on 2.5 L/minute nasal cannula, and temperature is 98. HEENT: Head; normocephalic, atraumatic. NECK: Supple. CHEST: Fair bilateral air entry. HEART: S1 and S2. Regular. ABDOMEN: Obese, soft. Bowel sounds present. NEUROLOGIC: Awake, alert, oriented. PSYCH: Normal mood. EXTREMITIES: No clubbing. No cyanosis. PLAN: 1. The patient to be discharged home. 2. We will check for home oxygen requirement prior to discharge. If the patient requires oxygen, we will arrange for home oxygen. 3. The patient to resume her home medications. ACTIVITY: As tolerated. FOLLOWUP: The patient is to follow up with her primary care physician as early as possible. The patient to report back if she gets more short of breath or having worsening of her hip pain or fever, or any signs of infection. Job ID: [id number]
== END 2020-09-06 17:20 | disposition home health service (06) | DRG 189 ==
LOC: ERS 09:31 → 2NO 12:50 → ERHOLD 13:14 → OBSVTOIN 09-04 13:49 → 2NO 09-04 15:41
PROVIDERS: ADMIT Internal Medicine; ATTEND Internal Medicine
DX: J96.01 Acute respiratory failure with hypoxia (principal); E87.2 Acidosis; N17.9 Acute kidney failure, unspecified; Z68.41 Body mass index [BMI] 40.0-44.9, adult; Z23 Encounter for immunization; M32.9 Systemic lupus erythematosus, unspecified; M35.00 Sjogren syndrome, unspecified; E66.01 Morbid (severe) obesity due to excess calories; Z96.641 Presence of right artificial hip joint; Z96.652 Presence of left artificial knee joint; M25.551 Pain in right hip; Z86.718 Personal history of other venous thrombosis and embolism; Z79.01 Long term (current) use of anticoagulants; Z86.711 Personal history of pulmonary embolism; Z88.2 Allergy status to sulfonamides; Z88.5 Allergy status to narcotic agent; Z85.71 Personal history of Hodgkin lymphoma; Z87.891 Personal history of nicotine dependence; Z90.49 Acquired absence of other specified parts of digestive tract; Z98.84 Bariatric surgery status
CPT/HCPCS: 36415; 51702; 71275; 80053; 81003; 81015; 82550; 83605; 83735; 83880; 84484; 85025; 85060; 87040; 87086; 87635; 90471; 90670; 93005; 93306; 96365; 96375; 96376; G0009; G0378; J0456; J0692; J0696; J2270; J2405; J3370; J3490; J7030; J7512; Q9967; U0003; U0005

== ENCOUNTER 2021-01-10 13:22 | Inpatient (IN) | payer MEDICARE, BC ==
[~2021-01-10 13:22] MED LIST changes: -Gadobenate Dimeglumine 529 MG/1 ML (20ML VIAL) ONE; +Iopamidol-370 76% 500 ML 1 ML ONE
[2021-01-10 14:13] LABS: #Eosinphils 0.1 thou/uL (0.0-0.7); #Lymphocytes 1.3 thou/uL (1.20-3.40); #Monocytes 0.9 thou/uL (0.11-0.59); #Neutrophils 11.1 thou/uL (1.40-6.50); %Basophils 0.3 % (0.0-1.0); %Eosinophils 0.4 % (0.0-10.0); %Lymphocytes 9.5 % (21.0-51.0); %Monocytes 6.7 % (0.0-10.0); Hemoglobin 13.7 g/dL (12.0-16.0); Mean Corpuscular HGB CONC 34.3 g/dL (32.0-36.0); Mean Corpuscular Hemoglobin 35.5 pg (27.0-31.0); Mean Platelet Volume 8.2 fL (7.4-10.4); Platelet Count 134 thou/uL (130-400); RBC Distribution Width 14.6 % (11.5-14.5); Red Blood Cell (RBC) Count 3.87 mill/uL (4.20-5.40); White Blood Cell (WBC) Count 13.4 thou/uL (4.8-10.8)
[2021-01-10 14:28] LABS: ALT (SGPT) 21 U/L (8-55); AST (SGOT) 30 U/L (5-34); Alkaline Phosphatase 87 U/L (40-110); Anion Gap 18 mmol/L (10-20); BUN (Urea Nitrogen) 21 mg/dL (9.8-20.1); Bilirubin, Total 2.6 mg/dL (0.2-1.2); Calc. Creatinine Clearance 0 mL/min (70-130); Calcium 9.3 mg/dL (7.8-10.44); Carbon Dioxide 23 mmol/L (23-31); Chloride 105 mmol/L (98-107); Globulin 2.4 g/dL (2.4-3.5); Glucose 98 mg/dL (80-115); Potassium 3.9 mmol/L (3.5-5.1); Protein, Total 6.4 g/dL (5.8-8.1); Sodium 142 mmol/L (136-145)
[2021-01-10 16:24] LABS: Actual Bicarbonate (HCO3a) 25.8 mEq/L (22-28); Analyzer IN Cardio ER; Base Excess (BEa) 0.4 mEq/L (-2.0 to +3.0); CO2 Tension 44.7 mmHg (35.0-45.0); Calcium, Ionized (arterial) 1.16 mmol/L (1.12-1.30); Carboxyhemoglobin (COHb) 2.4 gm% (0.0-3.0); Hemoglobin (Hb) 12.8 g/dL (12.0-16.0); O2 Tension (PaO2), arterial 132.5 mmHg (> 80.0); Potassium - ABG Lab 4.25 mmol/L (3.70-5.30); pH, Arterial 7.38 (7.35-7.45)
[2021-01-10 16:25] LABS: ALV-art Gradient 96.825 mmHg (0-20); Puncture Site RBA
[2021-01-10] MEDS ORDERED: HYDROcodone/Acetaminophen 5/325 mg Tablet PO PRN (17:24)
[2021-01-10 18:27] LABS: Troponin I Less than 0.010 ng/mL (< 0.028)
[2021-01-10 20:38] LABS: SARS-CoV-2 NAA Rapid Test Not Detected (NotDetected)
[2021-01-10 20:52] LABS: Troponin I 0.011 ng/mL (< 0.028)
[2021-01-10 21:45] VITALS: BMI 42.0
[2021-01-10] MEDS: Apixaban 5 MG TAB PO SCH (22:05)
[2021-01-10] MEDS: Hydroxychloroquine Sulfate 200 MG TAB PO SCH (22:05)
[2021-01-10] MEDS: Calcium Carbonate 600 MG TAB PO SCH (22:05)
[2021-01-10] MEDS: Pregabalin 75 MG CAP PO SCH (22:06)
[2021-01-11] MEDS: Pregabalin 75 MG CAP PO SCH ×2 (08:24→21:01)
[2021-01-11] MEDS: Calcium Carbonate 600 MG TAB PO SCH ×2 (08:25→21:02)
[2021-01-11] MEDS: predniSONE 20 MG TAB PO SCH (08:25)
[2021-01-11] MEDS: Cholecalciferol 1,000 UNITS (25 MCG) TAB PO SCH (08:26)
[2021-01-11] MEDS: Pantoprazole 40 MG GRANULES PACKET PO SCH (08:27)
[2021-01-11] MEDS: Apixaban 5 MG TAB PO SCH ×2 (08:27→21:02)
[2021-01-11] MEDS: Stress 600 With Zinc 1 TAB PO SCH (08:47)
[2021-01-11] MEDS: Hydroxychloroquine Sulfate 200 MG TAB PO SCH ×2 (08:47→08:53)
[2021-01-11] MEDS: Folic Acid 1 MG TAB PO SCH (08:47)
[2021-01-12 06:28] LABS: #Basophils 0.1 thou/uL (0.0-0.2); #Eosinphils 0.1 thou/uL (0.0-0.7); #Lymphocytes 2.1 thou/uL (1.20-3.40); #Monocytes 0.6 thou/uL (0.11-0.59); #Neutrophils 3.3 thou/uL (1.40-6.50); %Basophils 0.9 % (0.0-1.0); %Eosinophils 1.5 % (0.0-10.0); %Lymphocytes 34.1 % (21.0-51.0); %Monocytes 10.3 % (0.0-10.0); %Neutrophils 53.2 % (42.0-75.0); Hemoglobin 12.4 g/dL (12.0-16.0); Mean Platelet Volume 8.2 fL (7.4-10.4); Platelet Count 112 thou/uL (130-400); RBC Distribution Width 14.4 % (11.5-14.5); Red Blood Cell (RBC) Count 3.53 mill/uL (4.20-5.40); White Blood Cell (WBC) Count 6.1 thou/uL (4.8-10.8)
[2021-01-12 06:46] LABS: Anion Gap 16 mmol/L (10-20); BUN (Urea Nitrogen) 15 mg/dL (9.8-20.1); Calc. Creatinine Clearance 115 mL/min (70-130); Calcium 8.6 mg/dL (7.8-10.44); Carbon Dioxide 23 mmol/L (23-31); Chloride 106 mmol/L (98-107); Glucose 80 mg/dL (80-115); Potassium 4.2 mmol/L (3.5-5.1); Sodium 141 mmol/L (136-145)
[2021-01-12] MEDS: Cholecalciferol 1,000 UNITS (25 MCG) TAB PO SCH (09:18)
[2021-01-12] MEDS: Pregabalin 75 MG CAP PO SCH ×2 (09:19→20:47)
[2021-01-12] MEDS: Pantoprazole 40 MG GRANULES PACKET PO SCH ×2 (09:20→09:30)
[2021-01-12] MEDS: Calcium Carbonate 600 MG TAB PO SCH ×2 (09:20→20:48)
[2021-01-12] MEDS: predniSONE 20 MG TAB PO SCH (09:20)
[2021-01-12] MEDS: Folic Acid 1 MG TAB PO SCH (09:20)
[2021-01-12] MEDS: Apixaban 5 MG TAB PO SCH ×2 (09:20→20:48)
[2021-01-12] MEDS: Hydroxychloroquine Sulfate 200 MG TAB PO SCH ×2 (09:22→20:50)
[2021-01-12] MEDS: Stress 600 With Zinc 1 TAB PO SCH (09:23)
[2021-01-13] MEDS: Pregabalin 75 MG CAP PO SCH ×2 (09:26→20:45)
[2021-01-13] MEDS: Calcium Carbonate 600 MG TAB PO SCH ×2 (09:26→20:45)
[2021-01-13] MEDS: Apixaban 5 MG TAB PO SCH ×2 (09:28→20:45)
[2021-01-13] MEDS: Cholecalciferol 1,000 UNITS (25 MCG) TAB PO SCH (09:28)
[2021-01-13] MEDS: predniSONE 20 MG TAB PO SCH (09:29)
[2021-01-13] MEDS: Folic Acid 1 MG TAB PO SCH (09:29)
[2021-01-13] MEDS: Hydroxychloroquine Sulfate 200 MG TAB PO SCH ×2 (09:30→20:45)
[2021-01-13] MEDS: Pantoprazole 40 MG GRANULES PACKET PO SCH (09:30)
[2021-01-13] MEDS: Stress 600 With Zinc 1 TAB PO SCH (09:33)
[2021-01-14] MEDS: Cholecalciferol 1,000 UNITS (25 MCG) TAB PO SCH (08:21)
[2021-01-14] MEDS: Calcium Carbonate 600 MG TAB PO SCH (08:22)
[2021-01-14] MEDS: Hydroxychloroquine Sulfate 200 MG TAB PO SCH (08:22)
[2021-01-14] MEDS: Pregabalin 75 MG CAP PO SCH (08:22)
[2021-01-14] MEDS: predniSONE 20 MG TAB PO SCH (08:23)
[2021-01-14] MEDS: Apixaban 5 MG TAB PO SCH (08:23)
[2021-01-14] MEDS: Pantoprazole 40 MG GRANULES PACKET PO SCH (08:23)
[2021-01-14] MEDS: Folic Acid 1 MG TAB PO SCH (08:23)
[2021-01-14] MEDS: Stress 600 With Zinc 1 TAB PO SCH (10:53)
[2021-01-14 11:25] VITALS: BP 138/74; TEMP 98.1
== END 2021-01-14 11:35 | disposition home or self-care (01) | DRG 811 ==
LOC: ERS 13:22 → ERHOLD 15:52 → T4-A 20:53
PROVIDERS: ADMIT Internal Medicine; ATTEND Family Medicine
DX: D74.8 Other methemoglobinemias (principal); J96.01 Acute respiratory failure with hypoxia; S32.019A Unspecified fracture of first lumbar vertebra, initial encounter for closed fracture; Z68.41 Body mass index [BMI] 40.0-44.9, adult; Z20.822 Contact with and (suspected) exposure to COVID-19; M35.00 Sjogren syndrome, unspecified; E66.01 Morbid (severe) obesity due to excess calories; T37.1X5A Adverse effect of antimycobacterial drugs, initial encounter; M32.9 Systemic lupus erythematosus, unspecified; F41.9 Anxiety disorder, unspecified; F32.9 Major depressive disorder, single episode, unspecified; M81.0 Age-related osteoporosis without current pathological fracture; G47.33 Obstructive sleep apnea (adult) (pediatric); F40.240 Claustrophobia; X58.XXXA Exposure to other specified factors, initial encounter; Z86.711 Personal history of pulmonary embolism; Z86.718 Personal history of other venous thrombosis and embolism; Z95.5 Presence of coronary angioplasty implant and graft; Z85.71 Personal history of Hodgkin lymphoma; Z98.49 Cataract extraction status, unspecified eye; Z90.49 Acquired absence of other specified parts of digestive tract; Z87.891 Personal history of nicotine dependence; Z88.6 Allergy status to analgesic agent; Z88.8 Allergy status to other drugs, medicaments and biological substances; Z79.899 Other long term (current) drug therapy; Z79.01 Long term (current) use of anticoagulants; Z79.52 Long term (current) use of systemic steroids
CPT/HCPCS: 0240U; 36415; 36600; 71045; 71275; 72100; 80048; 80053; 82805; 83880; 84484; 85025; 93005; 94760; J7512; Q9967

== ENCOUNTER 2021-05-17 09:34 | Outpatient (CLI) | payer MEDICARE, BC | END 2021-05-17 09:35 | disposition home or self-care (01) | LOC: RAD 09:34 | PROVIDERS: ATTEND Internal Medicine Critical Care Medicine | DX: R06.00 Dyspnea, unspecified (principal) | CPT/HCPCS: 71046 ==

== ENCOUNTER 2022-07-14 18:57 | Emergency (ER) | payer MEDICARE, BC ==
[2022-07-14] MEDS ORDERED: Lidocaine 1% PF 5 ML VIAL ONE (21:33)
[2022-07-14] MEDS ORDERED: Bacitracin 1 PK ONE (23:03)
[2022-07-14] MEDS ORDERED: Boostrix 0.5 ML (Tdap) VIAL (>/=7 yrs of age) ONE (23:03)
== END 2022-07-14 23:20 | disposition home or self-care (01) ==
LOC: ERS 18:57
DX: S91.115A Laceration without foreign body of left lesser toe(s) without damage to nail, initial encounter (principal); W26.8XXA Contact with other sharp object(s), not elsewhere classified, initial encounter; Z79.01 Long term (current) use of anticoagulants
CPT/HCPCS: 12001; 90715

== ENCOUNTER 2022-12-22 05:32 | Inpatient (IN) | payer MEDICARE, BC ==
[2022-12-18 15:41] VITALS: BMI 38.9
[2022-12-22] MEDS ORDERED: Propofol 500 MG/50 ML VIAL ONE (06:11)
[2022-12-22] MEDS ORDERED: Midazolam HCl 2 mg/2 ml Vial ONE ×2 (06:22→06:42)
[2022-12-22] MEDS ORDERED: fentaNYL 50 mcg/mL 1 mL Vial ONE ×6 (06:22→14:10)
[2022-12-22] MEDS ORDERED: Lidocaine 1% (PF) 30 ML VIAL ONE ×2 (06:23→06:42)
[2022-12-22] MEDS ORDERED: Bupivacaine PF 0.5% 30 ML VIAL ONE (06:28)
[2022-12-22] MEDS ORDERED: Ropivacaine 0.5% HCl/PF (150 MG/30 ML VIAL) ONE (06:42)
[2022-12-22] MEDS ORDERED: Vancomycin (BATCH) 1.5 GRAM/300 ML BAG ONE (06:44)
[2022-12-22] MEDS ORDERED: Tranexamic Acid 1,000 MG/10 ML VIAL ONE (06:44)
[2022-12-22] MEDS ORDERED: Sodium Chloride 0.9% 100 ML ONE ×2 (06:44→07:03)
[2022-12-22] MEDS ORDERED: Dexamethasone 20 MG/5 ML VIAL ONE (06:53)
[2022-12-22] MEDS ORDERED: Ondansetron PF 4 MG/2 ML Vial ONE (06:53)
[2022-12-22] MEDS ORDERED: ePHEDrine Sulfate 50 MG/10 ML VIAL ONE (06:53)
[2022-12-22] MEDS ORDERED: PHENYLEPHRINE-NS 100 MCG/ML 10 ML SYRINGE ONE (06:53)
[2022-12-22] MEDS ORDERED: Calcium Chloride 1 GM/10 ML Abboject SYRINGE ONE (06:53)
[2022-12-22] MEDS ORDERED: Zolpidem Tartrate 5 MG TAB PO PRN (06:55)
[2022-12-22] MEDS ORDERED: Ondansetron PF 4 MG/2 ML Vial IVP PRN (06:55)
[2022-12-22] MEDS ORDERED: Promethazine HCl 25 MG/ML VIAL IM PRN ×2 (06:55→09:18)
[2022-12-22] MEDS ORDERED: Acetaminophen 325 MG TAB PO PRN (06:55)
[2022-12-22] MEDS ORDERED: diphenhydrAMINE 25 MG CAP PO PRN (06:55)
[2022-12-22] MEDS ORDERED: fentaNYL 50 mcg/mL 1 mL Vial SLOW IVP PRN (06:55)
[2022-12-22] MEDS ORDERED: HYDROcodone/Acetaminophen 10/325 mg Tablet PO PRN (06:55)
[2022-12-22] MEDS ORDERED: CEFAZOLIN 2 GM VIAL ONE ×2 (07:03→15:47)
[2022-12-22] MEDS ORDERED: Dexmedetomidine 200 MCG/2 ML VIAL ONE (07:24)
[2022-12-22] MEDS ORDERED: Scopolamine 1.5 mg/72 hour Patch ONE (09:06)
[2022-12-22] MEDS ORDERED: Meperidine HCl/PF 25 MG/ML VIAL SLOW IVP PRN (09:18)
[2022-12-22] MEDS ORDERED: HYDROmorphone 2 MG/ML VIAL SLOW IVP PRN (09:18)
[2022-12-22] MEDS: Sodium Chloride 0.9% 1,000 ML IV SCH ×2 (10:39→17:59)
[2022-12-22] MEDS: CEFAZOLIN 2 GM in Sodium Chloride 0.9% 100 ML IVPB SCH ×2 (15:55→23:46)
[2022-12-22] MEDS: Hydroxychloroquine Sulfate 200 MG TAB PO SCH ×2 (17:49→21:04)
[2022-12-22] MEDS: DULoxetine 30 MG CAP PO SCH (17:49)
[2022-12-22] MEDS: Folic Acid 1 MG TAB PO SCH (17:49)
[2022-12-22] MEDS: predniSONE 5 MG TAB PO SCH (17:50)
[2022-12-22] MEDS: Cholecalciferol 1,000 UNITS (25 MCG) TAB PO SCH (17:50)
[2022-12-22] MEDS: Pregabalin 75 MG CAP PO SCH ×2 (17:50→21:04)
[2022-12-22] MEDS: HYDROcodone/Acetaminophen 10/325 mg Tablet PO PRN (18:09)
[2022-12-22] MEDS: tiZANidine HCl 4 MG TAB PO PRN (21:04)
[2022-12-23] MEDS: Sodium Chloride 0.9% 1,000 ML IV SCH ×3 (05:37→22:22)
[2022-12-23] MEDS: HYDROcodone/Acetaminophen 10/325 mg Tablet PO PRN ×3 (05:48→20:58)
[2022-12-23 06:26] LABS: Mean Corpuscular HGB CONC 30.7 g/dL (32.0-36.0); Mean Corpuscular Hemoglobin 28.9 pg (27.0-31.0); Mean Platelet Volume 9.7 fL (7.4-10.4); Platelet Count 146 10x3/uL (130-400); RBC Distribution Width 13.5 % (11.5-14.5); Red Blood Cell (RBC) Count 3.81 mill/uL (4.20-5.40); White Blood Cell (WBC) Count 14.3 10x3/uL (4.8-10.8)
[2022-12-23] MEDS: DULoxetine 30 MG CAP PO SCH (08:53)
[2022-12-23] MEDS: Senokot S 8.6-50 MG TAB PO SCH ×2 (08:53→20:57)
[2022-12-23] MEDS: Cholecalciferol 1,000 UNITS (25 MCG) TAB PO SCH (08:53)
[2022-12-23] MEDS: predniSONE 5 MG TAB PO SCH (08:54)
[2022-12-23] MEDS: Pregabalin 75 MG CAP PO SCH ×2 (08:54→20:57)
[2022-12-23] MEDS: Folic Acid 1 MG TAB PO SCH (08:55)
[2022-12-23] MEDS: Ferrous Gluconate 324 MG TAB PO SCH ×2 (08:55→20:57)
[2022-12-23] MEDS: Multivitamin W/ Minerals 1 TAB PO SCH (08:55)
[2022-12-23] MEDS: Apixaban 5 MG TAB PO SCH ×2 (08:55→20:57)
[2022-12-23] MEDS: Hydroxychloroquine Sulfate 200 MG TAB PO SCH ×2 (08:55→20:57)
[2022-12-23] MEDS: tiZANidine HCl 4 MG TAB PO PRN (11:30)
[2022-12-24] MEDS: tiZANidine HCl 4 MG TAB PO PRN (02:56)
[2022-12-24] MEDS: HYDROcodone/Acetaminophen 10/325 mg Tablet PO PRN (02:56)
[2022-12-24] MEDS: Cholecalciferol 1,000 UNITS (25 MCG) TAB PO SCH (08:55)
[2022-12-24] MEDS: Senokot S 8.6-50 MG TAB PO SCH ×2 (08:55→20:03)
[2022-12-24] MEDS: DULoxetine 30 MG CAP PO SCH (08:55)
[2022-12-24] MEDS: predniSONE 5 MG TAB PO SCH (08:55)
[2022-12-24] MEDS: Ferrous Gluconate 324 MG TAB PO SCH ×2 (08:55→20:04)
[2022-12-24] MEDS: Multivitamin W/ Minerals 1 TAB PO SCH (08:55)
[2022-12-24] MEDS: Folic Acid 1 MG TAB PO SCH (08:56)
[2022-12-24] MEDS: Apixaban 5 MG TAB PO SCH ×2 (08:56→20:02)
[2022-12-24] MEDS: Hydroxychloroquine Sulfate 200 MG TAB PO SCH ×2 (08:56→20:04)
[2022-12-24] MEDS: Pregabalin 75 MG CAP PO SCH ×2 (08:56→20:02)
[2022-12-24] MEDS: Sodium Chloride 0.9% 1,000 ML IV SCH (08:58)
[2022-12-24 16:55] VITALS: BP 135/73; TEMP 98.7
== END 2022-12-24 21:44 | DRG 470 ==
LOC: SDC 05:32 → SJJU 16:45 → OBSVTOIN 12-24 06:57
PROVIDERS: ADMIT Orthopaedic Surgery; ATTEND Orthopaedic Surgery
PROC: 0SRB0J9 Replacement of Left Hip Joint with Synthetic Substitute, Cemented, Open Approach (ICD-10-PCS; principal; 2022-12-22)
DX: M87.052 Idiopathic aseptic necrosis of left femur (principal); F32.A Depression, unspecified; M81.0 Age-related osteoporosis without current pathological fracture; E66.01 Morbid (severe) obesity due to excess calories; F41.9 Anxiety disorder, unspecified; M19.90 Unspecified osteoarthritis, unspecified site; G89.29 Other chronic pain; Z96.641 Presence of right artificial hip joint; M17.11 Unilateral primary osteoarthritis, right knee; Z98.890 Other specified postprocedural states; Z90.49 Acquired absence of other specified parts of digestive tract; Z68.39 Body mass index [BMI] 39.0-39.9, adult
CPT/HCPCS: 36415; 85027; 96374; C1776; G0378; J1100; J2001; J2250; J2405; J2704; J2795; J3010; J3370; J3490; J7050; J7512; S0020

== ENCOUNTER 2023-04-29 11:45 | Outpatient (CLI) | payer MEDICARE, BC | END 2023-04-29 11:46 | LOC: PET 11:45 | PROVIDERS: ATTEND Internal Medicine Hematology & Oncology | DX: C81.73 Other Hodgkin lymphoma, intra-abdominal lymph nodes (principal) | CPT/HCPCS: 78815; A9552 ==

== ENCOUNTER 2023-05-14 09:59 | Outpatient (CLI) | payer MEDICARE, BC | END 2023-05-14 10:00 | disposition home or self-care (01) | LOC: BICMAMMO 09:59 | PROVIDERS: ATTEND Nurse Practitioner Family | DX: Z12.31 Encounter for screening mammogram for malignant neoplasm of breast (principal); Z80.3 Family history of malignant neoplasm of breast; Z85.72 Personal history of non-Hodgkin lymphomas | CPT/HCPCS: 77063; 77067 ==

== ENCOUNTER 2023-06-01 13:17 | Outpatient (CLI) | payer MEDICARE, BC ==
[~2023-06-01 13:17] MED LIST changes: +Iopamidol 370 76% 100 ML VIAL ONE; -Iopamidol-370 76% 500 ML 1 ML ONE
== END 2023-06-01 13:18 | disposition home or self-care (01) ==
LOC: CT 13:17
DX: K11.20 Sialoadenitis, unspecified (principal)
CPT/HCPCS: 70491; 82565

== ENCOUNTER 2023-11-18 10:09 | Outpatient (CLI) | payer MEDICARE | END 2023-11-18 10:10 | disposition home or self-care (01) | LOC: BICMAMMO 10:09 | PROVIDERS: ATTEND Internal Medicine Rheumatology | DX: M81.0 Age-related osteoporosis without current pathological fracture (principal) | CPT/HCPCS: 77080 ==

== ENCOUNTER 2023-12-10 10:18 | Outpatient (CLI) | payer MEDICARE | END 2023-12-10 10:19 | disposition home or self-care (01) | LOC: BICCT 10:18 | PROVIDERS: ATTEND Physician Assistant Medical | DX: R10.9 Unspecified abdominal pain (principal); K57.30 Diverticulosis of large intestine without perforation or abscess without bleeding; Z87.19 Personal history of other diseases of the digestive system | CPT/HCPCS: 74177; 82565 ==

== ENCOUNTER 2024-01-22 09:26 | Outpatient (CLI) | payer BC, MEDICARE | END 2024-01-22 09:27 | disposition home or self-care (01) | LOC: BICRAD 09:26 | PROVIDERS: ATTEND Family Medicine | DX: R05.9 Cough, unspecified (principal); J18.1 Lobar pneumonia, unspecified organism | CPT/HCPCS: 71046 ==

== ENCOUNTER 2024-05-24 13:02 | Outpatient (CLI) | payer MEDICARE | END 2024-05-24 13:03 | disposition home or self-care (01) | LOC: BICRAD 13:02 | PROVIDERS: ATTEND Family Medicine | DX: S80.02XA Contusion of left knee, initial encounter (principal); S40.012A Contusion of left shoulder, initial encounter ==

== ENCOUNTER 2024-06-28 10:49 | Outpatient (CLI) | payer MEDICARE | END 2024-06-28 10:50 | disposition home or self-care (01) | LOC: BICMAMMO 10:49 | PROVIDERS: ATTEND Family Medicine | DX: Z12.31 Encounter for screening mammogram for malignant neoplasm of breast (principal); Z80.3 Family history of malignant neoplasm of breast | CPT/HCPCS: 77063; 77067 ==

== ENCOUNTER 2024-06-28 15:10 | Emergency (ER) | payer MEDICARE ==
[~2024-06-28 15:10] MED LIST changes: -Iopamidol 370 76% 100 ML VIAL ONE; +Iopamidol-370 76% 500 ML MDV (1 ML CHARGE) ONE
[2024-06-28 18:21] LABS: #Basophils 0.04 10x3/uL (0.0-0.2); #Eosinophils Less than 0.03 10x3/uL (0.0-0.7); %Basophils 0.6 % (0.0-1.0); %Lymphocytes 16.8 % (21.0-51.0); %Monocytes 4.7 % (0.0-10.0); %Neutrophils 77.6 % (42.0-75.0); Hematocrit 43.1 % (36.0-47.0); Hemoglobin 13.5 g/dL (12.0-16.0); Mean Corpuscular HGB CONC 31.3 g/dL (32.0-36.0); Mean Corpuscular Hemoglobin 27.4 pg (27.0-31.0); Mean Corpuscular Volume 87.4 fL (78.0-98.0); Mean Platelet Volume 9.8 fL (7.4-10.4); Platelet Count 156 10x3/uL (130-400); RBC Distribution Width 15.9 % (11.5-14.5); Red Blood Cell (RBC) Count 4.93 mill/uL (4.20-5.40)
[2024-06-28 18:38] LABS: ALT (SGPT) 11 U/L (8-55); AST (SGOT) 20 U/L (5-34); Albumin 3.8 g/dL (3.4-4.8); Alkaline Phosphatase 105 U/L (40-110); Anion Gap 12 mmol/L (10-20); BUN (Urea Nitrogen) 16 mg/dL (9.8-20.1); Bilirubin, Total 1.4 mg/dL (0.2-1.2); Calc. Creatinine Clearance 0 mL/min (70-130); Calcium 9.3 mg/dL (7.8-10.44); Carbon Dioxide 27 mmol/L (23-31); Chloride 104 mmol/L (98-107); Estimated GFR 59; Globulin 3.2 g/dL (2.4-3.5); Glucose 91 mg/dL (80-115); Lipase 22 U/L (8-78); Potassium 4.4 mmol/L (3.5-5.1); Sodium 139 mmol/L (136-145)
[2024-06-28] MEDS ORDERED: Ondansetron PF 4 MG/2 ML Vial ONE (19:57)
[2024-06-28] MEDS ORDERED: Morphine 4 MG/ML VIAL ONE (19:57)
== END 2024-06-28 21:40 | disposition home or self-care (01) ==
LOC: ERS 15:10
DX: R10.9 Unspecified abdominal pain (principal); R11.0 Nausea; Z86.711 Personal history of pulmonary embolism
CPT/HCPCS: 74177; 80053; 83605; 83690; 85025; 93005; J2272; J2405; 36415; 96374; 96375; Q9967

== ENCOUNTER 2024-08-10 08:37 | Outpatient (CLI) | payer MEDICARE ==
[2024-08-10] MEDS ORDERED: Iopamidol 370 76% 100 ML VIAL ONE (10:53)
== END 2024-08-10 08:38 | disposition home or self-care (01) ==
LOC: BICCT 08:37
PROVIDERS: ATTEND Internal Medicine Gastroenterology
DX: R10.32 Left lower quadrant pain (principal); N20.0 Calculus of kidney; R93.1 Abnormal findings on diagnostic imaging of heart and coronary circulation
CPT/HCPCS: 36415; 74174; 82565

== ENCOUNTER 2025-03-17 21:10 | Emergency (ER) | payer MEDICARE | END 2025-03-17 23:30 | disposition home or self-care (01) | LOC: ERS 21:10 | DX: S96.911A Strain of unspecified muscle and tendon at ankle and foot level, right foot, initial encounter (principal); X50.9XXA Other and unspecified overexertion or strenuous movements or postures, initial encounter | CPT/HCPCS: 73610; 73630; 96372; 99283; J2270 ==

== ENCOUNTER 2025-06-02 10:30 | Emergency (ER) | payer MEDICARE | END 2025-06-02 13:26 | disposition home or self-care (01) | LOC: ERS 10:30 | DX: R60.0 Localized edema (principal); Z86.711 Personal history of pulmonary embolism; Z86.718 Personal history of other venous thrombosis and embolism; Z79.01 Long term (current) use of anticoagulants ==

== ENCOUNTER 2025-07-11 08:03 | Emergency (ER) | payer MEDICARE ==
[2025-07-11 08:55] LABS: #Basophils 0.04 10x3/uL (0.0-0.2); #Eosinophils 0.19 10x3/uL (0.0-0.7); #Monocytes 0.65 10x3/uL (0.11-0.59); #Neutrophils 6.60 10x3/uL (1.40-6.50); %Basophils 0.4 % (0.0-1.0); %Eosinophils 1.9 % (0.0-10.0); %Lymphocytes 24.6 % (21.0-51.0); %Monocytes 6.5 % (0.0-10.0); %Neutrophils 66.2 % (42.0-75.0); Hematocrit 44.8 % (36.0-47.0); Hemoglobin 13.8 g/dL (12.0-16.0); Mean Corpuscular Hemoglobin 26.1 pg (27.0-31.0); Mean Corpuscular Volume 84.8 fL (78.0-98.0); Platelet Count 207 10x3/uL (130-400); Red Blood Cell (RBC) Count 5.28 mill/uL (4.20-5.40); White Blood Cell (WBC) Count 9.98 10x3/uL (4.8-10.8)
[2025-07-11] MEDS ORDERED: Acetaminophen 500 MG TAB ONE (09:11)
[2025-07-11 09:17] LABS: ALT (SGPT) 14 U/L (Less than 34); AST (SGOT) 23 U/L (11-34); Albumin 3.5 g/dL (3.1-4.5); Alkaline Phosphatase 128 U/L (40-110); Anion Gap 15 mmol/L (10-20); BUN (Urea Nitrogen) 15 mg/dL (9.8-20.1); Bilirubin, Total 1.1 mg/dL (0.3-1.2); Calc. Creatinine Clearance 0 mL/min (70-130); Calcium 10.0 mg/dL (7.8-10.44); Carbon Dioxide 25 mmol/L (23-31); Chloride 108 mmol/L (98-107); Globulin 3.5 g/dL (2.4-3.5); Glucose 84 mg/dL (80-115); Potassium 5.1 mmol/L (3.5-5.1); Sodium 143 mmol/L (136-145)
[2025-07-11 11:28] LABS: Bacteria/HPF None Seen HPF (None Seen); CAUTI Indications for Culture Pelvic or flank pain; Glucose, Urine (Dipstick) Normal (Negative); Leukocyte Negative Leu/uL (Negative); Protein, Urine (Dipstick) Negative (Neg-Trace); RBC/HPF 0-3 HPF (0-3); Specific Gravity, Urine 1.021 (1.002-1.036); WBC/HPF None Seen HPF (0-3)
[2025-07-11 11:31] LABS: Urine Culture Reflex No No
[2025-07-11] MEDS ORDERED: Iopamidol-370 76% 500 ML MDV (1 ML CHARGE) ONE (16:48)
== END 2025-07-11 13:05 | disposition home or self-care (01) ==
LOC: ERS 08:03
DX: S22.069A Unspecified fracture of T7-T8 vertebra, initial encounter for closed fracture (principal); R33.9 Retention of urine, unspecified; Z86.718 Personal history of other venous thrombosis and embolism; Z86.711 Personal history of pulmonary embolism; I10 Essential (primary) hypertension; Z79.01 Long term (current) use of anticoagulants; Z79.899 Other long term (current) drug therapy; X58.XXXA Exposure to other specified factors, initial encounter
CPT/HCPCS: 51702; 71045; 74177; 80053; 81001; 85025; 96374; 99284; J3010; Q9967